=== PATIENT | female | born 1960 ===

== ENCOUNTER 2016-10-07 09:50 | Emergency (ER) | payer MEDICARE, MEDICAID ==
[2016-10-07 09:50] VITALS: BMI 31.4
[2016-10-07 10:19] VITALS: BP 128/74; PULSE 92; RESP 16; TEMP 98.3; O2SAT 97
--- NOTE | 2016-10-07 10:43 | C.PDOC ---
History Of Present Illness The patient, a 56 y/o female who is morbidly obese with PMHx of HTN, DM, and is s/p stroke with right-sided weakness, presents to the ED for evaluation of left buttock pain that radiates down her left lower extremity for 1 week. Patient describes a shooting pain that is 8/10 in severity and reports associated extremity numbness and paresthesia. Patient denies fever, chills, headache, nausea, vomiting. Time Seen by Provider: 10/07/16 10:37 Chief Complaint (Nursing): Back Pain History Per: Patient History/Exam Limitations: no limitations Onset/Duration Of Symptoms: Other (1 week ) Current Symptoms Are (Timing): Still Present Quality Of Discomfort: "Pain", Other (shooting ) Pain Scale Rating Of: 8 Associated Symptoms: New Numbness Additional History Per: Patient Past Medical History Reviewed: Historical Data, Nursing Documentation, Vital Signs Vital Signs: Last Vital Signs Temp 98.3 F 10/07/16 10:18 Pulse 92 H 10/07/16 10:18 Resp 16 10/07/16 10:18 BP 128/74 10/07/16 10:18 Pulse Ox 97 10/07/16 13:21 - Medical History PMH: Anemia, CVA, Diabetes, HTN, Hypercholesterolemia, Sleep Apnea (USES C PAP) Denies: Chronic Kidney Disease Surgical History: No Surg Hx Family History: States: Unknown Family Hx - Social History Hx Tobacco Use: No Hx Alcohol Use: No - Immunization History Hx Tetanus Toxoid Vaccination: Yes Hx Influenza Vaccination: Yes Hx Pneumococcal Vaccination: Yes Review Of Systems Except As Marked, All Systems Reviewed And Found Negative. Constitutional: Negative for: Fever, Chills Gastrointestinal: Negative for: Nausea, Vomiting Musculoskeletal: Positive for: Leg Pain (left ), Other (+left buttock pain ) Neurological: Positive for: Numbness (left lower extremity ), Other (+ paresthesia to left lower extremity ). Negative for: Headache Physical Exam - Physical Exam Appears: Non-toxic, No Acute Distress, Other (+morbidly obese ) Skin: Normal Color, Warm, Dry Head: Atraumatic, Normacephalic Eye(s): bilateral: Normal Inspection, PERRL, EOMI Oral Mucosa: Moist Neck: Normal ROM, Supple Chest: Symmetrical, No Deformity, No Tenderness Cardiovascular: Rhythm Regular, No Murmur Respiratory: Normal Breath Sounds, No Rales, No Rhonchi, No Wheezing Back: Normal Inspection, No Vertebral Tenderness, No Paraspinal Tenderness Extremity: Normal ROM, No Tenderness, No Calf Tenderness, Capillary Refill ( less than 2 seconds ), No Deformity, No Swelling, Other (+right upper extremity is contacted ) Pulses: Left Dorsalis Pedis: Normal, Right Dorsalis Pedis: Normal Neurological/Psych: Oriented x3, Normal Speech, Normal Cognition Gait: Steady ED Course And Treatment O2 Sat by Pulse Oximetry: 97 (on RA) Pulse Ox Interpretation: Normal Medical Decision Making Medical Decision Making: Impression: 56 y/o female with left buttock pain radiating down left lower extremity, slight numbness and paresthesia Progress Notes: On reassessment, patient is resting comfortably, showing no signs of distress, and is stable for discharge. Patient will be provided with Rx for Motrin PO and Tramadol PO and is advised to follow up with her PMD within 1-2 days for further evaluation. Disposition Counseled Patient/Family Regarding: Diagnosis, Need For Followup, Rx Given - Disposition Referrals: Malachi Burkett MD [Non-Staff] - Disposition: HOME/ ROUTINE Disposition Time: 10:44 Condition: STABLE Prescriptions: Ibuprofen [Motrin] 1 tab PO TID PRN #30 tab PRN Reason: Pain traMADol/Acetaminophen [Ultracet 37.5/325 mg] 1 tab PO TID PRN #20 tab PRN Reason: pain Instructions: Sciatica (ED), Back Exercises (ED) Forms: Gen Discharge Inst Brazilian - POA Present On Arrival: None - Clinical Impression Clinical Impression: Sciatica - Scribe Statement The provider has reviewed the documentation as recorded by the Scribe (Mariela García) Provider Attestation: All medical record entries made by the Scribe were at my direction and personally dictated by me. I have reviewed the chart and agree that the record accurately reflects my personal performance of the history, physical exam, medical decision making, and the department course for this patient. I have also personally directed, reviewed, and agree with the discharge instructions and disposition.
== END 2016-10-07 11:09 | disposition home or self-care (01) ==
LOC: C.ER 09:50
DX: M54.32 Sciatica, left side (principal)

== ENCOUNTER 2016-11-28 23:57 | Inpatient (IN) | payer MEDICARE, MEDICAID ==
[2016-11-28 23:58] VITALS: BMI 31.4
[2016-11-29 01:31] LABS: BASO # 0.1 K/uL (0.0-0.2); EOS # 0.1 K/uL (0.0-0.7); HEMATOCRIT 37.7 % (34.0-47.0); LYMPH # 2.8 K/uL (1.0-4.3); LYMPH % 27.8 % (20.0-40.0); MEAN CELL VOLUME 85.5 fL (81.0-99.0); MEAN CORPUSCULAR HEMOGLOBIN 28.1 pg (27.0-31.0); MEAN CORPUSCULAR HGB CONC 32.9 g/dL (33.0-37.0); MEAN PLATELET VOLUME 10.1 fL (7.2-11.7); MONO # 0.9 K/uL (0.0-0.8); MONO % 8.8 % (0.0-10.0); RED CELL DISTRIBUTION WIDTH 15.2 % (11.5-14.5)
[2016-11-29 01:42] LABS: POTASSIUM 4.1 mmol/L (3.6-5.2)
[2016-11-29 01:44] LABS: ALB/GLOB RATIO 1.1 (1.0-2.1); BILIRUBIN,TOTAL 0.4 mg/dL (0.2-1.3); CALCIUM 9.1 mg/dl (8.6-10.4); TOTAL PROTEIN 7.9 g/dL (6.3-8.3)
[2016-11-29 01:45] LABS: INR 0.8
[2016-11-29 01:56] LABS: TROPONIN I 0.114 ng/mL (0.00-0.120)
[2016-11-29] MEDS ORDERED: Sodium Chloride 0.9% 500 ML IV ONE (02:11)
[2016-11-29 02:24] LABS: RBC URINE 1 /hpf (0-3); URINE BILIRUBIN NEGATIVE (NEGATIVE); URINE BLOOD NEGATIVE (NEGATIVE); URINE COLOR Yellow (YELLOW); URINE GLUCOSE (UA) 3+ mg/dL (Normal); URINE KETONE TRACE mg/dL (NEGATIVE); URINE LEUKOCYTE ESTERASE 1+ Leu/uL (Negative); URINE PROTEIN NEGATIVE (NEGATIVE); URINE UROBILINOGEN NORMAL mg/dL (0.2-1.0); WBC URINE 22 /hpf (0-5)
[2016-11-29 02:34] LABS: ABG ALLEN TEST POS; DRAW SITE LR
[2016-11-29] MEDS ORDERED: Sodium Chloride 0.9% 1,000 ML IV ONE (02:38)
[2016-11-29] MEDS ORDERED: Sodium Chloride 0.9% 1,000 ML ONE (03:07)
--- NOTE | 2016-11-29 06:30 | C.PDOC ---
Time Seen by Provider: 11/29/16 01:07 Chief Complaint (Nursing): Chest Pain History Per: Patient Onset/Duration Of Symptoms: Hrs (Just [employer]IST) Current Symptoms Are (Timing): Still Present Severity: Moderate Quality: "Pain" Modifying Factors: Other Indicated Below Alleviating Factors: None Additional History Per: Prior Records Past Medical History Reviewed: Historical Data, Nursing Documentation, Vital Signs Vital Signs: Last Vital Signs Temp 97.8 F 11/29/16 06:26 Pulse 96 H 11/29/16 06:26 Resp 24 11/29/16 06:26 BP 123/50 L 11/29/16 06:26 Pulse Ox 97 11/29/16 06:30 - Medical History PMH: Anemia, CVA (affecting right side), Diabetes, HTN, Hypercholesterolemia, Sleep Apnea (USES C PAP) Family History: States: Unknown Family Hx - Social History Hx Tobacco Use: No Hx Alcohol Use: No Hx Substance Use: No - Immunization History Hx Tetanus Toxoid Vaccination: Yes Hx Influenza Vaccination: Yes Hx Pneumococcal Vaccination: Yes Review Of Systems Except As Marked, All Systems Reviewed And Found Negative. Constitutional: Negative for: Fever Cardiovascular: Positive for: Chest Pain Respiratory: Positive for: Shortness of Breath. Negative for: Hemoptysis Gastrointestinal: Negative for: Vomiting, Abdominal Pain, Diarrhea Musculoskeletal: Positive for: Back Pain Skin: Negative for: Rash Neurological: Negative for: Weakness, Numbness, Seizures, Altered Mental Status Physical Exam - Physical Exam Appears: Chronically Ill Skin: Normal Color, Warm, Dry Head: Atraumatic, Normacephalic Eye(s): bilateral: PERRL, EOMI Neck: Normal ROM, Supple Cardiovascular: Rhythm Regular Respiratory: Normal Breath Sounds, No Accessory Muscle Use Gastrointestinal/Abdominal: Soft, No Tenderness Back: No CVA Tenderness Extremity: No Calf Tenderness Neurological/Psych: Oriented x3, No Normal Motor (right sided weakness due to old CVA) ED Course And Treatment - Laboratory Results Result Diagrams: 11/29/16 01:28 11/29/16 01:28 Interpretation Of Abnormal: Hyperglycemia. Elevated lactate. Normal CBC. ECG: Interpreted By Me, Viewed By Me ECG Rhythm: Sinus Tachycardia, Nonspecific Changes ECG Interpretation: Abnormal Rate From EC O2 Sat by Pulse Oximetry: 97 Pulse Ox Interpretation: Normal - Radiology CXR: Interpreted by Me, Viewed By Me CXR Interpretation: Yes: No Acute Disease Disposition Counseled Patient/Family Regarding: Studies Performed, Diagnosis - Disposition Disposition Time: 07:00 Condition: FAIR - Clinical Impression Clinical Impression: Chest pain Physician Patient Turnover Patient Signed Over To: Ade Barron Handoff Comments: to f/up CTA of chest and dispo
[2016-11-29] MEDS ORDERED: cefTRIAXone IV 1 gm in Dextros 50 ML IV STA (07:59)
[2016-11-29] MEDS ORDERED: Azithromycin 500 MG in Sodium Chloride 0.9% 250 ML IVPB STA (08:00)
[2016-11-29] MEDS ORDERED: Azithromycin 500mg/250ML NS 500 MG/250 ML BAG IVPB ONE (08:08)
[2016-11-29] MEDS ORDERED: cefTRIAXone IV 1 gm in Dextros 50 ML IVPB ONE (08:08)
--- NOTE | 2016-11-29 10:22 | CP.PCM.HP ---
<Reshma Carrasco Maryana - Last Filed: 11/29/16 14:49> Meds Allergies/Adverse Reactions: Allergies Allergy/AdvReac Type Severity Reaction Status Date / Time ciprofloxacin [From Cipro] Allergy ITCHING Verified 11/29/16 00:14 ciprofloxacin HCl Allergy ITCHING Verified 11/29/16 00:14 [From Cipro] Results - Vital Signs Recent Vital Signs: Last Vital Signs Temp 98.6 F 11/29/16 13:15 Pulse 91 H 11/29/16 14:00 Resp 16 11/29/16 14:00 BP 141/69 11/29/16 13:21 Pulse Ox 95 11/29/16 14:00 - Labs Result Diagrams: 11/29/16 01:28 11/29/16 13:09 Labs: Laboratory Results - last 24 hr 11/29/16 11/29/16 11/29/16 09:49 10:29 10:45 Sodium Potassium Chloride Carbon Dioxide Anion Gap BUN Creatinine Est GFR ( Amer) Est GFR (Non-Af Amer) POC Glucose (mg/dL) 343 H Random Glucose Lactic Acid 4.1 H* Calcium Total Bilirubin AST ALT Alkaline Phosphatase Total Creatine Kinase 553 H CK-MB (Mass) 41.3 H Troponin I, Quant 13.5000 H* Total Protein Albumin Globulin Albumin/Globulin Ratio 11/29/16 13:09 Sodium 136 Potassium 4.4 Chloride 100 Carbon Dioxide 21 L Anion Gap 19 BUN 11 Creatinine 0.9 Est GFR ( Amer) > 60 Est GFR (Non-Af Amer) > 60 POC Glucose (mg/dL) Random Glucose 259 H Lactic Acid Calcium 8.5 L Total Bilirubin 0.3 AST 76 H D ALT 32 Alkaline Phosphatase 67 Total Creatine Kinase 561 H CK-MB (Mass) 37.8 H Troponin I, Quant 11.3000 H* Total Protein 6.6 Albumin 3.5 Globulin 3.1 Albumin/Globulin Ratio 1.1 Assessment & Plan (1) Acute coronary syndrome Status: Acute Comment: Patient seen, examined in the emergency room this morning. Patient's first troponin negative. Patient had take 4 baby Aspirin the night before. Today 's 2nd troponin was increased to 13. Associated EKG does not show ST elevation; was reviewed with actuarial science professor electronic tech (Dr. Ahn). Cardiology ( Dr. Ahn) on consult-->recommended for ICU monitoring, start heparin drip, load Plavix, full dose Aspirin, NS 75cc/hr, NPO after midnight, and cardiac catherization in the morning. Critical care (Dr. Cristina) seen and accepted the patient to ICU. Patient started on aspirin, beta-dean, leonid-inhibitor, statin, and nitro sublingual PRN chest pain. Heparin drip ordered per cardiology. Risk factor: Diabetes, Hypertension, Hyperlipidemia, Grandfather ( father) side has had heart problems. Echocardiogram ordered (2) Non-STEMI (non-ST elevated myocardial infarction) Status: Acute Comment: Patient seen, examined in the emergency room this morning. Patient's first troponin negative. Patient had take 4 baby Aspirin the night before. Today 's 2nd troponin was increased to 13. Associated EKG does not show ST elevation; was reviewed with actuarial science professor electronic tech (Dr. Ahn). Cardiology ( Dr. Ahn) on consult-->recommended for ICU monitoring, start heparin drip, load Plavix, full dose Aspirin, NS 75cc/hr, NPO after midnight, and cardiac catherization in the morning. Critical care (Dr. Cristina) seen and accepted the patient to ICU. Patient started on aspirin, beta-dean, leonid-inhibitor, statin, and nitro sublingual PRN chest pain. (3) D-dimer, elevated Status: Acute Comment: Elevated D-dimer. CT Chest (11/29/16): no evidence of pulmonary embolism. Bilateral lower lobe linear scar/atelectasis. Incidental 4mm upper lobe nodule. Otherwise unremarkable examination. Patient has mild trace edema-- >order venous doppler r/o DVT (4) Diabetes Status: Chronic Comment: Lantus 40 units subq HS. Patient does take Metfomin at home, which was held on admission. Hgba1c, lipid panel ordered. Leonid-inhibitor and statin (5) Hypertension Status: Chronic Comment: Patient reports she takes Clonidine 0.3mg POqHS, Lopressor, and Lisinopril. Held Clonidine on admission. Lopressor and Lisinopril dose adjusted. Monitor vital signs and adjust if necessary (6) Hyperlipidemia Status: Chronic Comment: Fasting lipid panel in AM. Crestor 40mg PqHS (7) History of CVA (cerebrovascular accident) Status: Chronic Comment: History of CVA in 2000 with right sided residual weakness. Used to need cane but is ambulatory on her own. Aspirin 81mg PO daily. Crestor 40mg POqHS. Blood pressure control. Neurology (Dr. Munguia) on consult-->will see patient this afternoon. CT Head (11/29/16): no evidence of acute infarct. No intracranial hemorrhage. Old left basal ganglia/coronal radiate infarct. Small old right frontoparietal infarct (8) Elevated lactic acid level Status: Acute Comment: Monitor lactic acid. Order for procalcitonin, blood and urine cultures. CT Chest is negative for pneumonia. Patient received dose of Rocephin and Azithromycin in the ED (9) Prophylactic measure Status: Chronic Comment: Heparin drip. Pepcid 20mg PO bid. PT/OT eval. Patient is full code-- >verified on admission. She does not have living family. - Assessment and Plan (Free Text) Assessment: Further addendums per my note. Attending/Attestation - Attestation I have personally seen and examined this patient.: Yes I have fully participated in the care of the patient.: Yes I have reviewed all pertinent clinical information: Yes Notes (Text): Patient reports last night around 10pm had chest pain, heaviness which spread across her chest and back associated nausea. Patient took Lantus 40 units thinking it was her diabetes acting up but chest pain did not resolve. Patient called paramedics who advised her to take Aspirin 81mg X 4 tabs and picked her up to take to hospital. Patient reports she had some chest pain it resolved. Patient routinely takes Aspirin, blood pressure, and insulin. Patient reports pleuritic chest pain, dry cough, denies headache, denies fever, denies chills, denies vomitting, denies constipation, denies dysuria, denies numbness or tingling, reports right sided weakness since her stroke in 2000. Patient is ambulatory. Patient's second troponin became 13 with no EKG supporting ST elevation. Discussed with cardiology (actuarial science professor electronic tech--> recommend heparin drip, loading dose of Plavix and Aspirin, and further monitoring in the ICU, and neurology consult given patient history of stroke in 2000. Neurology recommended head ct which is negative for acute bleed, but will come see the patient this afternnon. Critical care (Dr. Cristina) came and accepted the patient. Further monitoring in the ICU. Discussed admitting orders with day-time resident. 1) Acute Coronary Syndrome Non STEMI Admit to ICU SKIP: 4 (20% risk at 14 days of all-cause mortalisty, new or recurrent [place], or severe recurrent ischemia requiring urgenct revascularization) Cardiology (Dr. ahn) on board Aspirin, Plavix, Heparin drip, Beta-dean, Leonid-inhibitor, Statin Troponin: 13 (2nd), f/u ELIZ and EKG EKG does not show ST elevation reviewed with code heart Risk factor: DM, HTN, hypercholestrol, family hx of cardiac NS 75 cc/hr Held meformin on admission; patient had a CT angio r/o PE; iv fluids to prevent contrast induced nephropathy NPO after midnight Cardiac cath in the AM <Duran To - Last Filed: 11/29/16 17:25> History of Present Illness - History of Present Illness History of Present Illness: CC: chest pain HPI: 56F PMHx insulin dependent DM, diverticulosis, HTN, CVA 2000 with right sided weakness and HLD presented with chest pain. Pt said she was watching TV last night when the severe pressure pain started lower sternum radiating to her left arm, jaws and back for an hour. Pt thought it was her DM acting up so she took her Lantus without relief. Pt then called ambulance and was given additional ASA. Pt has associated SOB. Pt had similar but milder pain on lasting only 10 minutes. Pt has associated SOB but denied other symptoms. Pt sleeps with one pillow and takes hour long walks regularly without cane. Pt compliant with her medications. PMHx: see above. PSHx: fibroid removal 20 years ago, rotator cuff repair 2003 and 2014, cataract surgery 2011 FMHx: maternal grandfather had DM and [place] at 85 years old, paternal grandmother has DM Social: last tobacco and ETOH 1981 Allergies: Cipro (vomiting and facial flushing) PMD: Khris Present on Admission - Present on Admission Any Indicators Present on Admission: No Review of Systems - Constitutional Constitutional: absent: Anorexia, Chills, Fever, Weakness - Cardiovascular Cardiovascular: Chest Pain, Chest Pain at Rest, Dyspnea. absent: Leg Edema, Orthopnea - Respiratory Respiratory: absent: Cough, Dyspnea - Gastrointestinal Gastrointestinal: absent: Constipation, Diarrhea, Nausea, Vomiting - Genitourinary Genitourinary: absent: Dysuria - Neurological Neurological: absent: Dizziness, Numbness, Paresthesias Past Patient History - Infectious Disease Hx of Infectious Diseases: None - Past Medical History & Family History Past Medical History?: Yes - Past Social History Smoking Status: Never Smoked - CARDIAC Hx Hypercholesterolemia: Yes Hx Hypertension: Yes - PULMONARY Hx Sleep Apnea: Yes (USES C PAP) - NEUROLOGICAL Hx Neurological Disorder: Yes HX Cerebrovascular Accident: Yes (2000 RIGHT SIDED WEAKNESS) - HEENT Hx HEENT Problems: Yes Hx Cataracts: Yes (RIGHT IOL) - RENAL Hx Chronic Kidney Disease: No - ENDOCRINE/METABOLIC Hx Endocrine Disorders: Yes Hx Diabetes Mellitus Type 2: Yes - HEMATOLOGICAL/ONCOLOGICAL Hx Anemia: Yes - INTEGUMENTARY Hx Dermatological Problems: No - MUSCULOSKELETAL/RHEUMATOLOGICAL Hx Musculoskeletal Disorders: Yes Hx Osteoarthritis: Yes (LEFT ARM AND LEG) - GASTROINTESTINAL Hx Gastrointestinal Disorders: Yes Hx Colitis: Yes - GENITOURINARY/GYNECOLOGICAL Hx Genitourinary Disorders: Yes (H/O FIBROID UTERUS, LEFT OOPHERECTOMY) - PSYCHIATRIC Hx Substance Use: No - SURGICAL HISTORY Hx Surgeries: Yes (LEFT OOPHERECTOMY) Hx Cataract Extraction: Yes (RIGHT IOL) Hx Orthopedic Surgery: Yes (BILATERAL ROTATOR CUFF REPAIR) Other/Comment: RIGHT FOOT SURGERY - ANESTHESIA Hx Anesthesia: Yes Hx Anesthesia Reactions: No Hx Malignant Hyperthermia: No Physical Exam - Constitutional Appears: Non-toxic, No Acute Distress - Head Exam Head Exam: NORMOCEPHALIC - Eye Exam Eye Exam: Normal appearance Pupil Exam: NORMAL ACCOMODATION - ENT Exam ENT Exam: Mucous Membranes Moist - Respiratory Exam Respiratory Exam: Chest Wall Tenderness, Clear to Auscultation Bilateral, NORMAL BREATHING PATTERN. absent: Wheezes - Cardiovascular Exam Cardiovascular Exam: REGULAR RHYTHM, +S1, +S2. absent: Tachycardia, Gallop, Irregular Rhythm, Rubs, +S4, Systolic Murmur - GI/Abdominal Exam GI & Abdominal Exam: Normal Bowel Sounds, Soft. absent: Tenderness - Extremities Exam Extremities exam: Negative for: pedal edema, tenderness Additional comments: Right arm weakness and contracted - Neurological Exam Neurological exam: Alert, Oriented x3 - Psychiatric Exam Psychiatric exam: Normal Mood - Skin Skin Exam: Dry, Intact Results - Vital Signs Recent Vital Signs: Last Vital Signs Temp 97.8 F 11/29/16 06:26 Pulse 92 H 11/29/16 08:58 Resp 18 11/29/16 08:58 BP 132/82 11/29/16 08:58 Pulse Ox 98 11/29/16 08:58 - Labs Result Diagrams: 11/29/16 15:05 11/29/16 13:09 Assessment & Plan - Assessment and Plan (Free Text) Assessment: NSTEMI Admit to ICU. Cardio Dr. Ahn consulted, help appreciated. D dimer elevated 381, CT chest negative for PE but showed RLL pneumonitis. Troponin 0.114, 13.5, 11.3, EKG showed new Q wave on lead III compared to EKG in 2016. No ST elevation seen. Heparin drip started. Plavix 300mg PO, ASA 325mg PO, Crestor 40mg PO and Lopressor 12.5mg PO given. Nitroglycerin PRN. NC 2L. Repeat EKG and ELIZ ordered. NPO for Cath on Wednesday afternoon. Pt can have light breakfast. Will stop Heparin 8am. Further management as per ICU. Hx of CVA in [address] done and showed old left basal ganglia and old right frontoparietal infarct, no acute etiologies per report. Continue home med ASA and Crestor. Neuro Dr. Munguia consulted, help appreciated. Pneumonitis CT chest showed RLL pneumonitis. Zithromax and Rocephin. F/U cultures. F/U procalcitonin. HTN Continue Norvasc 10mg PO daily. Lisinopril decreased to 20mg PO daily. Lopressor 12.5mg PO q12H. F/U ECHO. DM RISS, accucheck. Lantus 40U SC HS. Novolog 20U SC TID. Metformin on hold. F/U A1c. HLD Crestor 40mg PO HS. F/U lipid panel. Prophylactic measure Hep drip, Pepcid. F/U venous doppler.
--- NOTE | 2016-11-29 10:51 | CT ---
PROCEDURE: CT Chest with contrast (Pulmonary Angiogram) HISTORY: Chest pain, r/o PE COMPARISON: None available. TECHNIQUE: Axial computed tomography images were obtained of the chest in the pulmonary arterial phase of enhancement. Coronal and sagittal reformatted images were created and reviewed. Intravenous contrast dose: 100 mL Visipaque 320 Radiation dose: Total exam DLP = 462.24 mGy-cm. This CT exam was performed using one or more of the following dose reduction techniques: Automated exposure control, adjustment of the mA and/or kV according to patient size, and/or use of iterative reconstruction technique. FINDINGS: PULMONARY ARTERIES: Unremarkable. No pulmonary embolism. AORTA: No acute findings. No thoracic aortic aneurysm. LUNGS: Bilateral lower lobe linear scar/ atelectasis. No pulmonary infiltrate. Incidental 4 mm nodule right upper lobe. No followup is advised as per Fleischner society criteria. No other pulmonary mass. . PLEURAL SPACES: Unremarkable. No effusion or pneuomothorax. HEART: Unremarkable. No cardiomegaly. No significant pericardial effusion. LYMPH NODES: No lymphadenopathy. BONES, CHEST WALL: Unremarkable. No fracture or destructive lesion OTHER FINDINGS: Unremarkable. IMPRESSION: No evidence of pulmonary embolism. Bilateral lower lobe linear scar/ atelectasis. Incidental 4 mm right upper lobe nodule. Otherwise unremarkable examination. Preliminary interpretation of this examination was reported by [facility] at 7:56 a.m. on 11/29/2016. There is concurrence of this report with the preliminary interpretation.
[2016-11-29] MEDS ORDERED: Heparin25000 units/250ml 1/2NS 25,000 UNITS/250 ML BAG IV PRN ×2 (11:51→12:30)
[2016-11-29] MEDS ORDERED: Heparin 5,000 UNITS in Sodium Chloride 0.9% 500 ML IV ONE (12:02)
[2016-11-29] MEDS: Sodium Chloride 0.9% 1,000 ML IV SCH (13:19)
[2016-11-29 13:24] LABS: CHLORIDE 100 mmol/L (98-107); POTASSIUM 4.4 mmol/L (3.6-5.2); SODIUM 136 mmol/L (132-148)
[2016-11-29 13:26] LABS: ALB/GLOB RATIO 1.1 (1.0-2.1); AST/SGOT 76 U/L (14-36); BILIRUBIN,TOTAL 0.3 mg/dL (0.2-1.3); CARBON DIOXIDE 21 mmol/L (22-30); GFR AFRICAN-AMERICAN > 60; TOTAL PROTEIN 6.6 g/dL (6.3-8.3)
[2016-11-29 13:27] LABS: ALKALINE PHOSPHATASE 67 U/L (38-126); ALT/SGPT 32 U/L (9-52); BLOOD UREA NITROGEN 11 mg/dL (7-17); CALCIUM 8.5 mg/dl (8.6-10.4); GLUCOSE,RANDOM 259 mg/dL (65-105)
--- NOTE | 2016-11-29 13:42 | CT ---
PROCEDURE: CT HEAD WITHOUT CONTRAST. HISTORY: hx of stroke, on hep drip COMPARISON: None available. TECHNIQUE: Axial computed tomography images were obtained through the head/brain without intravenous contrast. Radiation dose: Total exam DLP = 863.00 mGy-cm. This CT exam was performed using one or more of the following dose reduction techniques: Automated exposure control, adjustment of the mA and/or kV according to patient size, and/or use of iterative reconstruction technique. FINDINGS: HEMORRHAGE: No intracranial hemorrhage. BRAIN: No intracranial mass. There is a remote infarct in the left basal ganglia involving both lentiform nucleus and caudate head as well as external capsule, extending into the virk radiata and deep frontal white matter. There is very small area of focal encephalomalacia in the right high frontoparietal region. This likely reflects old infarct. There is no evidence of acute infarct. Mild periventricular white matter lucency is noted consistent with age-related microvascular ischemic change. VENTRICLES: There is ex vacuo dilatation of frontal horn of the left lateral ventricle as a result of adjacent encephalomalacia. There is no evidence of hydrocephalus. There is no midline shift. CALVARIUM: Unremarkable. PARANASAL SINUSES: Unremarkable as visualized. No significant inflammatory changes. MASTOID AIR CELLS: Unremarkable as visualized. No inflammatory changes. OTHER FINDINGS: None. IMPRESSION: No evidence of acute infarct. No intracranial hemorrhage. Old left basal ganglia/ coronal radiata infarct. Small old right frontoparietal infarct.
--- NOTE | 2016-11-29 14:57 | RAD ---
PROCEDURE: CHEST RADIOGRAPH, 1 VIEW HISTORY: chest pain COMPARISON: None available. FINDINGS: LUNGS: Clear. PLEURA: No pneumothorax or pleural fluid seen. CARDIOVASCULAR: Normal. OSSEOUS STRUCTURES: No significant abnormalities. VISUALIZED UPPER ABDOMEN: Normal. OTHER FINDINGS: None. IMPRESSION: No active disease.
[2016-11-29 15:14] LABS: BASO # 0.1 K/uL (0.0-0.2); BASO % 1.3 % (0.0-2.0); EOS # 0.1 K/uL (0.0-0.7); EOS % 1.3 % (0.0-4.0); HEMATOCRIT 34.8 % (34.0-47.0); LYMPH # 4.7 K/uL (1.0-4.3); LYMPH % 42.8 % (20.0-40.0); MEAN CELL VOLUME 85.7 fL (81.0-99.0); MEAN CORPUSCULAR HEMOGLOBIN 27.4 pg (27.0-31.0); MEAN PLATELET VOLUME 9.8 fL (7.2-11.7); MONO % 8.8 % (0.0-10.0); NRBC % 0.1 % (0.0-2.0); RED CELL DISTRIBUTION WIDTH 15.1 % (11.5-14.5); WHITE BLOOD COUNT 11.1 K/uL (4.8-10.8)
--- NOTE | 2016-11-29 15:30 | CON ---
DATE: 11/29/2016 REASON FOR CONSULTATION: Neurological clearance for cardiac catheterization because of previous stroke. CHIEF COMPLAINT: The patient came to [facility] last night with a history of chest pain and pressure in the chest. The patient was found to have increased troponin level and patient is scheduled to have cardiac catheterization tomorrow. Prior to that, they need neurological clearance because of the previous stroke. HISTORY OF PRESENTING ILLNESS: The patient is a 56-year-old, right-handed, female, usual state of health and while she was watching TV around 10: 00, she had a chest pain at the midsternal region. The pain is pressure in nature and she feels like somebody was sitting on her chest. There is some shortness of breath. Because of the persistent pain, she decided to call 911. Following Emergency Room admission, patient slowly started to feel better. In the Emergency Room, patient did have CT angiogram, which ruled out dissection, pulmonary embolism, shows some mild right lower lobe pneumonitis. PAST MEDICAL HISTORY: Hypertension, coronary artery disease, non-insulin dependent diabetes mellitus. PERSONAL HISTORY: No history of smoking or alcohol use. ALLERGIES: ALLERGIC TO CIPRO. REVIEW OF SYSTEMS: As per H and P. MEDICATIONS: Aspirin, azithromycin, rosuvastatin, insulin, metoprolol, nitroglycerin, amlodipine. PHYSICAL EXAMINATION: VITAL SIGNS: Blood pressure 131/69 with a mean arterial pressure of 93, respiratory rate 16, temperature afebrile. NECK: Supple. No carotid bruit. HEART SOUNDS: Regular. CHEST: Fair air entry. EXTREMITIES: No edema in legs. NEUROLOGIC EXAMINATION: MENTAL STATUS: She is awake, alert, oriented to person, place, and time. Speech is clear. Naming, repetition, fluency, comprehension intact. CRANIAL NERVES: Visual field intact. Pupils reactive to light. Extraocular movements normal. No nystagmus. Mild facial asymmetry manifesting as a flattening of the right nasolabial fold. Hearing is normal. Tongue is midline. Good gag. MOTOR: On outstretched hand with eyes closed, no drift noted on the left side. Right side increased tone with flexion deformity of wrist and fingers on the right side. Right leg is also somewhat increased tone to compare with the left side. DEEP TENDON REFLEXES: Biceps, brachioradialis, triceps 1+ on the left side, right side was 2+. Both knees are absent. Both ankles are absent. Plantars are upgoing on the right side, left side was downgoing. SENSORY: Grossly intact, mild sensorimotor neuropathy. GAIT: Deferred at this time. CONCLUSION: Upon reviewing her history and neurological examination, the patient has been presenting with right hemiparesis. The current examination consistent with left subcortical dysfunction. This is probably her old stroke from 2000. The patient also showed with mild distal sensorimotor neuropathy. CT of the head reviewed. No acute pathologies noted, old stroke over left caudate, virk radiata and external capsule showed significant ischemic changes consistent with old stroke. There is a mild hyperlucent area consistent with old stroke in right frontoparietal region as well. CT angiogram as stated above. EKG normal sinus rhythm. BLOOD WORKUP: WBC 10.0, hemoglobin 12.4, hematocrit 37.7. PT 9.5, INR 0.8, PTT 28. D-dimer High. Blood gas, pH 7.33, pCO2 38, pO2 73, bicarbonate 21.2, saturation of 97%. Blood glucose 337. Sodium 137, potassium 4.1, chloride 98, bicarbonate 19, BUN 18, creatinine 1.2, calcium 9.1, bilirubin 0.4. BNP 144. Troponin initial 13.5 down to 7.3. Urine showed some leukocytes. RECOMMENDATIONS: Continue antiplatelets with pressure control as she has been getting medication. From neurological point of view, she is cleared for tomorrow's cardiac catheterization to rule out coronary artery disease. Regarding previous old stroke, patient has spastic hemiparesis. She could be benefitted with botulinum toxin over the right forearm and hand to break her spasticity. The patient's condition has been well discussed with her. The patient will be followed closely while she is in the hospital. Ruddy Munguia MD cc: [id number] TT: 11/29/2016 15:29:57 Confirmation # [id number] Dictation # [id number] en MTDD
[2016-11-29 15:57] LABS: THYROID STIMULATING HORMONE 2.55 mIU/L (0.46-4.68)
[2016-11-29] MEDS: (Novolog) Insulin Aspart, Recombinant 100 u/ml 10 ml vial SC SCH ×2 (17:10→17:30)
[2016-11-29] MEDS: (Novolin R) Insulin Human Regular 100 units/ml vial SC SCH ×2 (17:30→22:15)
[2016-11-29] MEDS: Saccharomyces Boulardi 250 mg Cap PO SCH (17:30)
--- NOTE | 2016-11-29 17:45 | CP.PCM.PN ---
Subjective - Date & Time of Evaluation Date of Evaluation: 11/29/16 Time of Evaluation: 13:00 - Subjective Subjective: CC: chest pain HPI: 56F PMHx insulin dependent DM, diverticulosis, HTN, CVA 2000 with right sided weakness and HLD presented with chest pain. Pt said she was watching TV last night when the severe pressure pain started lower sternum radiating to her left arm, jaws and back for an hour. Pt thought it was her DM acting up so she took her Lantus without relief. Pt then called ambulance and was given additional ASA. Pt has associated SOB. Pt had similar but milder pain on lasting only 10 minutes. Pt has associated SOB but denied other symptoms. Pt sleeps with one pillow and takes hour long walks regularly without cane. Pt compliant with her medications. PMHx: see above. PSHx: fibroid removal 20 years ago, rotator cuff repair 2003 and 2014, cataract surgery 2011 FMHx: maternal grandfather had DM and NV at 85 years old, paternal grandmother has DM Social: last tobacco and ETOH 1981 Allergies: Cipro (vomiting and facial flushing) PMD: Khris Present on Admission - Present on Admission Any Indicators Present on Admission: No Review of Systems - Constitutional Constitutional: absent: Anorexia, Chills, Fever, Weakness - Cardiovascular Cardiovascular: Chest Pain, Chest Pain at Rest, Dyspnea. absent: Leg Edema, Orthopnea - Respiratory Respiratory: absent: Cough, Dyspnea - Gastrointestinal Gastrointestinal: absent: Constipation, Diarrhea, Nausea, Vomiting - Genitourinary Genitourinary: absent: Dysuria - Neurological Neurological: absent: Dizziness, Numbness, Paresthesias Physical Exam - Constitutional Appears: Non-toxic, No Acute Distress - Head Exam Head Exam: NORMOCEPHALIC - Eye Exam Eye Exam: Normal appearance Pupil Exam: NORMAL ACCOMODATION - ENT Exam ENT Exam: Mucous Membranes Moist - Respiratory Exam Respiratory Exam: Chest Wall Tenderness, Clear to Auscultation Bilateral, NORMAL BREATHING PATTERN. absent: Wheezes - Cardiovascular Exam Cardiovascular Exam: REGULAR RHYTHM, +S1, +S2. absent: Tachycardia, Gallop, Irregular Rhythm, Rubs, +S4, Systolic Murmur - GI/Abdominal Exam GI & Abdominal Exam: Normal Bowel Sounds, Soft. absent: Tenderness - Extremities Exam Extremities exam: Negative for: pedal edema, tenderness Additional comments: Right arm weakness and contracted - Neurological Exam Neurological exam: Alert, Oriented x3 - Psychiatric Exam Psychiatric exam: Normal Mood - Skin Skin Exam: Dry, Intact Objective - Vital Signs/Intake and Output Vital Signs (last 24 hours): Temp Pulse Resp BP Pulse Ox 99.8 F H 87 21 136/70 94 L 11/29/16 16:00 11/29/16 17:10 11/29/16 17:10 11/29/16 16:21 11/29/16 17:10 Intake and Output: 11/29/16 11/29/16 06:59 18:59 Intake Total 252 Output Total 450 Balance -198 - Medications Medications: Current Medications Amlodipine Besylate (Norvasc) 10 mg PO DAILY [facility] Last Admin: 11/29/16 11:30 Dose: 10 mg Aspirin (Aspirin Chewable) 81 mg PO DAILY [facility] Last Admin: 11/29/16 10:14 Dose: 81 mg Famotidine (Pepcid) 20 mg IVP DAILY [facility] Sodium Chloride (Sodium Chloride 0.9%) 1,000 mls @ 75 mls/hr IV .[id number] [facility] Last Admin: 11/29/16 13:19 Dose: 75 mls/hr Heparin Sodium/Sodium Chloride (Heparin 15730 Units/250ml 1/2 Normal Saline) 25 ,000 units in 250 mls @ 9 mls/hr IV .Q24H PRN; Protocol; Per Protocol PRN Reason: PROTOCOL Stop: 11/30/16 08:00 Last Admin: 11/29/16 12:20 Dose: 9 mls/hr Insulin Aspart (Novolog) 20 unit SC TID [facility] Last Admin: 11/29/16 17:30 Dose: 20 unit Insulin Glargine (Lantus) 20 unit SC HS [facility] Insulin Human Regular (Novolin R) 0 unit SC ACHS [facility] PRN Reason: Protocol Last Admin: 11/29/16 17:30 Dose: 4 unit Lisinopril (Zestril) 20 mg PO DAILY [facility] Metoprolol Tartrate (Lopressor) 12.5 mg PO Q12H [facility] Last Admin: 11/29/16 12:39 Dose: 12.5 mg Nitroglycerin (Nitrostat Sl Tab) 0.4 mg SL Q5M PRN PRN Reason: chest pain Rosuvastatin Calcium (Crestor) 40 mg PO HS [facility] Last Admin: 11/29/16 12:39 Dose: 40 mg Saccharomyces Cherrydii (Florastor) 250 mg PO BID [facility] Last Admin: 11/29/16 17:30 Dose: 250 mg - Labs Labs: 11/29/16 15:05 PT 9.5 SECONDS (9.7-12.2) L 11/29/16 01:28 INR 0.8 11/29/16 01:28 APTT 28 SECONDS (21-34) 11/29/16 01:28 Assessment and Plan - Assessment and Plan (Free Text) Assessment: Assessment & Plan (1) Acute coronary syndrome/Non-ST elevation NV Status: Acute Peak troponin 13.5 Currently chest pain free For cath at 2pm NPO after breakfast (2) D-dimer, elevated Status: Acute Comment: Elevated D-dimer. CT Chest (11/29/16): no evidence of pulmonary embolism. Bilateral lower lobe linear scar/atelectasis. Incidental 4mm upper lobe nodule. Otherwise unremarkable examination. Patient has mild trace edema-- >order venous doppler r/o DVT (4) Diabetes Status: Chronic Comment: Lantus 40 units subq HS. Patient does take Metfomin at home, which was held on admission. Hgba1c, lipid panel ordered. Leonid-inhibitor and statin (5) Hypertension Status: Chronic Comment: Patient reports she takes Clonidine 0.3mg POqHS, Lopressor, and Lisinopril. Held Clonidine on admission. Lopressor and Lisinopril dose adjusted. Monitor vital signs and adjust if necessary (6) Hyperlipidemia Status: Chronic Comment: Fasting lipid panel in AM. Crestor 40mg PqHS (7) History of CVA (cerebrovascular accident) Status: Chronic Comment: History of CVA in 2000 with right sided residual weakness. Used to need cane but is ambulatory on her own. Aspirin 81mg PO daily. Crestor 40mg POqHS. Blood pressure control. Neurology (Dr. Munguia) on consult-->will see patient this afternoon. CT Head (11/29/16): no evidence of acute infarct. No intracranial hemorrhage. Old left basal ganglia/coronal radiate infarct. Small old right frontoparietal infarct (8) Elevated lactic acid level Status: Acute Comment: Monitor lactic acid. Order for procalcitonin, blood and urine cultures. CT Chest is negative for pneumonia. Patient received dose of Rocephin and Azithromycin in the ED (9) Prophylactic measure Status: Chronic Comment: Heparin drip. Pepcid 20mg PO bid. PT/OT eval. Patient is full code-- >verified on admission. She does not have living family.
--- NOTE | 2016-11-29 20:57 | CP.PCM.CON ---
History of Present Illness - History of Present Illness History of Present Illness: Chest pain. History present illness: 56-year-old female with history diabetes, diverticulosis, hypertension, CVA, admitted to the hospital with acute chest pain. In emergency room patient was evaluated. Noted to have elevated troponin level. Past medical history diverticulosis, hypertension, CVA. Surgical history fibroid surgery in the past. Family history diabetes, hypertension, MA Allergic to Cipro. Personal history ex-smoker, nonalcoholic no drugs. Review of systems: No headache, complaining of mild shortness of breath, palpitation and chest pain. On examination: HEENT PERRLA, neck supple No thyromegaly was noted and no cervical adenopathy noted Chest bilateral good air entry, no wheezing or rales noted CVS regular heart sound, no murmur Abdomen soft and no organomegaly Extremities no pedal edema, no leg swelling, pedal pulses are good. OCCUPATIONAL HEALTH TECHNICIAN alert awake oriented x3 no functional neurological deficit. EKG reviewed. Patient is at high risk for heart disease and cardiac post MA complication. Given the elevated troponin patient will need ICU monitoring. Assessment and recommendation: 56-year-old female with history of hypertension, diabetes, hypercholesteremia, CVA artery with acute non-ST elevation MA. Cardiology evaluation. Beta dean antiplatelets. Watch for CHF. Will follow the patient Past Patient History - Infectious Disease Hx of Infectious Diseases: None - Past Medical History & Family History Past Medical History?: Yes - Past Social History Smoking Status: Never Smoked - CARDIAC Hx Hypercholesterolemia: Yes Hx Hypertension: Yes - PULMONARY Hx Sleep Apnea: Yes (USES C PAP) - NEUROLOGICAL Hx Neurological Disorder: Yes HX Cerebrovascular Accident: Yes (2000 RIGHT SIDED WEAKNESS) - HEENT Hx HEENT Problems: Yes Hx Cataracts: Yes (RIGHT IOL) - RENAL Hx Chronic Kidney Disease: No - ENDOCRINE/METABOLIC Hx Endocrine Disorders: Yes Hx Diabetes Mellitus Type 2: Yes - HEMATOLOGICAL/ONCOLOGICAL Hx Anemia: Yes - INTEGUMENTARY Hx Dermatological Problems: No - MUSCULOSKELETAL/RHEUMATOLOGICAL Hx Musculoskeletal Disorders: Yes Hx Osteoarthritis: Yes (LEFT ARM AND LEG) - GASTROINTESTINAL Hx Gastrointestinal Disorders: Yes Hx Colitis: Yes - GENITOURINARY/GYNECOLOGICAL Hx Genitourinary Disorders: Yes (H/O FIBROID UTERUS, LEFT OOPHERECTOMY) - PSYCHIATRIC Hx Substance Use: No - SURGICAL HISTORY Hx Surgeries: Yes (LEFT OOPHERECTOMY) Hx Cataract Extraction: Yes (RIGHT IOL) Hx Orthopedic Surgery: Yes (BILATERAL ROTATOR CUFF REPAIR) Other/Comment: RIGHT FOOT SURGERY - ANESTHESIA Hx Anesthesia: Yes Hx Anesthesia Reactions: No Hx Malignant Hyperthermia: No Meds Home Medications: Home Medication List Medication Instructions Recorded Confirmed Type Acetaminophen [Tylenol 325mg tab] 650 mg PO Q6 PRN tab 12/03/16 Rx Aspirin [Aspirin Chewable] 81 mg PO DAILY 30 Days 12/03/16 Rx Clopidogrel [Plavix] 75 mg PO DAILY 30 Days 12/03/16 Rx Insulin Glargine, Recombina 40 unit SC HS #1 vial 12/03/16 Rx [Lantus] Lisinopril [Zestril] 20 mg PO DAILY 30 Days 12/03/16 Rx MetFORMIN [glucoPHAGE] 1,000 mg PO BID #60 12/03/16 11/29/16 Rx Metoprolol Tartrate [Lopressor] 50 mg PO Q12 60 Days 12/03/16 Rx Rosuvastatin Calcium [Crestor] 40 mg PO HS 30 Days 12/03/16 Rx amLODIPine [Norvasc] 10 mg PO DAILY #30 12/03/16 Rx Allergies/Adverse Reactions: Allergies Allergy/AdvReac Type Severity Reaction Status Date / Time ciprofloxacin [From Cipro] Allergy ITCHING Verified 11/29/16 00:14 ciprofloxacin HCl Allergy ITCHING Verified 11/29/16 00:14 [From Cipro] - Medications Medications: Current Medications Amlodipine Besylate (Norvasc) 10 mg PO DAILY [facility] Last Admin: 11/29/16 11:30 Dose: 10 mg Aspirin (Aspirin Chewable) 81 mg PO DAILY [facility] Last Admin: 11/29/16 10:14 Dose: 81 mg Famotidine (Pepcid) 20 mg IVP DAILY [facility] Sodium Chloride (Sodium Chloride 0.9%) 1,000 mls @ 75 mls/hr IV .[id number] [facility] Last Admin: 11/29/16 13:19 Dose: 75 mls/hr Heparin Sodium/Sodium Chloride (Heparin 33166 Units/250ml 1/2 Normal Saline) 25 ,000 units in 250 mls @ 9 mls/hr IV .Q24H PRN; Protocol; Per Protocol PRN Reason: PROTOCOL Stop: 11/30/16 08:00 Last Admin: 11/29/16 12:20 Dose: 9 mls/hr Insulin Aspart (Novolog) 20 unit SC TID [facility] Last Admin: 11/29/16 17:30 Dose: 20 unit Insulin Glargine (Lantus) 20 unit SC HS [facility] Insulin Human Regular (Novolin R) 0 unit SC ACHS [facility] PRN Reason: Protocol Last Admin: 11/29/16 17:30 Dose: 4 unit Lisinopril (Zestril) 20 mg PO DAILY [facility] Metoprolol Tartrate (Lopressor) 12.5 mg PO Q12H [facility] Last Admin: 11/29/16 12:39 Dose: 12.5 mg Nitroglycerin (Nitrostat Sl Tab) 0.4 mg SL Q5M PRN PRN Reason: chest pain Rosuvastatin Calcium (Crestor) 40 mg PO HS [facility] Last Admin: 11/29/16 12:39 Dose: 40 mg Saccharomyces Boulardii (Florastor) 250 mg PO BID [facility] Last Admin: 11/29/16 17:30 Dose: 250 mg Results - Vital Signs Recent Vital Signs: Last Vital Signs Temp 99.8 F H 11/29/16 16:00 Pulse 94 H 11/29/16 19:00 Resp 24 11/29/16 19:00 BP 150/120 H 11/29/16 18:22 Pulse Ox 94 L 11/29/16 19:00 - Labs Result Diagrams: 12/03/16 06:31 12/03/16 06:31 Labs: Laboratory Results - last 24 hr 11/29/16 11/29/16 11/29/16 15:03 15:05 15:05 WBC 11.1 H RBC 4.06 Hgb 11.1 Hct 34.8 MCV 85.7 MCH 27.4 MCHC 32.0 L RDW 15.1 H Plt Count 228 MPV 9.8 Neut % (Auto) 45.8 L Lymph % (Auto) 42.8 H [place] % (Auto) 8.8 Eos % (Auto) 1.3 Baso % (Auto) 1.3 Neut # 5.1 Lymph # 4.7 H [place] # 1.0 H Eos # 0.1 Baso # 0.1 APTT POC Glucose (mg/dL) Total Creatine Kinase 503 H CK-MB (Mass) 31.7 H Troponin I, Quant 10.2000 H* Triglycerides 312 H Cholesterol 125 LDL Cholesterol Direct 60 HDL Cholesterol 37 Procalcitonin 0.05 L TSH 3rd Generation 2.55 11/29/16 11/29/16 17:18 19:26 WBC RBC Hgb Hct MCV MCH MCHC RDW Plt Count MPV Neut % (Auto) Lymph % (Auto) [place] % (Auto) Eos % (Auto) Baso % (Auto) Neut # Lymph # [place] # Eos # Baso # APTT 49 H D POC Glucose (mg/dL) 273 H Total Creatine Kinase CK-MB (Mass) Troponin I, Quant Triglycerides Cholesterol LDL Cholesterol Direct HDL Cholesterol Procalcitonin TSH 3rd Generation
[2016-11-29] MEDS ORDERED: (Lantus) Insulin Glargine, Recombinant SC SCH (22:00)
[2016-11-29] MEDS: (Lantus) Insulin Glargine, Recombinant SC SCH (22:14)
[2016-11-30] MEDS: Sodium Chloride 0.9% 1,000 ML IV SCH (02:32)
[2016-11-30 02:44] LABS: BASO # 0.1 K/uL (0.0-0.2); BASO % 0.9 % (0.0-2.0); EOS # 0.2 K/uL (0.0-0.7); HEMATOCRIT 35.5 % (34.0-47.0); LYMPH # 4.9 K/uL (1.0-4.3); LYMPH % 47.4 % (20.0-40.0); MEAN CELL VOLUME 84.5 fL (81.0-99.0); MEAN CORPUSCULAR HEMOGLOBIN 27.3 pg (27.0-31.0); MEAN CORPUSCULAR HGB CONC 32.3 g/dL (33.0-37.0); MEAN PLATELET VOLUME 9.7 fL (7.2-11.7); MONO # 0.8 K/uL (0.0-0.8); MONO % 8.3 % (0.0-10.0); NRBC % 0.1 % (0.0-2.0); RED CELL DISTRIBUTION WIDTH 14.9 % (11.5-14.5); WHITE BLOOD COUNT 10.3 K/uL (4.8-10.8)
[2016-11-30 02:45] LABS: CHLORIDE 99 mmol/L (98-107); POTASSIUM 4.2 mmol/L (3.6-5.2); SODIUM 134 mmol/L (132-148)
[2016-11-30 02:47] LABS: BILIRUBIN,TOTAL 0.3 mg/dL (0.2-1.3); GFR AFRICAN-AMERICAN > 60
[2016-11-30 02:48] LABS: INR 0.9
[2016-11-30 02:48] LABS: ALB/GLOB RATIO 1.1 (1.0-2.1); ALKALINE PHOSPHATASE 64 U/L (38-126); ALT/SGPT 30 U/L (9-52); AST/SGOT 47 U/L (14-36); BLOOD UREA NITROGEN 13 mg/dL (7-17); CALCIUM 8.3 mg/dl (8.6-10.4); CARBON DIOXIDE 22 mmol/L (22-30); GLUCOSE,RANDOM 199 mg/dL (65-105); PHOSPHOROUS 3.7 mg/dL (2.5-4.5); TOTAL PROTEIN 6.4 g/dL (6.3-8.3)
[2016-11-30 02:49] LABS: MAGNESIUM 1.4 mg/dL (1.6-2.3)
--- NOTE | 2016-11-30 07:26 | CP.CCUPN ---
CCU Subjective - Physician Review Subjective (Free Text): 11/30/16 11:54 Patient seen and examined at bedside. Reports she feels much better since admission and is no longer having any chest pain. Patient is aware she is due for cardiac cath later today and is NPO after breakfast except meds. Patient denied any headache, dizziness, chest pain, palpitations, SOB, cough, abd pain, nausea, vomiting, bowel/bladder complaints, pain in her legs b/l. She complained that she felt her LLE is slightly more swollen in comparison to the RLE. CCU Objective - Vital Signs / Intake & Output Vital Signs (Last 4 hours): Vital Signs Temp Pulse Resp BP Pulse Ox 11/30/16 06:00 86 19 94 L 11/30/16 05:21 78 18 150/78 94 L 11/30/16 05:00 81 17 94 L 11/30/16 04:21 81 21 138/80 93 L 11/30/16 04:00 98.5 F 76 17 94 L Intake and Output (Last 8hrs): Intake & Output 11/29/16 11/30/16 11/30/16 22:59 06:59 14:59 Intake Total 922 672 Output Total 1250 1200 Balance -328 -528 Weight 179 lb 178 lb 12.8 oz Intake: Intake, IV Amount 672 672 Left Antecubital 72 72 Left Forearm 600 600 Oral 250 Output: Urine 1250 1200 Urine, Voided 1250 1200 - Physical Exam Head: Positive for: Atraumatic, Normocephalic Pupils: Positive for: PERRL Extroacular Muscles: Positive for: EOMI Conjunctiva: Positive for: Normal. Negative for: Injected, Icteric Mouth: Positive for: Moist Mucous Membranes, Other (R droop noted) Neck: Positive for: Normal Range of Motion. Negative for: JVD, Lymphadenopathy Respiratory/Chest: Positive for: Clear to Auscultation. Negative for: Accessory Muscle Use, Wheezes, Rales, Rhonchi Cardiovascular: Positive for: Normal S1, S2, Tachycardic. Negative for: Murmurs , Irregular Rhythm Abdomen: Positive for: Normal Bowel Sounds, Other (b/l ecchymosis noted on abdomen- secondary to insulin injections as per patient). Negative for: Tenderness Upper Extremity: Positive for: Other (RUE weakness noted and right hand contraction). Negative for: Edema Lower Extremity: Positive for: Normal Inspection, NORMAL PULSES, Swelling ( slight LLE > RLE), Capillary Refill < 2 s. Negative for: Edema, CALF TENDERNESS , Erythema Neurological: Positive for: GCS=15, Speech Normal, Motor Func Grossly Intact Skin: Positive for: Warm, Dry, Normal Color Psychiatric: Positive for: Alert, Oriented x 3, Normal Insight, Normal Concentration - Medications Active Medications: Active Medications Generic Name Dose Route Start Last Admin Trade Name Freq PRN Reason Stop Dose Admin Acetaminophen 650 mg 11/29/16 21:24 11/30/16 06:53 Tylenol 325mg Tab PO 650 mg Q6 PRN Administration Pain, Mild (1-3) Amlodipine Besylate 10 mg 11/29/16 10:30 11/29/16 11:30 Norvasc PO 10 mg DAILY JIMMY Administration Aspirin 81 mg 11/29/16 10:00 11/29/16 10:14 Aspirin Chewable PO 81 mg DAILY JIMMY Administration Famotidine 20 mg 11/29/16 22:00 11/29/16 22:15 Pepcid IVP 20 mg DAILY JIMMY Administration Sodium Chloride 1,000 mls @ 75 mls/hr 11/29/16 12:15 11/30/16 02:32 Sodium Chloride 0.9% IV 75 mls/hr .[id number] JIMMY Administration Heparin Sodium/Sodium Chloride 25,000 units in 250 mls @ 9 mls/hr 11/29/16 12: 30 11/29/16 12:20 Heparin 89714 Units/250ml 1/2 Normal Saline IV 11/30/16 08:00 9 mls/hr .Q24H PRN Administration PROTOCOL Protocol Per Protocol Insulin Aspart 20 unit 11/29/16 14:00 11/29/16 17:30 Novolog SC 20 unit TID JIMMY Administration Insulin Glargine 20 unit 11/29/16 22:00 11/29/16 22:14 Lantus SC 20 units HS JIMMY Administration Insulin Human Regular 0 unit 11/29/16 16:30 11/29/16 22:15 Novolin R SC Not Given ACHS JIMMY Protocol Lisinopril 20 mg 11/29/16 12:19 Zestril PO DAILY JIMMY Metoprolol Tartrate 12.5 mg 11/29/16 12:19 06/25/17 23:29 Lopressor PO 12.5 mg Q12H JIMMY Administration Nitroglycerin 0.4 mg 11/29/16 10:33 Nitrostat Sl Tab SL Q5M PRN chest pain Rosuvastatin Calcium 40 mg 11/29/16 12:15 11/29/16 12:39 Crestor PO 40 mg HS JIMMY Administration Saccharomyces Boulardii 250 mg 11/29/16 18:00 11/29/16 17:30 Florastor PO 250 mg BID JIMMY Administration - Patient Studies Lab Studies: Lab Studies 11/30/16 11/30/16 11/30/16 Range/Units 02:34 02:29 02:29 WBC 10.3 (4.8-10.8) K/uL RBC 4.20 (3.80-5.20) Mil/uL Hgb 11.4 (11.0-16.0) g/dL Hct 35.5 (34.0-47.0) % MCV 84.5 (81.0-99.0) fL MCH 27.3 (27.0-31.0) pg MCHC 32.3 L (33.0-37.0) g/dL RDW 14.9 H (11.5-14.5) % Plt Count 229 (130-400) K/uL MPV 9.7 (7.2-11.7) fL Neut % (Auto) 41.4 L (50.0-75.0) % Lymph % (Auto) 47.4 H (20.0-40.0) % Teller % (Auto) 8.3 (0.0-10.0) % Eos % (Auto) 2.0 (0.0-4.0) % Baso % (Auto) 0.9 (0.0-2.0) % Neut # 4.2 (1.8-7.0) K/uL Lymph # 4.9 H (1.0-4.3) K/uL Teller # 0.8 (0.0-0.8) K/uL Eos # 0.2 (0.0-0.7) K/uL Baso # 0.1 (0.0-0.2) K/uL PT 10.3 (9.7-12.2) SECONDS INR 0.9 APTT 49 H (21-34) SECONDS Sodium 134 (132-148) mmol/L Potassium 4.2 (3.6-5.2) mmol/L Chloride 99 (98-107) mmol/L Carbon Dioxide 22 (22-30) mmol/L Anion Gap 17 (10-20) BUN 13 (7-17) mg/dL Creatinine 1.0 (0.7-1.2) MG/DL Est GFR ( Amer) > 60 Est GFR (Non-Af Amer) 57 POC Glucose (mg/dL) (65-110) mg/dL Random Glucose 199 H (65-105) mg/dL Calcium 8.3 L (8.6-10.4) mg/dl Phosphorus 3.7 (2.5-4.5) mg/dL Magnesium 1.4 L (1.6-2.3) mg/dL Total Bilirubin 0.3 (0.2-1.3) mg/dL AST 47 H D (14-36) U/L ALT 30 (9-52) U/L Alkaline Phosphatase 64 (38-126) U/L Total Creatine Kinase (30-135) U/L CK-MB (Mass) (0.0-3.38) ng/mL Troponin I 5.6800 H* (0.00-0.120) ng/mL Troponin I, Quant (0.00-0.120) ng/mL Total Protein 6.4 (6.3-8.3) g/dL Albumin 3.4 L (3.5-5.0) g/dL Globulin 3.0 (2.2-3.9) gm/dL Albumin/Globulin Ratio 1.1 (1.0-2.1) Triglycerides (0-149) mg/dL Cholesterol (0-199) mg/dL LDL Cholesterol Direct (0-129) mg/dL HDL Cholesterol (30-70) mg/dL Procalcitonin (0.19-0.49) NG/ML TSH 3rd Generation (0.46-4.68) mIU/L 11/29/16 11/29/16 11/29/16 Range/Units 21:49 19:26 17:18 WBC (4.8-10.8) K/uL RBC (3.80-5.20) Mil/uL Hgb (11.0-16.0) g/dL Hct (34.0-47.0) % MCV (81.0-99.0) fL MCH (27.0-31.0) pg MCHC (33.0-37.0) g/dL RDW (11.5-14.5) % Plt Count (130-400) K/uL MPV (7.2-11.7) fL Neut % (Auto) (50.0-75.0) % Lymph % (Auto) (20.0-40.0) % Teller % (Auto) (0.0-10.0) % Eos % (Auto) (0.0-4.0) % Baso % (Auto) (0.0-2.0) % Neut # (1.8-7.0) K/uL Lymph # (1.0-4.3) K/uL Teller # (0.0-0.8) K/uL Eos # (0.0-0.7) K/uL Baso # (0.0-0.2) K/uL PT (9.7-12.2) SECONDS INR APTT 49 H D (21-34) SECONDS Sodium (132-148) mmol/L Potassium (3.6-5.2) mmol/L Chloride (98-107) mmol/L Carbon Dioxide (22-30) mmol/L Anion Gap (10-20) BUN (7-17) mg/dL Creatinine (0.7-1.2) MG/DL Est GFR ( Amer) Est GFR (Non-Af Amer) POC Glucose (mg/dL) 230 H 273 H (65-110) mg/dL Random Glucose (65-105) mg/dL Calcium (8.6-10.4) mg/dl Phosphorus (2.5-4.5) mg/dL Magnesium (1.6-2.3) mg/dL Total Bilirubin (0.2-1.3) mg/dL AST (14-36) U/L ALT (9-52) U/L Alkaline Phosphatase (38-126) U/L Total Creatine Kinase (30-135) U/L CK-MB (Mass) (0.0-3.38) ng/mL Troponin I (0.00-0.120) ng/mL Troponin I, Quant (0.00-0.120) ng/mL Total Protein (6.3-8.3) g/dL Albumin (3.5-5.0) g/dL Globulin (2.2-3.9) gm/dL Albumin/Globulin Ratio (1.0-2.1) Triglycerides (0-149) mg/dL Cholesterol (0-199) mg/dL LDL Cholesterol Direct (0-129) mg/dL HDL Cholesterol (30-70) mg/dL Procalcitonin (0.19-0.49) NG/ML TSH 3rd Generation (0.46-4.68) mIU/L 11/29/16 11/29/16 11/29/16 Range/Units 15:05 15:05 15:03 WBC 11.1 H (4.8-10.8) K/uL RBC 4.06 (3.80-5.20) Mil/uL Hgb 11.1 (11.0-16.0) g/dL Hct 34.8 (34.0-47.0) % MCV 85.7 (81.0-99.0) fL MCH 27.4 (27.0-31.0) pg MCHC 32.0 L (33.0-37.0) g/dL RDW 15.1 H (11.5-14.5) % Plt Count 228 (130-400) K/uL MPV 9.8 (7.2-11.7) fL Neut % (Auto) 45.8 L (50.0-75.0) % Lymph % (Auto) 42.8 H (20.0-40.0) % Teller % (Auto) 8.8 (0.0-10.0) % Eos % (Auto) 1.3 (0.0-4.0) % Baso % (Auto) 1.3 (0.0-2.0) % Neut # 5.1 (1.8-7.0) K/uL Lymph # 4.7 H (1.0-4.3) K/uL Teller # 1.0 H (0.0-0.8) K/uL Eos # 0.1 (0.0-0.7) K/uL Baso # 0.1 (0.0-0.2) K/uL PT (9.7-12.2) SECONDS INR APTT (21-34) SECONDS Sodium (132-148) mmol/L Potassium (3.6-5.2) mmol/L Chloride (98-107) mmol/L Carbon Dioxide (22-30) mmol/L Anion Gap (10-20) BUN (7-17) mg/dL Creatinine (0.7-1.2) MG/DL Est GFR ( Amer) Est GFR (Non-Af Amer) POC Glucose (mg/dL) (65-110) mg/dL Random Glucose (65-105) mg/dL Calcium (8.6-10.4) mg/dl Phosphorus (2.5-4.5) mg/dL Magnesium (1.6-2.3) mg/dL Total Bilirubin (0.2-1.3) mg/dL AST (14-36) U/L ALT (9-52) U/L Alkaline Phosphatase (38-126) U/L Total Creatine Kinase 503 H (30-135) U/L CK-MB (Mass) 31.7 H (0.0-3.38) ng/mL Troponin I (0.00-0.120) ng/mL Troponin I, Quant 10.2000 H* (0.00-0.120) ng/mL Total Protein (6.3-8.3) g/dL Albumin (3.5-5.0) g/dL Globulin (2.2-3.9) gm/dL Albumin/Globulin Ratio (1.0-2.1) Triglycerides 312 H (0-149) mg/dL Cholesterol 125 (0-199) mg/dL LDL Cholesterol Direct 60 (0-129) mg/dL HDL Cholesterol 37 (30-70) mg/dL Procalcitonin 0.05 L (0.19-0.49) NG/ML TSH 3rd Generation 2.55 (0.46-4.68) mIU/L Laboratory Results - last 24 hr 11/29/16 11/29/16 11/29/16 15:03 15:05 15:05 WBC 11.1 H RBC 4.06 Hgb 11.1 Hct 34.8 MCV 85.7 MCH 27.4 MCHC 32.0 L RDW 15.1 H Plt Count 228 MPV 9.8 Neut % (Auto) 45.8 L Lymph % (Auto) 42.8 H Teller % (Auto) 8.8 Eos % (Auto) 1.3 Baso % (Auto) 1.3 Neut # 5.1 Lymph # 4.7 H Teller # 1.0 H Eos # 0.1 Baso # 0.1 PT INR APTT Sodium Potassium Chloride Carbon Dioxide Anion Gap BUN Creatinine Est GFR ( Amer) Est GFR (Non-Af Amer) POC Glucose (mg/dL) Random Glucose Calcium Phosphorus Magnesium Total Bilirubin AST ALT Alkaline Phosphatase Total Creatine Kinase 503 H CK-MB (Mass) 31.7 H Troponin I Troponin I, Quant 10.2000 H* Total Protein Albumin Globulin Albumin/Globulin Ratio Triglycerides 312 H Cholesterol 125 LDL Cholesterol Direct 60 HDL Cholesterol 37 Procalcitonin 0.05 L TSH 3rd Generation 2.55 11/29/16 11/29/16 11/29/16 17:18 19:26 21:49 WBC RBC Hgb Hct MCV MCH MCHC RDW Plt Count MPV Neut % (Auto) Lymph % (Auto) Teller % (Auto) Eos % (Auto) Baso % (Auto) Neut # Lymph # Teller # Eos # Baso # PT INR APTT 49 H D Sodium Potassium Chloride Carbon Dioxide Anion Gap BUN Creatinine Est GFR ( Amer) Est GFR (Non-Af Amer) POC Glucose (mg/dL) 273 H 230 H Random Glucose Calcium Phosphorus Magnesium Total Bilirubin AST ALT Alkaline Phosphatase Total Creatine Kinase CK-MB (Mass) Troponin I Troponin I, Quant Total Protein Albumin Globulin Albumin/Globulin Ratio Triglycerides Cholesterol LDL Cholesterol Direct HDL Cholesterol Procalcitonin TSH 3rd Generation 11/30/16 11/30/16 11/30/16 02:29 02:29 02:34 WBC 10.3 RBC 4.20 Hgb 11.4 Hct 35.5 MCV 84.5 MCH 27.3 MCHC 32.3 L RDW 14.9 H Plt Count 229 MPV 9.7 Neut % (Auto) 41.4 L Lymph % (Auto) 47.4 H Teller % (Auto) 8.3 Eos % (Auto) 2.0 Baso % (Auto) 0.9 Neut # 4.2 Lymph # 4.9 H Teller # 0.8 Eos # 0.2 Baso # 0.1 PT 10.3 INR 0.9 APTT 49 H Sodium 134 Potassium 4.2 Chloride 99 Carbon Dioxide 22 Anion Gap 17 BUN 13 Creatinine 1.0 Est GFR ( Amer) > 60 Est GFR (Non-Af Amer) 57 POC Glucose (mg/dL) Random Glucose 199 H Calcium 8.3 L Phosphorus 3.7 Magnesium 1.4 L Total Bilirubin 0.3 AST 47 H D ALT 30 Alkaline Phosphatase 64 Total Creatine Kinase CK-MB (Mass) Troponin I 5.6800 H* Troponin I, Quant Total Protein 6.4 Albumin 3.4 L Globulin 3.0 Albumin/Globulin Ratio 1.1 Triglycerides Cholesterol LDL Cholesterol Direct HDL Cholesterol Procalcitonin TSH 3rd Generation Fingerstick Blood Sugar Results: 273 Review of Systems - Constitutional Constitutional: absent: Fever, Chills - EENT Eyes: As Per HPI. absent: Blurred Vision Ears: As Per HPI. absent: Dizziness Nose/Mouth/Throat: As Per HPI. absent: Dysphagia, Sore Throat - Cardiovascular Cardiovascular: As Per HPI. absent: Chest Pain, Dyspnea, Edema, Palpitations - Respiratory Respiratory: As Per HPI. absent: Cough, Dyspnea on Exertion, Chest Congestion - Gastrointestinal Gastrointestinal: As Per HPI. absent: Abdominal Pain, Constipation, Diarrhea, Nausea, Vomiting - Genitourinary Genitourinary: As Per HPI. absent: Dysuria, Hematuria, Pyuria - Musculoskeletal Musculoskeletal: As Par HPI. absent: Back Pain, Numbness, Stiffness, Tingling Additional comments: R hand contraction and decreased strength - Integumentary Integumentary: As Per HPI. absent: Dry Skin Additional comments: bruising b/l on abdomen - Neurological Neurological: As Per HPI. absent: Dizziness, Headaches - Psychiatric Psychiatric: As Per HPI. absent: Anxiety, Depression - Endocrine Endocrine: As Per HPI, Polyuria. absent: Palpitations, Polydipsia, Polyphagia - Hematologic/Lymphatic Hematologic: As Per HPI. 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 Munguia following Cardiovascular -acute NSTEMI -troponin: 0.114 on admission--> 13.5--> 11.3--> 10.2--> 5.68 -patient was on heparin gtt which was discontinued today 11/30 -Associated EKGs show no acute changes -f/u echo -Lipid panel WNL -patient for cardiac cath today 11/30 -Tylenol 650mg po q6 prn mild pain -Norvasc 10mg po daily -Lisinopril 20mg po daily -Lopressor 50mg po q12 -Nitrostat sl 0.4mg prn -Crestor 40mg po hs -ASA 81mg po daily -1/2NS @ 50cc/hr -Cardiology Dr. Ahn following Respiratory -no acute issues -SOB resolved -Patient breathing spontaneously on room air -CXR 11/29 no active disease -CT chest 11/29 negative for pneumonia -ABG 11/29 pO2 73 Bicarb 20.6 pH 7.33 total CO2 21.2 Glucose 337 Lactate 4.4 GI -no acute issues -NPO after breakfast for cardiac cath Endo -HgbA1c 11.2 -Hx of DM2 -RISS Novolin -Novolog 20U sc TID -Lantus 20U sc hs Renal -no acute issues -1/2NS @ 50cc/hr Heme -elevated D dimer 381 -H&H stable -Patient was on heparin gtt for elevated troponin- d/c this AM -f/u venous dopplers -CTA: negative for PE; b/l lower lobe linear scar/atelectasis. Incidental 4mm R upper lobe nodule. ID -no acute issues -WBC 11.1 on 11/29 - likely reactionary afebrile since admission -Florastor 250mg po bid -Chest CT negative for pneumonia -blood culture negative -procalcitonin 0.05 -f/u urine culture MSK -RUE strength decreased compared to LUE- residual from past CVA -no acute issues DVT ppx: SCD c/i until venous dopplers r/o DVT; VTE ppx on hold for cardiac cath GI ppx: Protonix 40mg po daily Code Status: full code Case discussed with Dr Ibeth Lockhart PGY2
[2016-11-30] MEDS: (Novolin R) Insulin Human Regular 100 units/ml vial SC SCH ×4 (08:06→22:51)
[2016-11-30] MEDS: Saccharomyces Boulardi 250 mg Cap PO SCH ×2 (09:44→18:07)
[2016-11-30] MEDS: (Novolog) Insulin Aspart, Recombinant 100 u/ml 10 ml vial SC SCH ×3 (09:47→18:00)
[2016-11-30] MEDS ORDERED: Azithromycin 500 MG in Sodium Chloride 0.9% 250 ML IVPB SCH (10:00)
[2016-11-30] MEDS ORDERED: Pantoprazole 40 mg EC Tab PO SCH (10:00)
[2016-11-30] MEDS ORDERED: Sodium Chloride 0.45% 1,000 ML IV ONE (10:05)
--- NOTE | 2016-11-30 10:05 | CARD ---
APPROVED REPORT EKG Measurement Heart [id number] <Conclusion> Normal sinus rhythm Cannot rule out Anterior infarct, age undetermined Abnormal ECG
--- NOTE | 2016-11-30 10:11 | CARD ---
APPROVED REPORT EKG Measurement Heart [id number] <Conclusion> Poor data quality, interpretation may be adversely affected Sinus tachycardia Cannot rule out Inferior infarct, age undetermined Cannot rule out Anterior infarct, age undetermined Abnormal ECG
[2016-11-30] MEDS: Magnesium Sulfate 1 gm in D5W 1 GM/100 ML BAG IVPB SCH ×2 (10:29→11:35)
[2016-11-30] MEDS: Pantoprazole 40 mg EC Tab PO SCH (10:30)
[2016-11-30] MEDS ORDERED: Midazolam 2 MG/2 ML VIAL ONE (16:23)
[2016-11-30] MEDS ORDERED: Lidocaine 2% Inj (20ml) ONE (16:32)
[2016-11-30] MEDS ORDERED: Iohexol 350mg/ml 100 ML ONE (16:34)
--- NOTE | 2016-11-30 17:12 | CP.PCM.PN ---
Subjective - Date & Time of Evaluation Date of Evaluation: 11/30/16 Time of Evaluation: 17:09 - Subjective Subjective: Patient s/p Cath L Cx 99% stenosis For PCI at [place] tomorrow Start Plavix 75mg po from today Start Metoprolol 12.5 po bid if no contraindications Change Heparin to 5000units SC bid NPO after breakfast tomorrow IV hydration NS 70ml/hr for 36 hours Resume diet for today Bedrest till 7pm tonight Continue ICU monitoring Objective - Vital Signs/Intake and Output Vital Signs (last 24 hours): Temp Pulse Resp BP Pulse Ox 98.5 F 78 14 131/66 100 11/30/16 12:00 11/30/16 15:22 11/30/16 15:22 11/30/16 15:22 11/30/16 15:22 Intake and Output: 11/30/16 11/30/16 06:59 18:59 Intake Total 1258 1163.5 Output Total 2000 850 Balance -742 313.5 - Medications Medications: Current Medications Acetaminophen (Tylenol 325mg Tab) 650 mg PO Q6 PRN PRN Reason: Pain, Mild (1-3) Last Admin: 11/30/16 06:53 Dose: 650 mg Amlodipine Besylate (Norvasc) 10 mg PO DAILY [facility] Last Admin: 11/30/16 09:45 Dose: 10 mg Aspirin (Aspirin Chewable) 81 mg PO DAILY [facility] Last Admin: 11/30/16 09:47 Dose: 81 mg Sodium Chloride (Sodium Chloride 0.45%) 1,000 mls @ 50 mls/hr IV .Q20H ONE Stop: 12/01/16 06:04 Last Admin: 11/30/16 10:31 Dose: 50 mls/hr Insulin Aspart (Novolog) 20 unit SC TID [facility] Last Admin: 11/30/16 14:00 Dose: Not Given Insulin Glargine (Lantus) 20 unit SC HS [facility] Last Admin: 11/29/16 22:14 Dose: 20 units Insulin Human Regular (Novolin R) 0 unit SC ACHS [facility] PRN Reason: Protocol Last Admin: 11/30/16 12:56 Dose: 3 unit Lisinopril (Zestril) 20 mg PO DAILY [facility] Last Admin: 11/30/16 09:45 Dose: 20 mg Metoprolol Tartrate (Lopressor) 50 mg PO Q12 [facility] Last Admin: 11/30/16 10:29 Dose: 50 mg Nitroglycerin (Nitrostat Sl Tab) 0.4 mg SL Q5M PRN PRN Reason: chest pain Pantoprazole Sodium (Protonix Ec Tab) 40 mg PO DAILY [facility] Last Admin: 11/30/16 10:30 Dose: Not Given Rosuvastatin Calcium (Crestor) 40 mg PO HS [facility] Last Admin: 11/29/16 12:39 Dose: 40 mg Saccharomyces Boulardii (Florastor) 250 mg PO BID [facility] Last Admin: 11/30/16 09:44 Dose: 250 mg - Labs Labs: 11/30/16 02:29 11/30/16 02:29 PT 10.3 SECONDS (9.7-12.2) 11/30/16 02:34 INR 0.9 11/30/16 02:34 APTT 49 SECONDS (21-34) H 11/30/16 02:34
--- NOTE | 2016-11-30 17:54 | CARDCATH ---
PROCEDURE DATE: 11/30/2016 PROCEDURES: 1. Left heart catheterization and coronary angiogram. 2. Aortogram. CLINICAL INDICATIONS: 1. Chest pain. 2. Non-ST elevation myocardial infarction. 3. Coronary artery disease. 4. Hypertension. 5. Hyperlipidemia. 6. Diabetes type 2. 7. Obesity. REFERRING PHYSICIAN: Dr. Reshma Carrasco. PERFORMING PHYSICIAN: Dr. Shoaib Ahn. BRIEF CLINICAL HISTORY: The patient is a 56-year-old female with history of diabetes, hypertension a nd hyperlipidemia, admitted to [facility] intensive care unit for acute coronary syndrome. Her peak troponin was 13.5. The patient was treated with appropriate medications including anticoagulati on. Today, patient is brought to cardiac clinical laboratory scientist for coronary angiogram and LV gram. PROCEDURE: After informed consent, patient was prepped and draped in the usual sterile fashion and 2 % lidocaine was given in the right groin for local anesthesia. Using micropuncture technique, 6-Fren ch sheath was introduced into right common femoral artery. FINDINGS: The patient has single coronary artery disease. Right coronary artery, left circumflex and left anterior descending coronary arteries arise from the single left main from the left coronary cu sp. Left main coronary artery is patent. LAD and diagonal branches are patent. Left circumflex has a 90% proximal stenosis, 99% distal stenosis. Right coronary artery is patent. LV angiogram has demonstrated normal LV function with ejection fraction of 65%. No wall motion abnor mality is detected. EDP is 17. No gradient across the aortic valve. Aortogram has confirmed single coronary artery. CONCLUSION: The patient presented with acute coronary syndrome. Cardiac cath has revealed critical left circumflex coronary artery disease. The patient will be transferred to [facility] for cor onary intervention. Shoaib Ahn MD cc: [id number] TT: 11/30/2016 17:54:01 ln
[2016-11-30] MEDS: (Lantus) Insulin Glargine, Recombinant SC SCH (22:48)
[2016-12-01 06:28] LABS: BASO # 0.2 K/uL (0.0-0.2); BASO % 1.5 % (0.0-2.0); EOS # 0.2 K/uL (0.0-0.7); EOS % 1.3 % (0.0-4.0); HEMATOCRIT 39.8 % (34.0-47.0); LYMPH # 4.6 K/uL (1.0-4.3); LYMPH % 37.1 % (20.0-40.0); MEAN CELL VOLUME 85.1 fL (81.0-99.0); MEAN CORPUSCULAR HEMOGLOBIN 27.7 pg (27.0-31.0); MEAN CORPUSCULAR HGB CONC 32.6 g/dL (33.0-37.0); MEAN PLATELET VOLUME 9.3 fL (7.2-11.7); MONO # 0.9 K/uL (0.0-0.8); MONO % 7.1 % (0.0-10.0); NRBC % 0.1 % (0.0-2.0); RED CELL DISTRIBUTION WIDTH 14.9 % (11.5-14.5); WHITE BLOOD COUNT 12.4 K/uL (4.8-10.8)
[2016-12-01 06:33] LABS: CHLORIDE 97 mmol/L (98-107); POTASSIUM 4.5 mmol/L (3.6-5.2); SODIUM 131 mmol/L (132-148)
[2016-12-01 06:35] LABS: AST/SGOT 45 U/L (14-36); BILIRUBIN,TOTAL 0.5 mg/dL (0.2-1.3); CARBON DIOXIDE 22 mmol/L (22-30); GFR AFRICAN-AMERICAN > 60
[2016-12-01 06:36] LABS: ALB/GLOB RATIO 1.1 (1.0-2.1); ALKALINE PHOSPHATASE 74 U/L (38-126); ALT/SGPT 21 U/L (9-52); BLOOD UREA NITROGEN 16 mg/dL (7-17); CALCIUM 9.1 mg/dl (8.6-10.4); GLUCOSE,RANDOM 258 mg/dL (65-105); MAGNESIUM 2.1 mg/dL (1.6-2.3); PHOSPHOROUS 3.9 mg/dL (2.5-4.5); TOTAL PROTEIN 7.5 g/dL (6.3-8.3)
--- NOTE | 2016-12-01 07:19 | CP.CCUPN ---
<Conchita Lockhart - Last Filed: 12/01/16 10:25> CCU Subjective - Physician Review Subjective (Free Text): 12/01/16 10:25 Patient seen and examined at bedside. No acute events overnight as per nursing. Patient s/p cardiac cath yesterday 11/30 that showed L Circumflex 99% stenosis. Patient for PCI at [facility] this afternoon and will be NPO after breakfast. Patient was having some pain at cardiac cath site by right groin yesterday which resolved with tylenol. Patient denied headache, dizziness, chest pain, palpitations, SOB, cough, abd pain, nausea, vomiting, bowel/bladder complaints, pain in her legs b/l. She is eager to go home. CCU Objective - Vital Signs / Intake & Output Vital Signs (Last 4 hours): Vital Signs Temp Pulse Resp BP Pulse Ox 12/01/16 06:46 98 H 14 168/87 H 96 12/01/16 05:58 153/85 H 12/01/16 05:57 94 H 18 96 12/01/16 05:46 96 H 18 12/01/16 05:00 98.2 F 12/01/16 04:46 86 18 160/79 H 94 L Intake and Output (Last 8hrs): Intake & Output 11/30/16 12/01/16 12/01/16 22:59 06:59 14:59 Intake Total 640 400 Output Total 850 900 Balance -210 -500 Weight 178 lb 3 oz Intake: Intake, IV Amount 400 400 Left Forearm 400 400 Oral 240 Output: Urine 850 900 Urine, Voided 850 900 - Physical Exam Head: Positive for: Atraumatic, Normocephalic Pupils: Positive for: PERRL Extroacular Muscles: Positive for: EOMI Conjunctiva: Positive for: Normal. Negative for: Injected, Icteric Mouth: Positive for: Moist Mucous Membranes, Other (R droop noted) Neck: Positive for: Normal Range of Motion. Negative for: JVD, Lymphadenopathy Respiratory/Chest: Positive for: Clear to Auscultation. Negative for: Accessory Muscle Use, Wheezes, Rales, Rhonchi Cardiovascular: Positive for: Regular Rate and Rhythm, Normal S1, S2. Negative for: Murmurs, Irregular Rhythm Abdomen: Positive for: Normal Bowel Sounds, Other (b/l ecchymosis noted on abdomen- secondary to insulin injections as per patient). Negative for: Tenderness Upper Extremity: Positive for: Other (RUE weakness noted and right hand contraction). Negative for: Edema Lower Extremity: Positive for: Normal Inspection, NORMAL PULSES, Swelling ( slight LLE > RLE), Capillary Refill < 2 s, Other (cardiac cath site at top of RLE is c/d/i; no bruit auscultated). Negative for: Edema, CALF TENDERNESS, Erythema Neurological: Positive for: GCS=15, CN II-XII Intact, Speech Normal, Motor Func Grossly Intact Skin: Positive for: Warm, Dry, Normal Color Psychiatric: Positive for: Alert, Oriented x 3, Normal Insight, Normal Concentration - Medications Active Medications: Active Medications Generic Name Dose Route Start Last Admin Trade Name Freq PRN Reason Stop Dose Admin Acetaminophen 650 mg 11/29/16 21:24 11/30/16 22:49 Tylenol 325mg Tab PO 650 mg Q6 PRN Administration Pain, Mild (1-3) Amlodipine Besylate 10 mg 11/29/16 10:30 11/30/16 09:45 Norvasc PO 10 mg DAILY JIMMY Administration Aspirin 81 mg 11/29/16 10:00 11/30/16 09:47 Aspirin Chewable PO 81 mg DAILY JIMMY Administration Insulin Aspart 20 unit 11/29/16 14:00 11/30/16 18:00 Novolog SC Not Given TID JIMMY Insulin Glargine 20 unit 11/29/16 22:00 11/30/16 22:48 Lantus SC 20 units HS JIMMY Administration Insulin Human Regular 0 unit 11/29/16 16:30 11/30/16 22:51 Novolin R SC 2 unit ACHS JIMMY Administration Protocol Lisinopril 20 mg 11/29/16 12:19 11/30/16 09:45 Zestril PO 20 mg DAILY JIMMY Administration Metoprolol Tartrate 50 mg 11/30/16 10:05 11/30/16 22:48 Lopressor PO 50 mg Q12 JIMMY Administration Nitroglycerin 0.4 mg 11/29/16 10:33 Nitrostat Sl Tab SL Q5M PRN chest pain Pantoprazole Sodium 40 mg 11/30/16 10:15 11/30/16 10:30 Protonix Ec Tab PO Not Given DAILY JIMMY Rosuvastatin Calcium 40 mg 11/29/16 12:15 11/30/16 22:48 Crestor PO 40 mg HS JIMMY Administration Saccharomyces Boulardii 250 mg 11/29/16 18:00 11/30/16 18:07 Florastor PO 250 mg BID JIMMY Administration - Patient Studies Lab Studies: Microbiology Studies 11/29/16 Unknown MRSA Culture (Admit) - Final Naris MRSA NOT DETECTED Lab Studies 12/01/16 12/01/16 11/30/16 Range/Units 06:16 06:16 21:06 WBC 12.4 H (4.8-10.8) K/uL RBC 4.67 (3.80-5.20) Mil/uL Hgb 12.9 (11.0-16.0) g/dL Hct 39.8 (34.0-47.0) % MCV 85.1 (81.0-99.0) fL MCH 27.7 (27.0-31.0) pg MCHC 32.6 L (33.0-37.0) g/dL RDW 14.9 H (11.5-14.5) % Plt Count 282 (130-400) K/uL MPV 9.3 (7.2-11.7) fL Neut % (Auto) 53.0 (50.0-75.0) % Lymph % (Auto) 37.1 (20.0-40.0) % Heard % (Auto) 7.1 (0.0-10.0) % Eos % (Auto) 1.3 (0.0-4.0) % Baso % (Auto) 1.5 (0.0-2.0) % Neut # 6.6 (1.8-7.0) K/uL Lymph # 4.6 H (1.0-4.3) K/uL Heard # 0.9 H (0.0-0.8) K/uL Eos # 0.2 (0.0-0.7) K/uL Baso # 0.2 (0.0-0.2) K/uL Sodium 131 L (132-148) mmol/L Potassium 4.5 (3.6-5.2) mmol/L Chloride 97 L (98-107) mmol/L Carbon Dioxide 22 (22-30) mmol/L Anion Gap 18 (10-20) BUN 16 (7-17) mg/dL Creatinine 1.1 (0.7-1.2) MG/DL Est GFR ( Amer) > 60 Est GFR (Non-Af Amer) 51 POC Glucose (mg/dL) 316 H (65-110) mg/dL Random Glucose 258 H (65-105) mg/dL Hemoglobin A1c (4.2-6.5) % Calcium 9.1 (8.6-10.4) mg/dl Phosphorus 3.9 (2.5-4.5) mg/dL Magnesium 2.1 (1.6-2.3) mg/dL Total Bilirubin 0.5 (0.2-1.3) mg/dL AST 45 H (14-36) U/L ALT 21 (9-52) U/L Alkaline Phosphatase 74 (38-126) U/L Total Creatine Kinase 197 H (30-135) U/L CK-MB (Mass) 5.67 H (0.0-3.38) ng/mL Troponin I, Quant 3.2200 H* (0.00-0.120) ng/mL Total Protein 7.5 (6.3-8.3) g/dL Albumin 3.9 (3.5-5.0) g/dL Globulin 3.6 (2.2-3.9) gm/dL Albumin/Globulin Ratio 1.1 (1.0-2.1) 11/30/16 11/30/16 11/30/16 Range/Units 17:38 12:14 07:15 WBC (4.8-10.8) K/uL RBC (3.80-5.20) Mil/uL Hgb (11.0-16.0) g/dL Hct (34.0-47.0) % MCV (81.0-99.0) fL MCH (27.0-31.0) pg MCHC (33.0-37.0) g/dL RDW (11.5-14.5) % Plt Count (130-400) K/uL MPV (7.2-11.7) fL Neut % (Auto) (50.0-75.0) % Lymph % (Auto) (20.0-40.0) % Heard % (Auto) (0.0-10.0) % Eos % (Auto) (0.0-4.0) % Baso % (Auto) (0.0-2.0) % Neut # (1.8-7.0) K/uL Lymph # (1.0-4.3) K/uL Heard # (0.0-0.8) K/uL Eos # (0.0-0.7) K/uL Baso # (0.0-0.2) K/uL Sodium (132-148) mmol/L Potassium (3.6-5.2) mmol/L Chloride (98-107) mmol/L Carbon Dioxide (22-30) mmol/L Anion Gap (10-20) BUN (7-17) mg/dL Creatinine (0.7-1.2) MG/DL Est GFR ( Amer) Est GFR (Non-Af Amer) POC Glucose (mg/dL) 202 H 240 H 174 H (65-110) mg/dL Random Glucose (65-105) mg/dL Hemoglobin A1c (4.2-6.5) % Calcium (8.6-10.4) mg/dl Phosphorus (2.5-4.5) mg/dL Magnesium (1.6-2.3) mg/dL Total Bilirubin (0.2-1.3) mg/dL AST (14-36) U/L ALT (9-52) U/L Alkaline Phosphatase (38-126) U/L Total Creatine Kinase (30-135) U/L CK-MB (Mass) (0.0-3.38) ng/mL Troponin I, Quant (0.00-0.120) ng/mL Total Protein (6.3-8.3) g/dL Albumin (3.5-5.0) g/dL Globulin (2.2-3.9) gm/dL Albumin/Globulin Ratio (1.0-2.1) 11/29/16 Range/Units 15:05 WBC (4.8-10.8) K/uL RBC (3.80-5.20) Mil/uL Hgb (11.0-16.0) g/dL Hct (34.0-47.0) % MCV (81.0-99.0) fL MCH (27.0-31.0) pg MCHC (33.0-37.0) g/dL RDW (11.5-14.5) % Plt Count (130-400) K/uL MPV (7.2-11.7) fL Neut % (Auto) (50.0-75.0) % Lymph % (Auto) (20.0-40.0) % Heard % (Auto) (0.0-10.0) % Eos % (Auto) (0.0-4.0) % Baso % (Auto) (0.0-2.0) % Neut # (1.8-7.0) K/uL Lymph # (1.0-4.3) K/uL Heard # (0.0-0.8) K/uL Eos # (0.0-0.7) K/uL Baso # (0.0-0.2) K/uL Sodium (132-148) mmol/L Potassium (3.6-5.2) mmol/L Chloride (98-107) mmol/L Carbon Dioxide (22-30) mmol/L Anion Gap (10-20) BUN (7-17) mg/dL Creatinine (0.7-1.2) MG/DL Est GFR ( Amer) Est GFR (Non-Af Amer) POC Glucose (mg/dL) (65-110) mg/dL Random Glucose (65-105) mg/dL Hemoglobin A1c 11.2 H (4.2-6.5) % Calcium (8.6-10.4) mg/dl Phosphorus (2.5-4.5) mg/dL Magnesium (1.6-2.3) mg/dL Total Bilirubin (0.2-1.3) mg/dL AST (14-36) U/L ALT (9-52) U/L Alkaline Phosphatase (38-126) U/L Total Creatine Kinase (30-135) U/L CK-MB (Mass) (0.0-3.38) ng/mL Troponin I, Quant (0.00-0.120) ng/mL Total Protein (6.3-8.3) g/dL Albumin (3.5-5.0) g/dL Globulin (2.2-3.9) gm/dL Albumin/Globulin Ratio (1.0-2.1) Laboratory Results - last 24 hr 11/29/16 11/30/1617 15:05 07:15 12:14 WBC RBC Hgb Hct MCV MCH MCHC RDW Plt Count MPV Neut % (Auto) Lymph % (Auto) Heard % (Auto) Eos % (Auto) Baso % (Auto) Neut # Lymph # Heard # Eos # Baso # Sodium Potassium Chloride Carbon Dioxide Anion Gap BUN Creatinine Est GFR ( Amer) Est GFR (Non-Af Amer) POC Glucose (mg/dL) 174 H 240 H Random Glucose Hemoglobin A1c 11.2 H Calcium Phosphorus Magnesium Total Bilirubin AST ALT Alkaline Phosphatase Total Creatine Kinase CK-MB (Mass) Troponin I, Quant Total Protein Albumin Globulin Albumin/Globulin Ratio 11/30/16 11/30/16 12/01/16 17:38 21:06 06:16 WBC 12.4 H RBC 4.67 Hgb 12.9 Hct 39.8 MCV 85.1 MCH 27.7 MCHC 32.6 L RDW 14.9 H Plt Count 282 MPV 9.3 Neut % (Auto) 53.0 Lymph % (Auto) 37.1 Heard % (Auto) 7.1 Eos % (Auto) 1.3 Baso % (Auto) 1.5 Neut # 6.6 Lymph # 4.6 H Heard # 0.9 H Eos # 0.2 Baso # 0.2 Sodium Potassium Chloride Carbon Dioxide Anion Gap BUN Creatinine Est GFR ( Amer) Est GFR (Non-Af Amer) POC Glucose (mg/dL) 202 H 316 H Random Glucose Hemoglobin A1c Calcium Phosphorus Magnesium Total Bilirubin AST ALT Alkaline Phosphatase Total Creatine Kinase CK-MB (Mass) Troponin I, Quant Total Protein Albumin Globulin Albumin/Globulin Ratio 12/01/16 06:16 WBC RBC Hgb Hct MCV MCH MCHC RDW Plt Count MPV Neut % (Auto) Lymph % (Auto) Heard % (Auto) Eos % (Auto) Baso % (Auto) Neut # Lymph # Heard # Eos # Baso # Sodium 131 L Potassium 4.5 Chloride 97 L Carbon Dioxide 22 Anion Gap 18 BUN 16 Creatinine 1.1 Est GFR ( Amer) > 60 Est GFR (Non-Af Amer) 51 POC Glucose (mg/dL) Random Glucose 258 H Hemoglobin A1c Calcium 9.1 Phosphorus 3.9 Magnesium 2.1 Total Bilirubin 0.5 AST 45 H ALT 21 Alkaline Phosphatase 74 Total Creatine Kinase 197 H CK-MB (Mass) 5.67 H Troponin I, Quant 3.2200 H* Total Protein 7.5 Albumin 3.9 Globulin 3.6 Albumin/Globulin Ratio 1.1 Fingerstick Blood Sugar Results: 316 Review of Systems - Constitutional Constitutional: absent: Fever, Chills - EENT Eyes: As Per HPI. absent: Blurred Vision Ears: As Per HPI. absent: Tinnitus, Dizziness Nose/Mouth/Throat: As Per HPI. absent: Dysphagia, Sore Throat - Cardiovascular Cardiovascular: As Per HPI, Edema, Leg Edema. absent: Chest Pain, Chest Pain with Activity, Dyspnea, Dyspnea on Exertion, Palpitations - Respiratory Respiratory: As Per HPI. absent: Cough, Dyspnea, Dyspnea on Exertion, Wheezing - Gastrointestinal Gastrointestinal: As Per HPI. absent: Abdominal Pain, Constipation, Diarrhea, Nausea, Vomiting - Musculoskeletal Musculoskeletal: As Par HPI. absent: Numbness, Tingling - Integumentary Integumentary: As Per HPI. absent: Rash - Neurological Neurological: As Per HPI. absent: Dizziness, Numbness, Tingling, Weakness - Psychiatric Psychiatric: As Per HPI. absent: Anxiety, Depression - Endocrine Endocrine: As Per HPI. absent: Polydipsia, Polyphagia, Polyuria - Hematologic/Lymphatic Hematologic: As Per HPI. 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 Munguia following Cardiovascular -acute NSTEMI -Cardiac cath: L circumflex 99 stenosis -Patient for PCI at [facility] today 12/01 -troponin: 0.114 on admission--> 13.5--> 11.3--> 10.2--> 5.68--> 3.220 -Associated EKGs show no acute changes -f/u echo -Lipid panel WNL -patient for cardiac cath today 11/30 -Tylenol 650mg po q6 prn mild pain -Norvasc 10mg po daily -Lisinopril 20mg po daily -Lopressor 50mg po q12 -Nitrostat sl 0.4mg prn -Crestor 40mg po hs -ASA 81mg po daily -Cardiology Dr. Ahn following Respiratory -no acute issues -SOB resolved -Patient breathing spontaneously on room air -CXR 11/29 no active disease -CT chest 11/29 negative for pneumonia -ABG 11/29 pO2 73 Bicarb 20.6 pH 7.33 total CO2 21.2 Glucose 337 Lactate 4.4 GI -no acute issues -NPO after breakfast for cardiac cath Endo -HgbA1c 11.2 -Hx of DM2 -RISS Novolin -Novolog 20U sc TID -Lantus 20U sc hs Renal -no acute issues -1/2NS @ 50cc/hr Heme -elevated D dimer 381 -H&H stable -Patient was on heparin gtt for elevated troponin- d/c this AM -f/u venous dopplers -CTA: negative for PE; b/l lower lobe linear scar/atelectasis. Incidental 4mm R upper lobe nodule. ID -no acute issues -WBC 12.4 on 11/29 - likely reactionary afebrile since admission -Florastor 250mg po bid -Chest CT negative for pneumonia -blood culture negative -procalcitonin 0.05 -f/u urine culture MSK -RUE strength decreased compared to LUE- residual from past CVA -no acute issues DVT ppx: SCD c/i until venous dopplers r/o DVT; VTE ppx on hold for cardiac cath GI ppx: Protonix 40mg po daily Code Status: full code Case discussed with Dr Woody Lockhart PGY2 <John Mckay - Last Filed: 12/01/16 16:44> CCU Objective - Vital Signs / Intake & Output Vital Signs (Last 4 hours): Vital Signs Pulse Resp BP Pulse Ox 12/01/16 14:00 94 H 22 152/78 H 96 12/01/16 13:00 81 15 156/84 H 95 Intake and Output (Last 8hrs): Intake & Output 12/01/16 12/01/16 12/01/16 06:59 14:59 22:59 Intake Total 400 200 Output Total 900 650 Balance -500 -450 Weight 178 lb 3 oz 180 lb 2 oz Intake: Intake, IV Amount 400 200 Left Forearm 400 200 Output: Urine 900 650 Urine, Voided 900 650 Other: # Voids Urine, Voided 1 - Medications Active Medications: Active Medications Generic Name Dose Route Start Last Admin Trade Name Freq PRN Reason Stop Dose Admin Acetaminophen 650 mg 11/29/16 21:24 11/30/16 22:49 Tylenol 325mg Tab PO 650 mg Q6 PRN Administration Pain, Mild (1-3) Amlodipine Besylate 10 mg 11/29/16 10:30 12/01/16 09:21 Norvasc PO 10 mg DAILY JIMMY Administration Aspirin 81 mg 11/29/16 10:00 12/01/16 09:21 Aspirin Chewable PO 81 mg DAILY JIMMY Administration Insulin Aspart 20 unit 11/29/16 14:00 12/01/16 13:57 Novolog SC Not Given TID JIMMY Insulin Glargine 20 unit 11/29/16 22:00 11/30/16 22:48 Lantus SC 20 units HS JIMMY Administration Insulin Human Regular 0 unit 11/29/16 16:30 12/01/16 11:49 Novolin R SC 6 unit ACHS JIMMY Administration Protocol Lisinopril 20 mg 11/29/16 12:19 12/01/16 09:21 Zestril PO 20 mg DAILY JIMMY Administration Metoprolol Tartrate 50 mg 11/30/16 10:05 12/01/16 09:21 Lopressor PO 50 mg Q12 JIMMY Administration Nitroglycerin 0.4 mg 11/29/16 10:33 Nitrostat Sl Tab SL Q5M PRN chest pain Pantoprazole Sodium 40 mg 11/30/16 10:15 12/01/16 09:21 Protonix Ec Tab PO 40 mg DAILY JIMMY Administration Rosuvastatin Calcium 40 mg 11/29/16 12:15 11/30/16 22:48 Crestor PO 40 mg HS JIMMY Administration Saccharomyces Boulardii 250 mg 11/29/16 18:00 12/01/16 09:21 Florastor PO 250 mg BID JIMMY Administration - Patient Studies Lab Studies: Microbiology Studies 11/29/16 Unknown MRSA Culture (Admit) - Final Naris MRSA NOT DETECTED Lab Studies 12/01/16 12/01/16 12/01/16 Range/Units 13:55 11:15 07:18 WBC (4.8-10.8) K/uL RBC (3.80-5.20) Mil/uL Hgb (11.0-16.0) g/dL Hct (34.0-47.0) % MCV (81.0-99.0) fL MCH (27.0-31.0) pg MCHC (33.0-37.0) g/dL RDW (11.5-14.5) % Plt Count (130-400) K/uL MPV (7.2-11.7) fL Neut % (Auto) (50.0-75.0) % Lymph % (Auto) (20.0-40.0) % Heard % (Auto) (0.0-10.0) % Eos % (Auto) (0.0-4.0) % Baso % (Auto) (0.0-2.0) % Neut # (1.8-7.0) K/uL Lymph # (1.0-4.3) K/uL Heard # (0.0-0.8) K/uL Eos # (0.0-0.7) K/uL Baso # (0.0-0.2) K/uL Sodium (132-148) mmol/L Potassium (3.6-5.2) mmol/L Chloride (98-107) mmol/L Carbon Dioxide (22-30) mmol/L Anion Gap (10-20) BUN (7-17) mg/dL Creatinine (0.7-1.2) MG/DL Est GFR ( Amer) Est GFR (Non-Af Amer) POC Glucose (mg/dL) 158 H 340 H 250 H (65-110) mg/dL Random Glucose (65-105) mg/dL Calcium (8.6-10.4) mg/dl Phosphorus (2.5-4.5) mg/dL Magnesium (1.6-2.3) mg/dL Total Bilirubin (0.2-1.3) mg/dL AST (14-36) U/L ALT (9-52) U/L Alkaline Phosphatase (38-126) U/L Total Creatine Kinase (30-135) U/L CK-MB (Mass) (0.0-3.38) ng/mL Troponin I, Quant (0.00-0.120) ng/mL Total Protein (6.3-8.3) g/dL Albumin (3.5-5.0) g/dL Globulin (2.2-3.9) gm/dL Albumin/Globulin Ratio (1.0-2.1) 12/01/16 12/01/16 11/30/16 Range/Units 06:16 06:16 21:06 WBC 12.4 H (4.8-10.8) K/uL RBC 4.67 (3.80-5.20) Mil/uL Hgb 12.9 (11.0-16.0) g/dL Hct 39.8 (34.0-47.0) % MCV 85.1 (81.0-99.0) fL MCH 27.7 (27.0-31.0) pg MCHC 32.6 L (33.0-37.0) g/dL RDW 14.9 H (11.5-14.5) % Plt Count 282 (130-400) K/uL MPV 9.3 (7.2-11.7) fL Neut % (Auto) 53.0 (50.0-75.0) % Lymph % (Auto) 37.1 (20.0-40.0) % Heard % (Auto) 7.1 (0.0-10.0) % Eos % (Auto) 1.3 (0.0-4.0) % Baso % (Auto) 1.5 (0.0-2.0) % Neut # 6.6 (1.8-7.0) K/uL Lymph # 4.6 H (1.0-4.3) K/uL Heard # 0.9 H (0.0-0.8) K/uL Eos # 0.2 (0.0-0.7) K/uL Baso # 0.2 (0.0-0.2) K/uL Sodium 131 L (132-148) mmol/L Potassium 4.5 (3.6-5.2) mmol/L Chloride 97 L (98-107) mmol/L Carbon Dioxide 22 (22-30) mmol/L Anion Gap 18 (10-20) BUN 16 (7-17) mg/dL Creatinine 1.1 (0.7-1.2) MG/DL Est GFR ( Amer) > 60 Est GFR (Non-Af Amer) 51 POC Glucose (mg/dL) 316 H (65-110) mg/dL Random Glucose 258 H (65-105) mg/dL Calcium 9.1 (8.6-10.4) mg/dl Phosphorus 3.9 (2.5-4.5) mg/dL Magnesium 2.1 (1.6-2.3) mg/dL Total Bilirubin 0.5 (0.2-1.3) mg/dL AST 45 H (14-36) U/L ALT 21 (9-52) U/L Alkaline Phosphatase 74 (38-126) U/L Total Creatine Kinase 197 H (30-135) U/L CK-MB (Mass) 5.67 H (0.0-3.38) ng/mL Troponin I, Quant 3.2200 H* (0.00-0.120) ng/mL Total Protein 7.5 (6.3-8.3) g/dL Albumin 3.9 (3.5-5.0) g/dL Globulin 3.6 (2.2-3.9) gm/dL Albumin/Globulin Ratio 1.1 (1.0-2.1) 11/30/16 Range/Units 17:38 WBC (4.8-10.8) K/uL RBC (3.80-5.20) Mil/uL Hgb (11.0-16.0) g/dL Hct (34.0-47.0) % MCV (81.0-99.0) fL MCH (27.0-31.0) pg MCHC (33.0-37.0) g/dL RDW (11.5-14.5) % Plt Count (130-400) K/uL MPV (7.2-11.7) fL Neut % (Auto) (50.0-75.0) % Lymph % (Auto) (20.0-40.0) % Heard % (Auto) (0.0-10.0) % Eos % (Auto) (0.0-4.0) % Baso % (Auto) (0.0-2.0) % Neut # (1.8-7.0) K/uL Lymph # (1.0-4.3) K/uL Heard # (0.0-0.8) K/uL Eos # (0.0-0.7) K/uL Baso # (0.0-0.2) K/uL Sodium (132-148) mmol/L Potassium (3.6-5.2) mmol/L Chloride (98-107) mmol/L Carbon Dioxide (22-30) mmol/L Anion Gap (10-20) BUN (7-17) mg/dL Creatinine (0.7-1.2) MG/DL Est GFR ( Amer) Est GFR (Non-Af Amer) POC Glucose (mg/dL) 202 H (65-110) mg/dL Random Glucose (65-105) mg/dL Calcium (8.6-10.4) mg/dl Phosphorus (2.5-4.5) mg/dL Magnesium (1.6-2.3) mg/dL Total Bilirubin (0.2-1.3) mg/dL AST (14-36) U/L ALT (9-52) U/L Alkaline Phosphatase (38-126) U/L Total Creatine Kinase (30-135) U/L CK-MB (Mass) (0.0-3.38) ng/mL Troponin I, Quant (0.00-0.120) ng/mL Total Protein (6.3-8.3) g/dL Albumin (3.5-5.0) g/dL Globulin (2.2-3.9) gm/dL Albumin/Globulin Ratio (1.0-2.1) Laboratory Results - last 24 hr 11/30/16 11/30/16 12/01/16 17:38 21:06 06:16 WBC 12.4 H RBC 4.67 Hgb 12.9 Hct 39.8 MCV 85.1 MCH 27.7 MCHC 32.6 L RDW 14.9 H Plt Count 282 MPV 9.3 Neut % (Auto) 53.0 Lymph % (Auto) 37.1 Heard % (Auto) 7.1 Eos % (Auto) 1.3 Baso % (Auto) 1.5 Neut # 6.6 Lymph # 4.6 H Heard # 0.9 H Eos # 0.2 Baso # 0.2 Sodium Potassium Chloride Carbon Dioxide Anion Gap BUN Creatinine Est GFR ( Amer) Est GFR (Non-Af Amer) POC Glucose (mg/dL) 202 H 316 H Random Glucose Calcium Phosphorus Magnesium Total Bilirubin AST ALT Alkaline Phosphatase Total Creatine Kinase CK-MB (Mass) Troponin I, Quant Total Protein Albumin Globulin Albumin/Globulin Ratio 12/01/16 12/01/16 12/01/16 06:16 07:18 11:15 WBC RBC Hgb Hct MCV MCH MCHC RDW Plt Count MPV Neut % (Auto) Lymph % (Auto) Heard % (Auto) Eos % (Auto) Baso % (Auto) Neut # Lymph # Heard # Eos # Baso # Sodium 131 L Potassium 4.5 Chloride 97 L Carbon Dioxide 22 Anion Gap 18 BUN 16 Creatinine 1.1 Est GFR ( Amer) > 60 Est GFR (Non-Af Amer) 51 POC Glucose (mg/dL) 250 H 340 H Random Glucose 258 H Calcium 9.1 Phosphorus 3.9 Magnesium 2.1 Total Bilirubin 0.5 AST 45 H ALT 21 Alkaline Phosphatase 74 Total Creatine Kinase 197 H CK-MB (Mass) 5.67 H Troponin I, Quant 3.2200 H* Total Protein 7.5 Albumin 3.9 Globulin 3.6 Albumin/Globulin Ratio 1.1 12/01/16 13:55 WBC RBC Hgb Hct MCV MCH MCHC RDW Plt Count MPV Neut % (Auto) Lymph % (Auto) Heard % (Auto) Eos % (Auto) Baso % (Auto) Neut # Lymph # Heard # Eos # Baso # Sodium Potassium Chloride Carbon Dioxide Anion Gap BUN Creatinine Est GFR ( Amer) Est GFR (Non-Af Amer) POC Glucose (mg/dL) 158 H Random Glucose Calcium Phosphorus Magnesium Total Bilirubin AST ALT Alkaline Phosphatase Total Creatine Kinase CK-MB (Mass) Troponin I, Quant Total Protein Albumin Globulin Albumin/Globulin Ratio Critical Care Progress Note - Nutrition Nutrition: Nutrition Category Date Time Status NPO Diet [DIET] Diets 12/01/16 Lunch Active Attending/Attestation - Attestation I have personally seen and examined this patient.: Yes I have fully participated in the care of the patient.: Yes I have reviewed all pertinent clinical information: Yes Notes (Text): 12/01/16 16:44 [facility]30 that showed L Circumflex 99% stenosis. Patient for PCI at [place]
[2016-12-01] MEDS: (Novolin R) Insulin Human Regular 100 units/ml vial SC SCH ×4 (07:28→21:10)
[2016-12-01] MEDS: (Novolog) Insulin Aspart, Recombinant 100 u/ml 10 ml vial SC SCH ×3 (09:21→19:19)
[2016-12-01] MEDS: Saccharomyces Boulardi 250 mg Cap PO SCH ×2 (09:21→21:10)
[2016-12-01] MEDS: Pantoprazole 40 mg EC Tab PO SCH (09:21)
--- NOTE | 2016-12-01 11:20 | CARD ---
APPROVED REPORT EXAM: Two-dimensional and M-mode echocardiogram with Doppler and color Doppler. Other Information Quality : GoodRhythm : NSR INDICATION CVA/TIA Chest Pain Non STEMI RISK FACTORS Hypertension Hyperlipidemia Diabetes M-Mode DIMENSIONS RVDd2.40 (2.1-3.2cm)Left Atrium (MM)3.72 (2.5-4.0cm) IVSd0.77 (0.7-1.1cm)Aortic Root2.62 (2.2-3.7cm) LVDd5.05 (4.0-5.6cm)Aortic Cusp Exc.1.44 (1.5-2.0cm) PWd0.92 (0.7-1.1cm)FS (%) 41 % LVDs2.99 (2.0-3.8cm)LVEF (%)71 (>50%) Mitral Valve MV E Hbsqjrke16.2cm/sMV A Aokszfwl58.0cm/sE/A ratio1.1 TDI E/Lateral E'0.0E/Medial E'0.0 Tricuspid Valve TR Peak [id number]/sTR Peak Gr.[id number] LEFT VENTRICLE The left ventricle is normal size. There is normal left ventricular wall thickness. The left ventricular function is normal. The left ventricular ejection fraction is within the normal range. No regional wall motion abnormalities noted. The left ventricular diastolic function is normal. No left ventricle thrombus noted on this study. There is no ventricular septal defect visualized. There is no left ventricular aneurysm. There is no mass noted in the left ventricle. RIGHT VENTRICLE The right ventricle is normal size. There is normal right ventricular wall thickness. The right ventricular systolic function is normal. ATRIA The left atrium size is normal. The right atrium size is normal. The interatrial septum is intact with no evidence for an atrial septal defect. AORTIC VALVE The aortic valve is moderately sclerotic. No aortic regurgitation is present. There is no aortic valvular stenosis. There is no aortic valvular vegetation. MITRAL VALVE The mitral valve is normal in structure and function. There is no evidence of mitral valve prolapse. There is no mitral valve stenosis. Mitral regurgitation is mild. TRICUSPID VALVE The tricuspid valve is normal in structure and function. There is mild tricuspid regurgitation. Right ventricular systolic pressure is estimated at less than 30 mmHg. There is no tricuspid valve prolapse or vegetation. There is no tricuspid valve stenosis. PULMONIC VALVE The pulmonary valve is normal in structure and function. There is no pulmonic valvular regurgitation. There is no pulmonic valvular stenosis. GREAT VESSELS The aortic root is normal in size. The ascending aorta is normal in size. The pulmonary artery is normal. The IVC is normal in size and collapses >50% with inspiration. PERICARDIAL EFFUSION The pericardium appears normal. There is no pleural effusion. <Conclusion> The left ventricular function is normal. The left ventricular ejection fraction is within the normal range. No regional wall motion abnormalities noted. Mitral regurgitation is mild.
--- NOTE | 2016-12-01 12:51 | CARD ---
APPROVED REPORT EKG Measurement Heart [id number] <Conclusion> Normal sinus rhythm Low voltage QRS Borderline ECG
--- NOTE | 2016-12-01 13:19 | VASCLAB ---
PROCEDURE: Lower Extremity Venous Duplex Exam. HISTORY: Edema PRIORS: None. TECHNIQUE: Bilateral common femoral, femoral, popliteal and posterior tibial, peroneal and great saphenous veins were evaluated. Flow was assessed with color Doppler, compressibility, assessment of phasic flow and augmentation response. Report prepared by CRISTIANE Wallace FINDINGS: RIGHT: 1. Common Femoral Vein: 1.1. Compressibility - Fully compressible: Thrombus - None : Flow - Phasic: Augmentation -Normal: Reflux - None. 2. Femoral Vein: 2.1. Compressibility - Fully compressible: Thrombus - None : Flow - Phasic: Augmentation -Normal: Reflux - None. 3. Popliteal Vein: 3.1. Compressibility - Fully compressible: Thrombus - None : Flow - Phasic: Augmentation -Normal: Reflux - None. 4. Posterior Tibial Vein: 4.1. Compressibility - Fully compressible: Thrombus - None: Flow - Phasic: Augmentation -Normal: Reflux - None. 5. Peroneal Vein: 5.1. Compressibility - Fully compressible: Thrombus - None: Flow - Phasic: Augmentation -Normal: Reflux - None. 6. Great Saphenous Vein: 6.1. Compressibility - Fully compressible: Thrombus - None: Flow - Phasic: Augmentation - Normal: Reflux - None. LEFT: 1. Common Femoral Vein: 1.1. Compressibility - Fully compressible: Thrombus - None: Flow - Phasic: Augmentation -Normal: Reflux - None. 2. Femoral Vein: 2.1. Compressibility - Fully compressible: Thrombus - None: Flow - Phasic: Augmentation -Normal: Reflux - None. 3. Popliteal Vein: 3.1. Compressibility - Fully compressible: Thrombus - None : Flow - Phasic: Augmentation -Normal: Reflux - None. 4. Posterior Tibial Vein: 4.1. Compressibility - Fully compressible: Thrombus - None: Flow - Phasic: Augmentation -Normal: Reflux - None. 5. Peroneal Vein: 5.1. Compressibility - Fully compressible: Thrombus - None: Flow - Phasic: Augmentation -Normal: Reflux - None. 6. Great Saphenous Vein: 6.1. Compressibility - Fully compressible: Thrombus - None: Flow - Phasic: Augmentation - Normal: Reflux - None. OTHER FINDINGS: Right: None significant. Left: None significant. IMPRESSION: Right: No evidence of deep or superficial vein thrombosis of the right lower extremity. Normal valve function noted of the right side. Left: No evidence of deep or superficial vein thrombosis of the left lower extremity. Normal valve function noted of the left side.
--- NOTE | 2016-12-01 17:24 | CP.PCM.PN ---
Subjective - Date & Time of Evaluation Date of Evaluation: 12/01/16 Time of Evaluation: 17:24 - Subjective Subjective: patient not seen at [facility] for Cath Objective - Vital Signs/Intake and Output Vital Signs (last 24 hours): Temp Pulse Resp BP Pulse Ox 98.8 F 94 H 22 152/78 H 96 12/01/16 12:00 12/01/16 14:00 12/01/16 14:00 12/01/16 14:00 12/01/16 14:00 Intake and Output: 12/01/16 12/01/16 06:59 18:59 Intake Total 600 200 Output Total 1350 650 Balance -750 -450 - Medications Medications: Current Medications Acetaminophen (Tylenol 325mg Tab) 650 mg PO Q6 PRN PRN Reason: Pain, Mild (1-3) Last Admin: 11/30/16 22:49 Dose: 650 mg Amlodipine Besylate (Norvasc) 10 mg PO DAILY [facility] Last Admin: 12/01/16 09:21 Dose: 10 mg Aspirin (Aspirin Chewable) 81 mg PO DAILY [facility] Last Admin: 12/01/16 09:21 Dose: 81 mg Insulin Aspart (Novolog) 20 unit SC TID [facility] Last Admin: 12/01/16 13:57 Dose: Not Given Insulin Glargine (Lantus) 20 unit SC [facility] Last Admin: 11/30/16 22:48 Dose: 20 units Insulin Human Regular (Novolin R) 0 unit SC ACHS [facility] PRN Reason: Protocol Last Admin: 12/01/16 11:49 Dose: 6 unit Lisinopril (Zestril) 20 mg PO DAILY [facility] Last Admin: 12/01/16 09:21 Dose: 20 mg Metoprolol Tartrate (Lopressor) 50 mg PO Q12 [facility] Last Admin: 12/01/16 09:21 Dose: 50 mg Nitroglycerin (Nitrostat Sl Tab) 0.4 mg SL Q5M PRN PRN Reason: chest pain Pantoprazole Sodium (Protonix Ec Tab) 40 mg PO DAILY [facility] Last Admin: 12/01/16 09:21 Dose: 40 mg Rosuvastatin Calcium (Crestor) 40 mg PO HS [facility] Last Admin: 11/30/16 22:48 Dose: 40 mg Saccharomyces Boulardii (Florastor) 250 mg PO BID [facility] Last Admin: 12/01/16 09:21 Dose: 250 mg - Labs Labs: 12/01/16 06:16 12/01/16 06:16 PT 10.3 SECONDS (9.7-12.2) 11/30/16 02:34 INR 0.9 11/30/16 02:34 APTT 49 SECONDS (21-34) H 11/30/16 02:34 Assessment and Plan - Assessment and Plan (Free Text) Assessment: 56F PMHx insulin dependent DM, diverticulosis, HTN, CVA 2000 with right sided weakness and HLD presented with chest pain Plan: Neuro -Hx of CVA 2000 -CT head: no acute infarct or intracranila hemmorhage; old L basal ganglia/ coronal radiata infarct; small old R frontoparietal infarct -AO x 3 -residual R sided weakness and facial droop from old CVA- no acute issues -Lipid panel WNL -spastic hemiparesis as per neuro which could benefit from botulinum toxin over right arm- cleared for cardiac cath -Neurology Dr. Munguia following Cardiovascular -acute NSTEMI -Cardiac cath: L circumflex 99 stenosis -Patient for PCI at [facility] today 12/01 -troponin: 0.114 on admission--> 13.5--> 11.3--> 10.2--> 5.68--> 3.220 -Associated EKGs show no acute changes -f/u echo -Lipid panel WNL -patient for cardiac cath today 11/30 -Tylenol 650mg po q6 prn mild pain -Norvasc 10mg po daily -Lisinopril 20mg po daily -Lopressor 50mg po q12 -Nitrostat sl 0.4mg prn -Crestor 40mg po hs -ASA 81mg po daily -Cardiology Dr. Ahn following Respiratory -no acute issues -SOB resolved -Patient breathing spontaneously on room air -CXR 11/29 no active disease -CT chest 11/29 negative for pneumonia -ABG 11/29 pO2 73 Bicarb 20.6 pH 7.33 total CO2 21.2 Glucose 337 Lactate 4.4 GI -no acute issues -NPO after breakfast for cardiac cath Endo -HgbA1c 11.2 -Hx of DM2 -RISS Novolin -Novolog 20U sc TID -Lantus 20U sc hs Renal -no acute issues -1/2NS @ 50cc/hr Heme -elevated D dimer 381 -H&H stable -Patient was on heparin gtt for elevated troponin- d/c this AM -f/u venous dopplers -CTA: negative for PE; b/l lower lobe linear scar/atelectasis. Incidental 4mm R upper lobe nodule. ID -no acute issues -WBC 12.4 on 11/29 - likely reactionary afebrile since admission -Florastor 250mg po bid -Chest CT negative for pneumonia -blood culture negative -procalcitonin 0.05 -f/u urine culture MSK -RUE strength decreased compared to LUE- residual from past CVA -no acute issues DVT ppx: SCD c/i until venous dopplers r/o DVT; VTE ppx on hold for cardiac cath GI ppx: Protonix 40mg po daily Code Status: full code
--- NOTE | 2016-12-01 17:26 | CP.PCM.PN ---
Subjective - Date & Time of Evaluation Date of Evaluation: 12/01/16 Time of Evaluation: 17:24 - Subjective Subjective: Patient s/p successful intervention of L Cx with two drug eluting stents Plavix 75 daily for 1 year ASA 81, Statins and B blockers for life Ambulate after 9pm tonight NS 70cc/Hr for 24 hours Check labs in am Objective - Vital Signs/Intake and Output Vital Signs (last 24 hours): Temp Pulse Resp BP Pulse Ox 98.8 F 94 H 22 152/78 H 96 12/01/16 12:00 12/01/16 14:00 12/01/16 14:00 12/01/16 14:00 12/01/16 14:00 Intake and Output: 12/01/16 12/01/16 06:59 18:59 Intake Total 600 200 Output Total 1350 650 Balance -750 -450 - Medications Medications: Current Medications Acetaminophen (Tylenol 325mg Tab) 650 mg PO Q6 PRN PRN Reason: Pain, Mild (1-3) Last Admin: 11/30/16 22:49 Dose: 650 mg Amlodipine Besylate (Norvasc) 10 mg PO DAILY [facility] Last Admin: 12/01/16 09:21 Dose: 10 mg Aspirin (Aspirin Chewable) 81 mg PO DAILY [facility] Last Admin: 12/01/16 09:21 Dose: 81 mg Insulin Aspart (Novolog) 20 unit SC TID [facility] Last Admin: 12/01/16 13:57 Dose: Not Given Insulin Glargine (Lantus) 20 unit SC HS [facility] Last Admin: 11/30/16 22:48 Dose: 20 units Insulin Human Regular (Novolin R) 0 unit SC ACHS [facility] PRN Reason: Protocol Last Admin: 12/01/16 11:49 Dose: 6 unit Lisinopril (Zestril) 20 mg PO DAILY [facility] Last Admin: 12/01/16 09:21 Dose: 20 mg Metoprolol Tartrate (Lopressor) 50 mg PO Q12 [facility] Last Admin: 12/01/16 09:21 Dose: 50 mg Nitroglycerin (Nitrostat Sl Tab) 0.4 mg SL Q5M PRN PRN Reason: chest pain Pantoprazole Sodium (Protonix Ec Tab) 40 mg PO DAILY [facility] Last Admin: 12/01/16 09:21 Dose: 40 mg Rosuvastatin Calcium (Crestor) 40 mg PO HS [facility] Last Admin: 11/30/16 22:48 Dose: 40 mg Saccharomyces Boulardii (Florastor) 250 mg PO BID [facility] Last Admin: 12/01/16 09:21 Dose: 250 mg - Labs Labs: 12/01/16 06:16 12/01/16 06:16 PT 10.3 SECONDS (9.7-12.2) 11/30/16 02:34 INR 0.9 11/30/16 02:34 APTT 49 SECONDS (21-34) H 11/30/16 02:34
[2016-12-01] MEDS: Sodium Chloride 0.9% 1,000 ML IV SCH (21:00)
[2016-12-01] MEDS: (Lantus) Insulin Glargine, Recombinant SC SCH (21:10)
[2016-12-02 06:21] LABS: CHLORIDE 99 mmol/L (98-107); POTASSIUM 4.7 mmol/L (3.6-5.2); SODIUM 130 mmol/L (132-148)
[2016-12-02 06:23] LABS: ALKALINE PHOSPHATASE 63 U/L (38-126); ALT/SGPT 19 U/L (9-52); AST/SGOT 39 U/L (14-36); BILIRUBIN,TOTAL 0.5 mg/dL (0.2-1.3); BLOOD UREA NITROGEN 17 mg/dL (7-17); CARBON DIOXIDE 23 mmol/L (22-30); GFR AFRICAN-AMERICAN > 60; GLUCOSE,RANDOM 287 mg/dL (65-105); TOTAL PROTEIN 6.8 g/dL (6.3-8.3)
[2016-12-02 06:24] LABS: CALCIUM 8.7 mg/dl (8.6-10.4); HEMATOCRIT 37.8 % (34.0-47.0); MAGNESIUM 1.9 mg/dL (1.6-2.3); MEAN CELL VOLUME 84.4 fL (81.0-99.0); MEAN CORPUSCULAR HEMOGLOBIN 27.8 pg (27.0-31.0); MEAN PLATELET VOLUME 9.4 fL (7.2-11.7); RED CELL DISTRIBUTION WIDTH 14.8 % (11.5-14.5); WHITE BLOOD COUNT 10.7 K/uL (4.8-10.8)
--- NOTE | 2016-12-02 07:36 | CP.CCUPN ---
<Conchita Lockhart - Last Filed: 12/02/16 11:24> CCU Subjective - Physician Review Subjective (Free Text): 12/02/16 11:24 Patient seen and examined at bedside. No acute events overnight as per nursing. Patient s/p intervention of L Cx with 2 drug eluting stents yesterday 12/01 and cardiac cath 11/30 showed L Circumflex 99% stenosis. Patient had no acute complaints and has been encouraged to ambulate. Stable for transfer to [facility]. CCU Objective - Vital Signs / Intake & Output Vital Signs (Last 4 hours): Vital Signs Temp Pulse Resp BP Pulse Ox 12/02/16 07:00 92 H 20 150/82 93 L 12/02/16 06:00 91 H 17 142/73 97 12/02/16 05:01 148/73 12/02/16 05:00 99 H 18 96 12/02/16 04:00 98.3 F 88 19 141/76 95 Intake and Output (Last 8hrs): Intake & Output 12/01/16 12/02/16 12/02/16 22:59 06:59 14:59 Intake Total 500 680 70 Output Total 200 1200 Balance 300 -520 70 Intake: Intake, IV Amount 140 560 70 Left Forearm 140 560 70 Oral 360 120 Output: Urine 200 1200 Urine, Voided 200 1200 Other: # Voids Urine, Voided 1 1 - Physical Exam Head: Positive for: Atraumatic, Normocephalic Pupils: Positive for: PERRL Extroacular Muscles: Positive for: EOMI Conjunctiva: Positive for: Normal. Negative for: Injected, Icteric Mouth: Positive for: Moist Mucous Membranes, Other (R droop noted) Neck: Positive for: Normal Range of Motion. Negative for: JVD, Lymphadenopathy Respiratory/Chest: Positive for: Clear to Auscultation. Negative for: Accessory Muscle Use, Wheezes, Rales, Rhonchi Cardiovascular: Positive for: Regular Rate and Rhythm, Normal S1, S2. Negative for: Murmurs, Irregular Rhythm Abdomen: Positive for: Normal Bowel Sounds, Other (b/l ecchymosis noted on abdomen- secondary to insulin injections as per patient). Negative for: Tenderness Upper Extremity: Positive for: Other (RUE weakness noted and right hand contraction). Negative for: Edema Lower Extremity: Positive for: Normal Inspection, NORMAL PULSES, Swelling ( slight LLE > RLE), Capillary Refill < 2 s, Other (cardiac cath site at top of RLE is c/d/i; no bruit auscultated). Negative for: Edema, CALF TENDERNESS, Erythema Neurological: Positive for: GCS=15, CN II-XII Intact, Speech Normal, Motor Func Grossly Intact Skin: Positive for: Warm, Dry, Normal Color Psychiatric: Positive for: Alert, Oriented x 3, Normal Insight, Normal Concentration - Medications Active Medications: Active Medications Generic Name Dose Route Start Last Admin Trade Name Freq PRN Reason Stop Dose Admin Acetaminophen 650 mg 11/29/16 21:24 12/02/16 00:18 Tylenol 325mg Tab PO 650 mg Q6 PRN Administration Pain, Mild (1-3) Amlodipine Besylate 10 mg 11/29/16 10:30 12/01/16 09:21 Norvasc PO 10 mg DAILY JIMMY Administration Aspirin 81 mg 11/29/16 10:00 12/01/16 09:21 Aspirin Chewable PO 81 mg DAILY JIMMY Administration Clopidogrel Bisulfate 75 mg 12/02/16 10:00 Plavix PO DAILY JIMMY Famotidine 20 mg 12/02/16 10:00 Pepcid PO DAILY JIMMY Sodium Chloride 1,000 mls @ 70 mls/hr 12/01/16 17:30 12/01/16 21:00 Sodium Chloride 0.9% IV 12/02/16 23:59 70 mls/hr .[id number] JIMMY Administration Insulin Aspart 20 unit 11/29/16 14:00 12/01/16 19:19 Novolog SC Not Given TID JIMMY Insulin Glargine 20 unit 11/29/16 22:00 12/01/16 21:10 Lantus SC 20 units HS JIMMY Administration Insulin Human Regular 0 unit 11/29/16 16:30 12/01/16 21:10 Novolin R SC Not Given ACHS [facility] Protocol Lisinopril 20 mg 11/29/16 12:19 12/01/16 09:21 Zestril PO 20 mg DAILY JIMMY Administration Metoprolol Tartrate 50 mg 11/30/16 10:05 12/01/16 21:10 Lopressor PO 50 mg Q12 JIMMY Administration Rosuvastatin Calcium 40 mg 11/29/16 12:15 12/01/16 21:10 Crestor PO 40 mg HS JIMMY Administration Saccharomyces Boulardii 250 mg 11/29/16 18:00 12/01/16 21:10 Florastor PO 250 mg BID JIMMY Administration - Patient Studies Lab Studies: Lab Studies 12/02/16 12/02/16 12/02/16 Range/Units 07:16 06:03 06:03 WBC 10.7 (4.8-10.8) K/uL RBC 4.48 (3.80-5.20) Mil/uL Hgb 12.5 (11.0-16.0) g/dL Hct 37.8 (34.0-47.0) % MCV 84.4 (81.0-99.0) fL MCH 27.8 (27.0-31.0) pg MCHC 33.0 (33.0-37.0) g/dL RDW 14.8 H (11.5-14.5) % Plt Count 263 (130-400) K/uL MPV 9.4 (7.2-11.7) fL Sodium 130 L (132-148) mmol/L Potassium 4.7 (3.6-5.2) mmol/L Chloride 99 (98-107) mmol/L Carbon Dioxide 23 (22-30) mmol/L Anion Gap 13 (10-20) BUN 17 (7-17) mg/dL Creatinine 1.1 (0.7-1.2) MG/DL Est GFR ( Amer) > 60 Est GFR (Non-Af Amer) 51 POC Glucose (mg/dL) 233 H (65-110) mg/dL Random Glucose 287 H (65-105) mg/dL Calcium 8.7 (8.6-10.4) mg/dl Phosphorus 4.0 (2.5-4.5) mg/dL Magnesium 1.9 (1.6-2.3) mg/dL Total Bilirubin 0.5 (0.2-1.3) mg/dL AST 39 H (14-36) U/L ALT 19 (9-52) U/L Alkaline Phosphatase 63 (38-126) U/L Total Protein 6.8 (6.3-8.3) g/dL Albumin 3.5 (3.5-5.0) g/dL Globulin 3.3 (2.2-3.9) gm/dL Albumin/Globulin Ratio 1.0 (1.0-2.1) 12/01/16 12/01/16 12/01/16 Range/Units 21:09 13:55 11:15 WBC (4.8-10.8) K/uL RBC (3.80-5.20) Mil/uL Hgb (11.0-16.0) g/dL Hct (34.0-47.0) % MCV (81.0-99.0) fL MCH (27.0-31.0) pg MCHC (33.0-37.0) g/dL RDW (11.5-14.5) % Plt Count (130-400) K/uL MPV (7.2-11.7) fL Sodium (132-148) mmol/L Potassium (3.6-5.2) mmol/L Chloride (98-107) mmol/L Carbon Dioxide (22-30) mmol/L Anion Gap (10-20) BUN (7-17) mg/dL Creatinine (0.7-1.2) MG/DL Est GFR ( Amer) Est GFR (Non-Af Amer) POC Glucose (mg/dL) 275 H 158 H 340 H (65-110) mg/dL Random Glucose (65-105) mg/dL Calcium (8.6-10.4) mg/dl Phosphorus (2.5-4.5) mg/dL Magnesium (1.6-2.3) mg/dL Total Bilirubin (0.2-1.3) mg/dL AST (14-36) U/L ALT (9-52) U/L Alkaline Phosphatase (38-126) U/L Total Protein (6.3-8.3) g/dL Albumin (3.5-5.0) g/dL Globulin (2.2-3.9) gm/dL Albumin/Globulin Ratio (1.0-2.1) Laboratory Results - last 24 hr 12/01/16 12/01/16 12/01/16 11:15 13:55 21:09 WBC RBC Hgb Hct MCV MCH MCHC RDW Plt Count MPV Sodium Potassium Chloride Carbon Dioxide Anion Gap BUN Creatinine Est GFR ( Amer) Est GFR (Non-Af Amer) POC Glucose (mg/dL) 340 H 158 H 275 H Random Glucose Calcium Phosphorus Magnesium Total Bilirubin AST ALT Alkaline Phosphatase Total Protein Albumin Globulin Albumin/Globulin Ratio 12/02/16 12/02/16 12/02/16 06:03 06:03 07:16 WBC 10.7 RBC 4.48 Hgb 12.5 Hct 37.8 MCV 84.4 MCH 27.8 MCHC 33.0 RDW 14.8 H Plt Count 263 MPV 9.4 Sodium 130 L Potassium 4.7 Chloride 99 Carbon Dioxide 23 Anion Gap 13 BUN 17 Creatinine 1.1 Est GFR ( Amer) > 60 Est GFR (Non-Af Amer) 51 POC Glucose (mg/dL) 233 H Random Glucose 287 H Calcium 8.7 Phosphorus 4.0 Magnesium 1.9 Total Bilirubin 0.5 AST 39 H ALT 19 Alkaline Phosphatase 63 Total Protein 6.8 Albumin 3.5 Globulin 3.3 Albumin/Globulin Ratio 1.0 Fingerstick Blood Sugar Results: 275 Review of Systems - Review of Systems All systems: reviewed and no additional remarkable complaints except - Constitutional Constitutional: absent: Fever, Chills - EENT Eyes: As Per HPI. absent: Change in Vision Ears: As Per HPI. absent: Tinnitus, Dizziness Nose/Mouth/Throat: As Per HPI. absent: Sore Throat - Cardiovascular Cardiovascular: As Per HPI. absent: Chest Pain, Dyspnea - Respiratory Respiratory: As Per HPI. absent: Cough, Chest Congestion - Gastrointestinal Gastrointestinal: As Per HPI, Constipation. absent: Abdominal Pain, Diarrhea, Nausea, Vomiting - Genitourinary Genitourinary: As Per HPI. absent: Dysuria - Integumentary Integumentary: As Per HPI. absent: Rash - Neurological Neurological: As Per HPI. absent: Headaches Critical Care Progress Note - Nutrition Nutrition: Nutrition Category Date Time Status Heart Healthy Diet [DIET] Diets 12/01/16 Dinner Active Assessment/Plan - Assessment and Plan (Free Text) Assessment: 56F PMHx insulin dependent DM, diverticulosis, HTN, CVA 2000 with right sided weakness and HLD presented with chest pain Plan: Neuro -Hx of CVA 2000 -CT head: no acute infarct or intracranila hemmorhage; old L basal ganglia/ coronal radiata infarct; small old R frontoparietal infarct -AO x 3 -residual R sided weakness and facial droop from old CVA- no acute issues -Lipid panel WNL -spastic hemiparesis as per neuro which could benefit from botulinum toxin over right arm- cleared for cardiac cath -Neurology Dr. Munguia following Cardiovascular -acute NSTEMI -s/p intervention of L Cx with 2 drug eluting stents yesterday 12/[address] Ahn -Cardiac cath: L circumflex 99 stenosis -Patient for PCI at [facility] today 12/01 -troponin: 0.114 on admission--> 13.5--> 11.3--> 10.2--> 5.68--> 3.220 -Associated EKGs show no acute changes -f/u echo -Lipid panel WNL -patient for cardiac cath today 11/30 -Tylenol 650mg po q6 prn mild pain -Norvasc 10mg po daily -Lisinopril 20mg po daily -Lopressor 50mg po q12 -Nitrostat sl 0.4mg prn -Crestor 40mg po hs -ASA 81mg po daily -Plavix 75mg po daily -Cardiology Dr. Ahn following Respiratory -no acute issues -SOB resolved -Patient breathing spontaneously on room air -CXR 11/29 no active disease -CT chest 11/29 negative for pneumonia -ABG 11/29 pO2 73 Bicarb 20.6 pH 7.33 total CO2 21.2 Glucose 337 Lactate 4.4 GI -no acute issues -NPO after breakfast for cardiac cath Endo -HgbA1c 11.2 -Hx of DM2 -RISS Novolin -Novolog 20U sc TID -Lantus 20U sc hs Renal -no acute issues Heme -elevated D dimer 381 -H&H stable -Patient was on heparin gtt for elevated troponin- d/c this AM -f/u venous dopplers -CTA: negative for PE; b/l lower lobe linear scar/atelectasis. Incidental 4mm R upper lobe nodule. ID -no acute issues -WBC 12.4 on 11/29 - likely reactionary afebrile since admission -Florastor 250mg po bid -Chest CT negative for pneumonia -blood culture negative -procalcitonin 0.05 -f/u urine culture MSK -RUE strength decreased compared to LUE- residual from past CVA -no acute issues DVT ppx: SCD c/i until venous dopplers r/o DVT; VTE ppx GI ppx: Pepcid 20mg po daily Code Status: full code Dispo: patient stable for transfer to [facility] Case discussed with Dr Woody Lockhart PGY2 <John Mckay S - Last Filed: 12/02/16 16:33> CCU Objective - Vital Signs / Intake & Output Intake and Output (Last 8hrs): Intake & Output 12/02/16 12/02/16 12/02/16 06:59 14:59 22:59 Intake Total 680 790 Output Total 1200 200 Balance -520 590 Intake: Intake, IV Amount 560 210 Left Forearm 560 210 Oral 120 580 Output: Urine 1200 200 Urine, Voided 1200 200 Other: # Voids Urine, Voided 1 1 - Medications Active Medications: Active Medications Generic Name Dose Route Start Last Admin Trade Name Freq PRN Reason Stop Dose Admin Acetaminophen 650 mg 11/29/16 21:24 12/02/16 00:18 Tylenol 325mg Tab PO 650 mg Q6 PRN Administration Pain, Mild (1-3) Amlodipine Besylate 10 mg 11/29/16 10:30 12/02/16 09:56 Norvasc PO 10 mg DAILY JIMMY Administration Aspirin 81 mg 11/29/16 10:00 12/02/16 09:55 Aspirin Chewable PO 81 mg DAILY JIMMY Administration Clopidogrel Bisulfate 75 mg 12/02/16 10:00 12/02/16 09:57 Plavix PO 75 mg DAILY JIMMY Administration Famotidine 20 mg 12/02/16 10:00 12/02/16 09:57 Pepcid PO 20 mg DAILY JIMMY Administration Insulin Aspart 20 unit 11/29/16 14:00 12/02/16 14:16 Novolog SC 20 unit TID JIMMY Administration Insulin Glargine 20 unit 11/29/16 22:00 12/01/16 21:10 Lantus SC 20 units HS JIMMY Administration Insulin Human Regular 0 unit 11/29/16 16:30 12/02/16 12:43 Novolin R SC 6 unit ACHS JIMMY Administration Protocol Lisinopril 20 mg 11/29/16 12:19 12/02/16 09:57 Zestril PO 20 mg DAILY JIMMY Administration Metoprolol Tartrate 50 mg 11/30/16 10:05 12/02/16 09:56 Lopressor PO 50 mg Q12 JIMMY Administration Rosuvastatin Calcium 40 mg 11/29/16 12:15 12/01/16 21:10 Crestor PO 40 mg HS JIMMY Administration Saccharomyces Boulardii 250 mg 11/29/16 18:00 12/02/16 09:56 Florastor PO 250 mg BID JIMMY Administration - Patient Studies Lab Studies: Lab Studies 12/02/16 12/02/16 12/02/16 Range/Units 12:29 07:16 06:03 WBC (4.8-10.8) K/uL RBC (3.80-5.20) Mil/uL Hgb (11.0-16.0) g/dL Hct (34.0-47.0) % MCV (81.0-99.0) fL MCH (27.0-31.0) pg MCHC (33.0-37.0) g/dL RDW (11.5-14.5) % Plt Count (130-400) K/uL MPV (7.2-11.7) fL Sodium 130 L (132-148) mmol/L Potassium 4.7 (3.6-5.2) mmol/L Chloride 99 (98-107) mmol/L Carbon Dioxide 23 (22-30) mmol/L Anion Gap 13 (10-20) BUN 17 (7-17) mg/dL Creatinine 1.1 (0.7-1.2) MG/DL Est GFR ( Amer) > 60 Est GFR (Non-Af Amer) 51 POC Glucose (mg/dL) 312 H 233 H (65-110) mg/dL Random Glucose 287 H (65-105) mg/dL Calcium 8.7 (8.6-10.4) mg/dl Phosphorus 4.0 (2.5-4.5) mg/dL Magnesium 1.9 (1.6-2.3) mg/dL Total Bilirubin 0.5 (0.2-1.3) mg/dL AST 39 H (14-36) U/L ALT 19 (9-52) U/L Alkaline Phosphatase 63 (38-126) U/L Total Protein 6.8 (6.3-8.3) g/dL Albumin 3.5 (3.5-5.0) g/dL Globulin 3.3 (2.2-3.9) gm/dL Albumin/Globulin Ratio 1.0 (1.0-2.1) 12/02/16 12/01/16 Range/Units 06:03 21:09 WBC 10.7 (4.8-10.8) K/uL RBC 4.48 (3.80-5.20) Mil/uL Hgb 12.5 (11.0-16.0) g/dL Hct 37.8 (34.0-47.0) % MCV 84.4 (81.0-99.0) fL MCH 27.8 (27.0-31.0) pg MCHC 33.0 (33.0-37.0) g/dL RDW 14.8 H (11.5-14.5) % Plt Count 263 (130-400) K/uL MPV 9.4 (7.2-11.7) fL Sodium (132-148) mmol/L Potassium (3.6-5.2) mmol/L Chloride (98-107) mmol/L Carbon Dioxide (22-30) mmol/L Anion Gap (10-20) BUN (7-17) mg/dL Creatinine (0.7-1.2) MG/DL Est GFR ( Amer) Est GFR (Non-Af Amer) POC Glucose (mg/dL) 275 H (65-110) mg/dL Random Glucose (65-105) mg/dL Calcium (8.6-10.4) mg/dl Phosphorus (2.5-4.5) mg/dL Magnesium (1.6-2.3) mg/dL Total Bilirubin (0.2-1.3) mg/dL AST (14-36) U/L ALT (9-52) U/L Alkaline Phosphatase (38-126) U/L Total Protein (6.3-8.3) g/dL Albumin (3.5-5.0) g/dL Globulin (2.2-3.9) gm/dL Albumin/Globulin Ratio (1.0-2.1) Laboratory Results - last 24 hr 12/01/16 12/02/16 12/02/16 21:09 06:03 06:03 WBC 10.7 RBC 4.48 Hgb 12.5 Hct 37.8 MCV 84.4 MCH 27.8 MCHC 33.0 RDW 14.8 H Plt Count 263 MPV 9.4 Sodium 130 L Potassium 4.7 Chloride 99 Carbon Dioxide 23 Anion Gap 13 BUN 17 Creatinine 1.1 Est GFR ( Amer) > 60 Est GFR (Non-Af Amer) 51 POC Glucose (mg/dL) 275 H Random Glucose 287 H Calcium 8.7 Phosphorus 4.0 Magnesium 1.9 Total Bilirubin 0.5 AST 39 H ALT 19 Alkaline Phosphatase 63 Total Protein 6.8 Albumin 3.5 Globulin 3.3 Albumin/Globulin Ratio 1.0 12/02/16 12/02/16 07:16 12:29 WBC RBC Hgb Hct MCV MCH MCHC RDW Plt Count MPV Sodium Potassium Chloride Carbon Dioxide Anion Gap BUN Creatinine Est GFR ( Amer) Est GFR (Non-Af Amer) POC Glucose (mg/dL) 233 H 312 H Random Glucose Calcium Phosphorus Magnesium Total Bilirubin AST ALT Alkaline Phosphatase Total Protein Albumin Globulin Albumin/Globulin Ratio Critical Care Progress Note - Nutrition Nutrition: Nutrition Category Date Time Status Heart Healthy Diet [DIET] Diets 12/01/16 Dinner Active Attending/Attestation - Attestation I have personally seen and examined this patient.: Yes I have fully participated in the care of the patient.: Yes I have reviewed all pertinent clinical information: Yes Notes (Text): 12/02/16 16:32 patient seen and examined in the intensive care unit. Case discussed with house staff in the morning rounds. Patient s/p intervention of L Cx with 2 drug eluting stents yesterday 12/01 and cardiac cath 11/30 showed L Circumflex 99% stenosis. Patient had no acute complaints and has been encouraged to ambulate. Stable for transfer to [facility].
[2016-12-02] MEDS: (Novolin R) Insulin Human Regular 100 units/ml vial SC SCH ×4 (07:56→21:35)
--- NOTE | 2016-12-02 09:36 | CP.PCM.PN ---
Subjective - Date & Time of Evaluation Date of Evaluation: 12/02/16 Time of Evaluation: 09:20 - Subjective Subjective: Medical Attending Note: Follow-up: Acute Coronary Syndrome, Non-stemi, CAD Patient seen and examined. Patient denies acute complaints. Tolerating diet at bedside. patient reports last constipation two days ago. Objective - Vital Signs/Intake and Output Vital Signs (last 24 hours): Temp Pulse Resp BP Pulse Ox 98.2 F 92 H 20 150/82 93 L 12/02/16 08:00 12/02/16 07:00 12/02/16 07:00 12/02/16 07:00 12/02/16 07:00 Intake and Output: 12/02/16 12/02/16 06:59 18:59 Intake Total 1180 140 Output Total 1400 200 Balance -220 -60 - Medications Medications: Current Medications Acetaminophen (Tylenol 325mg Tab) 650 mg PO Q6 PRN PRN Reason: Pain, Mild (1-3) Last Admin: 12/02/16 00:18 Dose: 650 mg Amlodipine Besylate (Norvasc) 10 mg PO DAILY [facility] Last Admin: 12/01/16 09:21 Dose: 10 mg Aspirin (Aspirin Chewable) 81 mg PO DAILY [facility] Last Admin: 12/01/16 09:21 Dose: 81 mg Clopidogrel Bisulfate (Plavix) 75 mg PO DAILY [facility] Famotidine (Pepcid) 20 mg PO DAILY [facility] Sodium Chloride (Sodium Chloride 0.9%) 1,000 mls @ 70 mls/hr IV .[id number] [facility] Stop: 12/02/16 23:59 Last Admin: 12/01/16 21:00 Dose: 70 mls/hr Insulin Aspart (Novolog) 20 unit SC TID [facility] Last Admin: 12/01/16 19:19 Dose: Not Given Insulin Glargine (Lantus) 20 unit SC HS [facility] Last Admin: 12/01/16 21:10 Dose: 20 units Insulin Human Regular (Novolin R) 0 unit SC ACHS [facility] PRN Reason: Protocol Last Admin: 12/02/16 07:56 Dose: 3 unit Lisinopril (Zestril) 20 mg PO DAILY [facility] Last Admin: 12/01/16 09:21 Dose: 20 mg Metoprolol Tartrate (Lopressor) 50 mg PO Q12 [facility] Last Admin: 12/01/16 21:10 Dose: 50 mg Rosuvastatin Calcium (Crestor) 40 mg PO HS [facility] Last Admin: 12/01/16 21:10 Dose: 40 mg Saccharomyces Boulardii (Florastor) 250 mg PO BID [facility] Last Admin: 12/01/16 21:10 Dose: 250 mg - Labs Labs: 12/02/16 06:03 12/02/16 06:03 PT 10.3 SECONDS (9.7-12.2) 11/30/16 02:34 INR 0.9 11/30/16 02:34 APTT 49 SECONDS (21-34) H 11/30/16 02:34 - Constitutional Appears: Non-toxic, No Acute Distress - Head Exam Head Exam: NORMAL INSPECTION - Eye Exam Eye Exam: EOMI - ENT Exam ENT Exam: Mucous Membranes Moist - Respiratory Exam Respiratory Exam: Clear to Ausculation Bilateral, NORMAL BREATHING PATTERN. absent: Rales, Rhonchi, Wheezes - Cardiovascular Exam Cardiovascular Exam: REGULAR RHYTHM, +S1, +S2 - GI/Abdominal Exam GI & Abdominal Exam: Soft, Normal Bowel Sounds. absent: Distended, Firm, Guarding, Rigid, Tenderness, Rebound Additional comments: Right groin: cath site: dry/intact, no pain palpation - Extremities Exam Extremities Exam: Normal Capillary Refill. absent: Pedal Edema - Back Exam Back Exam: absent: CVA tenderness (L), CVA tenderness (R) - Neurological Exam Neurological Exam: Alert, Awake, Oriented x3 - Psychiatric Exam Psychiatric exam: Normal Affect, Normal Mood - Skin Skin Exam: Dry, Normal Color, Warm Assessment and Plan (1) Acute coronary syndrome Status: Acute (2) Non-STEMI (non-ST elevated myocardial infarction) Status: Acute (3) D-dimer, elevated Status: Acute (4) Diabetes Status: Chronic (5) Hypertension Status: Chronic (6) Hyperlipidemia Status: Chronic (7) History of CVA (cerebrovascular accident) Status: Chronic (8) Elevated lactic acid level Status: Acute (9) Prophylactic measure Status: Chronic - Assessment and Plan (Free Text) Assessment: (1) Acute coronary syndrome Status: Acute Comment: Cardiology (Dr. Ahn) on consult-->help appreciated s.p intervention of Left circumflex with 2 drug eluting stents Plavix 75mg PO daily Aspirin 81mg PO daily Norvasc 10mg PO daily Lisinopril 20mg Po daily Lopressor 50mg PO Q 12hours Crestor 40mg POqHS NS 70cc/hr Risk factor: Diabetes, Hypertension, Hyperlipidemia, Grandfather (father) side has had heart problems T, Chol: 125, LDL: 60, HDl: 37 Hgba1c: 11.2 Echocardiogram (12/01/16): left ventricular function is normal, left ventricular ejection fraction is within normal range. No regional wall motion abnormalities noted. Mitral regurgitation is mild (2) Non-STEMI (non-ST elevated myocardial infarction) Status: Acute Comment: Cardiology (Dr. Ahn) on consult-->help appreciated s.p intervention of Left circumflex with 2 drug eluting stents Plavix 75mg PO daily Aspirin 81mg PO daily Norvasc 10mg PO daily Lisinopril 20mg Po daily Lopressor 50mg PO Q 12hours Crestor 40mg POqHS NS 70cc/hr Risk factor: Diabetes, Hypertension, Hyperlipidemia, Grandfather (father) side has had heart problems Echocardiogram (12/01/16): left ventricular function is normal, left ventricular ejection fraction is within normal range. No regional wall motion abnormalities noted. Mitral regurgitation is mild (3) D-dimer, elevated Status: Acute Comment: Elevated D-dimer. CT Chest (11/29/16): no evidence of pulmonary embolism. Bilateral lower lobe linear scar/atelectasis. Incidental 4mm upper lobe nodule. Otherwise unremarkable examination. Venous doppler: negative for DVT (4) Diabetes Status: Chronic Comment: Lantus 20 units subq HS. Novolog 20mg subq TID regular insulin sliding subq Patient does take Metfomin at home, which was held on admission. Will wait 48- 72 hours before starting metformin post cath. Hgba1c: 11.2 lipid panel: T, Chol: 125, LDL: 60, HDl: 37 Lisinopril 20mg Po daily Crestor 40mg POqHS (5) Hypertension Status: Chronic Comment: Norvasc 10mg Po daily Lisinopril 20mg Po daily Lopressor 50mg PO 12 (6) Hyperlipidemia Status: Chronic Comment: lipid panel: T, Chol: 125, LDL: 60, HDl: 37 Crestor 40mg PqHS (7) History of CVA (cerebrovascular accident) Status: Chronic Comment: History of CVA in 2000 with right sided residual weakness. Aspirin 81mg PO daily. Crestor 40mg POqHS. Blood pressure control. Neurology (Dr. Munguia) on consult CT Head (11/29/16): no evidence of acute infarct. No intracranial hemorrhage. Old left basal ganglia/coronal radiate infarct. Small old right frontoparietal infarct (8) Elevated lactic acid level Status: Acute Comment: Monitor lactic acid. Order for procalcitonin, blood and urine cultures. CT Chest is negative for pneumonia. Patient received dose of Rocephin and Azithromycin in the ED (9) Prophylactic measure Status: Chronic Comment: Pepcid 20mg PO bid. PT/OT eval. Patient is full code-->verified on admission. She does not have living family.
[2016-12-02] MEDS: (Novolog) Insulin Aspart, Recombinant 100 u/ml 10 ml vial SC SCH ×3 (09:56→17:04)
[2016-12-02] MEDS: Saccharomyces Boulardi 250 mg Cap PO SCH ×2 (09:56→17:05)
[2016-12-02] MEDS: Sodium Chloride 0.9% 1,000 ML IV SCH ×2 (11:20→17:24)
[2016-12-02] MEDS ORDERED: Bisacodyl 5mg EC Tab PO ONE (16:54)
[2016-12-02] MEDS: (Lantus) Insulin Glargine, Recombinant SC SCH (21:25)
--- NOTE | 2016-12-02 23:19 | CP.PCM.PN ---
Subjective - Date & Time of Evaluation Date of Evaluation: 12/02/16 Time of Evaluation: 15:00 - Subjective Subjective: Patient seen and evaluated Comfortable Denies chest pain and dyspnea Objective - Vital Signs/Intake and Output Vital Signs (last 24 hours): Temp Pulse Resp BP Pulse Ox 98.7 F 95 H 16 133/80 98 12/02/16 20:00 12/02/16 20:00 12/02/16 20:00 12/02/16 20:00 12/02/16 20:00 Intake and Output: 12/02/16 12/03/16 18:59 06:59 Intake Total 1825 390 Output Total 200 200 Balance 1625 190 - Medications Medications: Current Medications Acetaminophen (Tylenol 325mg Tab) 650 mg PO Q6 PRN PRN Reason: Pain, Mild (1-3) Last Admin: 12/02/16 17:08 Dose: 650 mg Amlodipine Besylate (Norvasc) 10 mg PO DAILY [facility] Last Admin: 12/02/16 09:56 Dose: 10 mg Aspirin (Aspirin Chewable) 81 mg PO DAILY [facility] Last Admin: 12/02/16 09:55 Dose: 81 mg Clopidogrel Bisulfate (Plavix) 75 mg PO DAILY [facility] Last Admin: 12/02/16 09:57 Dose: 75 mg Famotidine (Pepcid) 20 mg PO DAILY [facility] Last Admin: 12/02/16 09:57 Dose: 20 mg Sodium Chloride (Sodium Chloride 0.9%) 1,000 mls @ 75 mls/hr IV .[id number] [facility] Stop: 12/03/16 17:00 Last Admin: 12/02/16 17:24 Dose: 75 mls/hr Insulin Aspart (Novolog) 20 unit SC TID [facility] Last Admin: 12/02/16 17:04 Dose: 20 unit Insulin Glargine (Lantus) 20 unit SC HS [facility] Last Admin: 12/02/16 21:25 Dose: 20 units Insulin Human Regular (Novolin R) 0 unit SC ACHS [facility] PRN Reason: Protocol Last Admin: 12/02/16 21:35 Dose: Not Given Lisinopril (Zestril) 20 mg PO DAILY [facility] Last Admin: 12/02/16 09:57 Dose: 20 mg Metoprolol Tartrate (Lopressor) 50 mg PO Q12 [facility] Last Admin: 12/02/16 21:25 Dose: 50 mg Rosuvastatin Calcium (Crestor) 40 mg PO HS [facility] Last Admin: 12/02/16 21:25 Dose: 40 mg Saccharomyces Boulardii (Florastor) 250 mg PO BID [facility] Last Admin: 12/02/16 17:05 Dose: 250 mg - Labs Labs: 12/02/16 06:03 12/02/16 06:03 PT 10.3 SECONDS (9.7-12.2) 11/30/16 02:34 INR 0.9 11/30/16 02:34 APTT 49 SECONDS (21-34) H 11/30/16 02:34
[2016-12-03 04:34] VITALS: RESP 18
[2016-12-03] MEDS: Sodium Chloride 0.9% 1,000 ML IV SCH (06:20)
[2016-12-03 06:49] LABS: BASO # 0.1 K/uL (0.0-0.2); BASO % 0.7 % (0.0-2.0); EOS # 0.1 K/uL (0.0-0.7); EOS % 1.4 % (0.0-4.0); HEMATOCRIT 38.9 % (34.0-47.0); LYMPH % 29.2 % (20.0-40.0); MEAN CELL VOLUME 84.8 fL (81.0-99.0); MEAN CORPUSCULAR HEMOGLOBIN 27.8 pg (27.0-31.0); MEAN CORPUSCULAR HGB CONC 32.8 g/dL (33.0-37.0); MEAN PLATELET VOLUME 9.4 fL (7.2-11.7); MONO # 1.1 K/uL (0.0-0.8); MONO % 10.5 % (0.0-10.0); RED CELL DISTRIBUTION WIDTH 14.5 % (11.5-14.5); WHITE BLOOD COUNT 10.3 K/uL (4.8-10.8)
[2016-12-03 07:14] LABS: CHLORIDE 100 mmol/L (98-107); POTASSIUM 4.6 mmol/L (3.6-5.2); SODIUM 133 mmol/L (132-148)
[2016-12-03 07:16] LABS: BILIRUBIN,TOTAL 0.6 mg/dL (0.2-1.3); CARBON DIOXIDE 20 mmol/L (22-30); GFR AFRICAN-AMERICAN > 60
[2016-12-03 07:17] LABS: ALB/GLOB RATIO 1.1 (1.0-2.1); ALKALINE PHOSPHATASE 63 U/L (38-126); ALT/SGPT 15 U/L (9-52); AST/SGOT 43 U/L (14-36); BLOOD UREA NITROGEN 20 mg/dL (7-17); CALCIUM 8.7 mg/dl (8.6-10.4); GLUCOSE,RANDOM 182 mg/dL (65-105); PHOSPHOROUS 3.5 mg/dL (2.5-4.5); TOTAL PROTEIN 7.3 g/dL (6.3-8.3)
[2016-12-03] MEDS: (Novolin R) Insulin Human Regular 100 units/ml vial SC SCH ×2 (07:54→11:45)
--- NOTE | 2016-12-03 09:09 | CP.PCM.PN ---
Objective - Vital Signs/Intake and Output Vital Signs (last 24 hours): Temp Pulse Resp BP Pulse Ox 98.4 F 97 H 18 154/87 H 96 12/03/16 04:00 12/03/16 04:00 12/03/16 04:00 12/03/16 04:00 12/03/16 04:00 Intake and Output: 12/03/16 12/03/16 06:59 18:59 Intake Total 1500 Output Total 900 Balance 600 - Medications Medications: Current Medications Acetaminophen (Tylenol 325mg Tab) 650 mg PO Q6 PRN PRN Reason: Pain, Mild (1-3) Last Admin: 12/02/16 17:08 Dose: 650 mg Amlodipine Besylate (Norvasc) 10 mg PO DAILY [facility] Last Admin: 12/02/16 09:56 Dose: 10 mg Aspirin (Aspirin Chewable) 81 mg PO DAILY [facility] Last Admin: 12/02/16 09:55 Dose: 81 mg Clopidogrel Bisulfate (Plavix) 75 mg PO DAILY [facility] Last Admin: 12/02/16 09:57 Dose: 75 mg Famotidine (Pepcid) 20 mg PO DAILY [facility] Last Admin: 12/02/16 09:57 Dose: 20 mg Sodium Chloride (Sodium Chloride 0.9%) 1,000 mls @ 75 mls/hr IV .[id number] [facility] Stop: 12/03/16 17:00 Last Admin: 12/03/16 06:20 Dose: Not Given Insulin Aspart (Novolog) 20 unit SC TID [facility] Last Admin: 12/02/16 17:04 Dose: 20 unit Insulin Glargine (Lantus) 20 unit SC [facility] Last Admin: 12/02/16 21:25 Dose: 20 units Insulin Human Regular (Novolin R) 0 unit SC ACHS [facility] PRN Reason: Protocol Last Admin: 12/03/16 07:54 Dose: 2 unit Lisinopril (Zestril) 20 mg PO DAILY [facility] Last Admin: 12/02/16 09:57 Dose: 20 mg Metoprolol Tartrate (Lopressor) 50 mg PO Q12 [facility] Last Admin: 12/02/16 21:25 Dose: 50 mg Rosuvastatin Calcium (Crestor) 40 mg PO HS [facility] Last Admin: 12/02/16 21:25 Dose: 40 mg Saccharomyces Boulardii (Florastor) 250 mg PO BID [facility] Last Admin: 12/02/16 17:05 Dose: 250 mg - Labs Labs: 12/03/16 06:31 12/03/16 06:31 PT 10.3 SECONDS (9.7-12.2) 11/30/16 02:34 INR 0.9 11/30/16 02:34 APTT 49 SECONDS (21-34) H 11/30/16 02:34
[2016-12-03 09:30] VITALS: BP 158/89; PULSE 98; O2SAT 95
[2016-12-03] MEDS: Saccharomyces Boulardi 250 mg Cap PO SCH (09:46)
[2016-12-03] MEDS: (Novolog) Insulin Aspart, Recombinant 100 u/ml 10 ml vial SC SCH ×2 (09:47→14:58)
[2016-12-03] MEDS ORDERED: (Lantus) Insulin Glargine, Recombinant SC ONE (12:15)
[2016-12-03 12:32] VITALS: TEMP 98.3
--- NOTE | 2016-12-03 13:31 | CP.PCM.DIS ---
<Jonathan Vacasshalle Teixeira - Last Filed: 12/03/16 18:31> Provider - Provider Date of Admission: 11/29/16 14:48 Attending physician: Reshma Carrasco DO Time Spent in preparation of Discharge (in minutes): 40 Diagnosis - Discharge Diagnosis (1) Acute coronary syndrome Status: Chronic Comment: See hospital summary for further details. (2) D-dimer, elevated Status: Resolved Comment: See hospital summary for further details. (3) Elevated lactic acid level Status: Resolved Comment: See hospital summary for further details. (4) Non-STEMI (non-ST elevated myocardial infarction) Status: Resolved Comment: See hospital summary for further details. (5) History of CVA (cerebrovascular accident) Status: Chronic Comment: See hospital summary for further details. (6) Hyperlipidemia Status: Chronic Comment: See hospital summary for further details. (7) Hypertension Status: Chronic Comment: See hospital summary for further details. Hospital Course - Lab Results Lab Results: Micro Results 11/29/16 Unknown Naris MRSA Culture (Admit) - Final MRSA NOT DETECTED Most Recent Lab Values WBC 10.3 K/uL (4.8-10.8) 12/03/16 06:31 RBC 4.59 Mil/uL (3.80-5.20) 12/03/16 06:31 Hgb 12.7 g/dL (11.0-16.0) 12/03/16 06:31 Hct 38.9 % (34.0-47.0) 12/03/16 06:31 MCV 84.8 fL (81.0-99.0) 12/03/16 06:31 MCH 27.8 pg (27.0-31.0) 12/03/16 06:31 MCHC 32.8 g/dL (33.0-37.0) L 12/03/16 06:31 RDW 14.5 % (11.5-14.5) 12/03/16 06:31 Plt Count 247 K/uL (130-400) 12/03/16 06:31 MPV 9.4 fL (7.2-11.7) 12/03/16 06:31 Neut % (Auto) 58.2 % (50.0-75.0) 12/03/16 06:31 Lymph % (Auto) 29.2 % (20.0-40.0) 12/03/16 06:31 [place] % (Auto) 10.5 % (0.0-10.0) H 12/03/16 06:31 Eos % (Auto) 1.4 % (0.0-4.0) 12/03/16 06:31 Baso % (Auto) 0.7 % (0.0-2.0) 12/03/16 06:31 Neut # 6.0 K/uL (1.8-7.0) 12/03/16 06:31 Lymph # 3.0 K/uL (1.0-4.3) 12/03/16 06:31 [place] # 1.1 K/uL (0.0-0.8) H 12/03/16 06:31 Eos # 0.1 K/uL (0.0-0.7) 12/03/16 06:31 Baso # 0.1 K/uL (0.0-0.2) 12/03/16 06:31 PT 10.3 SECONDS (9.7-12.2) 11/30/16 02:34 INR 0.9 11/30/16 02:34 APTT 49 SECONDS (21-34) H 11/30/16 02:34 D-Dimer, Quantitative 381 ng/mlDDU (0-243) H 11/29/16 01:28 Puncture Site Lr 11/29/16 02:29 pCO2 38 mm/Hg (35-45) 11/29/16 02:29 pO2 73 mm/Hg (80-100) L 11/29/16 02:29 HCO3 20.6 mmol/L (21-28) L 11/29/16 02:29 ABG pH 7.33 (7.35-7.45) L 11/29/16 02:29 ABG Total CO2 21.2 mmol/L (22-28) L 11/29/16 02:29 ABG O2 Saturation 97.0 % (95-98) 11/29/16 02:29 ABG Base Excess -5.4 mmol/L (-2.0-3.0) L 11/29/16 02:29 Gibran Test Pos 11/29/16 02:29 ABG Potassium 4.6 mmol/L (3.6-5.2) 11/29/16 02:29 A-a O2 Difference 29.0 mm/Hg 11/29/16 02:29 Respiratory Index 0.4 11/29/16 02:29 Sodium 137.0 mmol/l (132-148) 11/29/16 02:29 Chloride 106.0 mmol/L (98-107) 11/29/16 02:29 Glucose 337 mg/dl (65-105) H 11/29/16 02:29 Lactate 4.4 mmol/L (0.7-2.1) H* 11/29/16 02:29 FiO2 21.0 % 11/29/16 02:29 Crit Value Called To 11/29/16 02:29 Crit Value Called By Lilibeth rent and housing investigator 11/29/16 02:29 Crit Value Read Back Y 11/29/16 02:29 Blood Gas Notified Time 233 11/29/16 02:29 Sodium 133 mmol/L (132-148) 12/03/16 06:31 Potassium 4.6 mmol/L (3.6-5.2) 12/03/16 06:31 Chloride 100 mmol/L (98-107) 12/03/16 06:31 Carbon Dioxide 20 mmol/L (22-30) L 12/03/16 06:31 Anion Gap 18 (10-20) 12/03/16 06:31 BUN 20 mg/dL (7-17) H 12/03/16 06:31 Creatinine 1.0 MG/DL (0.7-1.2) 12/03/16 06:31 Est GFR ( Amer) > 60 12/03/16 06:31 Est GFR (Non-Af Amer) 57 12/03/16 06:31 POC Glucose (mg/dL) 389 mg/dL (65-110) H 12/03/16 12:58 Random Glucose 182 mg/dL (65-105) H 12/03/16 06:31 Hemoglobin A1c 11.2 % (4.2-6.5) H 11/29/16 15:05 Lactic Acid 4.1 mmol/L (0.7-2.1) H* 11/29/16 10:45 Calcium 8.7 mg/dl (8.6-10.4) 12/03/16 06:31 Phosphorus 3.5 mg/dL (2.5-4.5) 12/03/16 06:31 Magnesium 2.0 mg/dL (1.6-2.3) 12/03/16 06:31 Total Bilirubin 0.6 mg/dL (0.2-1.3) 12/03/16 06:31 AST 43 U/L (14-36) H 12/03/16 06:31 ALT 15 U/L (9-52) 12/03/16 06:31 Alkaline Phosphatase 63 U/L (38-126) 12/03/16 06:31 Total Creatine Kinase 197 U/L (30-135) H 12/01/16 06:16 CK-MB (Mass) 5.67 ng/mL (0.0-3.38) H 12/01/16 06:16 Troponin I 5.6800 ng/mL (0.00-0.120) H* 11/30/16 02:29 Troponin I, Quant 3.2200 ng/mL (0.00-0.120) H* 12/01/16 06:16 NT-Pro-B Natriuret Pep 144 pg/mL (0-900) 11/29/16 01:28 Total Protein 7.3 g/dL (6.3-8.3) 12/03/16 06:31 Albumin 3.7 g/dL (3.5-5.0) 12/03/16 06:31 Globulin 3.5 gm/dL (2.2-3.9) 12/03/16 06:31 Albumin/Globulin Ratio 1.1 (1.0-2.1) 12/03/16 06:31 Triglycerides 312 mg/dL (0-149) H 11/29/16 15:03 Cholesterol 125 mg/dL (0-199) 11/29/16 15:03 LDL Cholesterol Direct 60 mg/dL (0-129) 11/29/16 15:03 HDL Cholesterol 37 mg/dL (30-70) 11/29/16 15:03 Lipase 277 U/L (23-300) 11/29/16 01:28 Procalcitonin 0.05 NG/ML (0.19-0.49) L 11/29/16 15:05 TSH 3rd Generation 2.55 mIU/L (0.46-4.68) 11/29/16 15:03 Arterial Blood Potassium 4.6 mmol/L (3.6-5.2) 11/29/16 02:29 Urine Color Yellow (YELLOW) 11/29/16 02:13 Urine Clarity Clear (Clear) 11/29/16 02:13 Urine pH 5.0 (5.0-8.0) 11/29/16 02:13 Ur Specific [place] 1.018 (1.003-1.030) 11/29/16 02:13 Urine Protein Negative mg/dL (NEGATIVE) 11/29/16 02:13 Urine Glucose (UA) 3+ mg/dL (Normal) H 11/29/16 02:13 Urine Ketones Trace mg/dL (NEGATIVE) 11/29/16 02:13 Urine Blood Negative (NEGATIVE) 11/29/16 02:13 Urine Nitrate Negative (NEGATIVE) 11/29/16 02:13 Urine Bilirubin Negative (NEGATIVE) 11/29/16 02:13 Urine Urobilinogen Normal mg/dL (0.2-1.0) 11/29/16 02:13 Ur Leukocyte Esterase 1+ Rima/uL (Negative) H 11/29/16 02:13 Urine WBC (Auto) 22 /hpf (0-5) H 11/29/16 02:13 Urine RBC (Auto) 1 /hpf (0-3) 11/29/16 02:13 Ur Squamous Epith Cells 1 /hpf (0-5) 11/29/16 02:13 - Hospital Course Hospital Course: 56F PMHx insulin dependent DM, diverticulosis, HTN, CVA 2000 with right sided weakness and HLD presented with chest pain. Pt said she was watching TV last night when the severe pressure pain started lower sternum radiating to her left arm, jaws and back for an hour. Pt thought it was her DM acting up so she took her Lantus without relief. Pt then called ambulance and was given additional ASA. Pt has associated SOB. Pt had similar but milder pain on lasting only 10 minutes. Pt has associated SOB but denied other symptoms. Pt sleeps with one pillow and takes hour long walks regularly without cane. Pt compliant with her medications. Patient was admitted to the ICU. Cardiology was consulted (Dr. Ahn). Per cardiology workup: - EKG x3: No acute changes - Troponin: 0.114 on admission--> 13.5--> 11.3--> 10.2--> 5.68--> 3.220 ECHO 11/29/16: The left ventricular function is normal. The left ventricular ejection fraction is within the normal range. No regional wall motion abnormalities noted. Mitral regurgitation is mild. - Cardiac catheterization 11/30/16: Intervention of left circumflex with 2 drug eluting stents. Neurology was consulted (Dr. Munguia). History of CVA in 2000 with right sided residual weakness. Per neurology workup: CT head 11/29/16: no acute infarct or intracranila hemmorhage; old Left basal ganglia/coronal radiata infarct; small old Right frontoparietal infarct Patient is medically stable for discharge. Per cardiology patient is stable for discharge. Patient recommended follow up appointment within one month with Dr. Ahn. Patient strongly recommended to continue baby aspirin, Plavix 75mg by mouth daily and will adjust blood pressure medications accordingly. New prescriptions: 1) Aspirin 81mg PO daily 2) Plavix 75mg PO daily (3 month suppley) 3) lopressor 50mg PO bid 4) Lisinopril 20mg PO daily 5) Crestor 40mg poqHS 6) Advised to start Metformin 1000mg PO bid tomorrow. Discontinue: Lantus 40units subqhs-->changed to 20 units subqHS Clonidine 0.3mg PO qHS Patient also advised to follow up with PMD within one week of hospital discharge. Discharge instructions explained to patient and patient had understanding. Patient should return to ED immediately if symptoms return or worsen. Instructions discussed with patient who understood and agreed. This is a summary of patient's hospitalization please refer to EMR for further details of the record. Discharge Exam - Head Exam Head Exam: NORMAL INSPECTION - Eye Exam Eye Exam: Normal appearance - ENT Exam ENT Exam: Mucous Membranes Moist - Respiratory Exam Respiratory Exam: Clear to PA & Lateral, NORMAL BREATHING PATTERN - Cardiovascular Exam Cardiovascular Exam: REGULAR RHYTHM, +S1, +S2 - GI/Abdominal Exam GI & Abdominal Exam: Normal Bowel Sounds, Soft. absent: Tenderness - Extremities Exam Additional comments: Right upper extremity weakness - Neurological Exam Neurological exam: Alert, Oriented x3 - Psychiatric Exam Psychiatric exam: Normal Mood - Skin Skin Exam: Normal Color, Warm Discharge Plan - Discharge Medications Prescriptions: amLODIPine [Norvasc] 10 mg PO DAILY #30 Aspirin [Aspirin Chewable] 81 mg PO DAILY 30 Days Clopidogrel [Plavix] 75 mg PO DAILY 30 Days Insulin Glargine, Recombina [Lantus] 40 unit SC HS #1 vial Lisinopril [Zestril] 20 mg PO DAILY 30 Days Metoprolol Tartrate [Lopressor] 50 mg PO Q12 60 Days Rosuvastatin Calcium [Crestor] 40 mg PO HS 30 Days - Follow Up Plan Condition: FAIR Disposition: HOME/ ROUTINE Instructions: Myocardial Infarction (DC), Coronary Intravascular Stent Placement (DC) <Reshma Carrasco V - Last Filed: 12/04/16 02:31> Provider - Provider Date of Admission: 11/29/16 14:48 Attending physician: Reshma Carrasco DO Diagnosis - Discharge Diagnosis (1) Acute coronary syndrome Status: Chronic (2) Diabetes Status: Chronic (3) Hypertension Status: Chronic (4) Hyperlipidemia Status: Chronic (5) History of CVA (cerebrovascular accident) Status: Chronic (6) Prophylactic measure Status: Chronic Hospital Course - Lab Results Lab Results: Micro Results 11/29/16 Unknown Naris MRSA Culture (Admit) - Final MRSA NOT DETECTED Most Recent Lab Values WBC 10.3 K/uL (4.8-10.8) 12/03/16 06:31 RBC 4.59 Mil/uL (3.80-5.20) 12/03/16 06:31 Hgb 12.7 g/dL (11.0-16.0) 12/03/16 06:31 Hct 38.9 % (34.0-47.0) 12/03/16 06:31 MCV 84.8 fL (81.0-99.0) 12/03/16 06:31 MCH 27.8 pg (27.0-31.0) 12/03/16 06:31 MCHC 32.8 g/dL (33.0-37.0) L 12/03/16 06:31 RDW 14.5 % (11.5-14.5) 12/03/16 06:31 Plt Count 247 K/uL (130-400) 12/03/16 06:31 MPV 9.4 fL (7.2-11.7) 12/03/16 06:31 Neut % (Auto) 58.2 % (50.0-75.0) 12/03/16 06:31 Lymph % (Auto) 29.2 % (20.0-40.0) 12/03/16 06:31 [place] % (Auto) 10.5 % (0.0-10.0) H 12/03/16 06:31 Eos % (Auto) 1.4 % (0.0-4.0) 12/03/16 06:31 Baso % (Auto) 0.7 % (0.0-2.0) 12/03/16 06:31 Neut # 6.0 K/uL (1.8-7.0) 12/03/16 06:31 Lymph # 3.0 K/uL (1.0-4.3) 12/03/16 06:31 [place] # 1.1 K/uL (0.0-0.8) H 12/03/16 06:31 Eos # 0.1 K/uL (0.0-0.7) 12/03/16 06:31 Baso # 0.1 K/uL (0.0-0.2) 12/03/16 06:31 PT 10.3 SECONDS (9.7-12.2) 11/30/16 02:34 INR 0.9 11/30/16 02:34 APTT 49 SECONDS (21-34) H 11/30/16 02:34 D-Dimer, Quantitative 381 ng/mlDDU (0-243) H 11/29/16 01:28 Puncture Site Lr 11/29/16 02:29 pCO2 38 mm/Hg (35-45) 11/29/16 02:29 pO2 73 mm/Hg (80-100) L 11/29/16 02:29 HCO3 20.6 mmol/L (21-28) L 11/29/16 02:29 ABG pH 7.33 (7.35-7.45) L 11/29/16 02:29 ABG Total CO2 21.2 mmol/L (22-28) L 11/29/16 02:29 ABG O2 Saturation 97.0 % (95-98) 11/29/16 02:29 ABG Base Excess -5.4 mmol/L (-2.0-3.0) L 11/29/16 02:29 Gibran Test Pos 11/29/16 02:29 ABG Potassium 4.6 mmol/L (3.6-5.2) 11/29/16 02:29 A-a O2 Difference 29.0 mm/Hg 11/29/16 02:29 Respiratory Index 0.4 11/29/16 02:29 Sodium 137.0 mmol/l (132-148) 11/29/16 02:29 Chloride 106.0 mmol/L (98-107) 11/29/16 02:29 Glucose 337 mg/dl (65-105) H 11/29/16 02:29 Lactate 4.4 mmol/L (0.7-2.1) H* 11/29/16 02:29 FiO2 21.0 % 11/29/16 02:29 Crit Value Called To 11/29/16 02:29 Crit Value Called By Lilibeth rent and housing investigator 11/29/16 02:29 Crit Value Read Back Y 11/29/16 02:29 Blood Gas Notified Time 233 11/29/16 02:29 Sodium 133 mmol/L (132-148) 12/03/16 06:31 Potassium 4.6 mmol/L (3.6-5.2) 12/03/16 06:31 Chloride 100 mmol/L (98-107) 12/03/16 06:31 Carbon Dioxide 20 mmol/L (22-30) L 12/03/16 06:31 Anion Gap 18 (10-20) 12/03/16 06:31 BUN 20 mg/dL (7-17) H 12/03/16 06:31 Creatinine 1.0 MG/DL (0.7-1.2) 12/03/16 06:31 Est GFR ( Amer) > 60 12/03/16 06:31 Est GFR (Non-Af Amer) 57 12/03/16 06:31 POC Glucose (mg/dL) 389 mg/dL (65-110) H 12/03/16 12:58 Random Glucose 182 mg/dL (65-105) H 12/03/16 06:31 Hemoglobin A1c 11.2 % (4.2-6.5) H 11/29/16 15:05 Lactic Acid 4.1 mmol/L (0.7-2.1) H* 11/29/16 10:45 Calcium 8.7 mg/dl (8.6-10.4) 12/03/16 06:31 Phosphorus 3.5 mg/dL (2.5-4.5) 12/03/16 06:31 Magnesium 2.0 mg/dL (1.6-2.3) 12/03/16 06:31 Total Bilirubin 0.6 mg/dL (0.2-1.3) 12/03/16 06:31 AST 43 U/L (14-36) H 12/03/16 06:31 ALT 15 U/L (9-52) 12/03/16 06:31 Alkaline Phosphatase 63 U/L (38-126) 12/03/16 06:31 Total Creatine Kinase 197 U/L (30-135) H 12/01/16 06:16 CK-MB (Mass) 5.67 ng/mL (0.0-3.38) H 12/01/16 06:16 Troponin I 5.6800 ng/mL (0.00-0.120) H* 11/30/16 02:29 Troponin I, Quant 3.2200 ng/mL (0.00-0.120) H* 12/01/16 06:16 NT-Pro-B Natriuret Pep 144 pg/mL (0-900) 11/29/16 01:28 Total Protein 7.3 g/dL (6.3-8.3) 12/03/16 06:31 Albumin 3.7 g/dL (3.5-5.0) 12/03/16 06:31 Globulin 3.5 gm/dL (2.2-3.9) 12/03/16 06:31 Albumin/Globulin Ratio 1.1 (1.0-2.1) 12/03/16 06:31 Triglycerides 312 mg/dL (0-149) H 11/29/16 15:03 Cholesterol 125 mg/dL (0-199) 11/29/16 15:03 LDL Cholesterol Direct 60 mg/dL (0-129) 11/29/16 15:03 HDL Cholesterol 37 mg/dL (30-70) 11/29/16 15:03 Lipase 277 U/L (23-300) 11/29/16 01:28 Procalcitonin 0.05 NG/ML (0.19-0.49) L 11/29/16 15:05 TSH 3rd Generation 2.55 mIU/L (0.46-4.68) 11/29/16 15:03 Arterial Blood Potassium 4.6 mmol/L (3.6-5.2) 11/29/16 02:29 Urine Color Yellow (YELLOW) 11/29/16 02:13 Urine Clarity Clear (Clear) 11/29/16 02:13 Urine pH 5.0 (5.0-8.0) 11/29/16 02:13 Ur Specific [place] 1.018 (1.003-1.030) 11/29/16 02:13 Urine Protein Negative mg/dL (NEGATIVE) 11/29/16 02:13 Urine Glucose (UA) 3+ mg/dL (Normal) H 11/29/16 02:13 Urine Ketones Trace mg/dL (NEGATIVE) 11/29/16 02:13 Urine Blood Negative (NEGATIVE) 11/29/16 02:13 Urine Nitrate Negative (NEGATIVE) 11/29/16 02:13 Urine Bilirubin Negative (NEGATIVE) 11/29/16 02:13 Urine Urobilinogen Normal mg/dL (0.2-1.0) 11/29/16 02:13 Ur Leukocyte Esterase 1+ Rima/uL (Negative) H 11/29/16 02:13 Urine WBC (Auto) 22 /hpf (0-5) H 11/29/16 02:13 Urine RBC (Auto) 1 /hpf (0-3) 11/29/16 02:13 Ur Squamous Epith Cells 1 /hpf (0-5) 11/29/16 02:13 Attending/Attestation - Attestation I have personally seen and examined this patient.: Yes I have fully participated in the care of the patient.: Yes I have reviewed all pertinent clinical information, including history, physical exam and plan: Yes Notes (Text): This is late computer entry for 12/03/16. Patient seen, examined and case discussed with day-time collector of internal revenue. Patient denies acute complaints this morning Case discussed with cardiology, patient is stable for discharge. Recommended to follow-up with cardiology in 2-4 weeks. Upon discharge: New prescriptions: 1) Aspirin 81mg PO daily (life long) 2) Plavix 75mg PO daily (30 day supply with 3 fills) 3) lopressor 50mg PO bid 4) Lisinopril 20mg PO daily 5) Crestor 40mg poqHS 6) Advised to re-start Metformin 1000mg PO bid tomorrow. Post cath 24-48 hours. 7) resume Lantus 40 units subHS Discontinue: Clonidine 0.3mg PO qHS Sugar uncontrolled at discharge. Patient received half her normal evening dose ( 20 instead of 4) at night; give Lantus 20 units in the morning. Patient tolerating diet. patient to restart metformin tomorrow. Patient also advised to follow up with PMD: Dr. Pinedo within one week of hospital discharge. Discharge instructions explained to patient and patient had understanding. This is a summary of patient's hospitalization. Please refer to EMR for further details (1) Acute coronary syndrome Status: Acute Comment: Cardiology (Dr. Ahn) on consult-->help appreciated s.p intervention of Left circumflex with 2 drug eluting stents Plavix 75mg PO daily Aspirin 81mg PO daily Lisinopril 20mg Po daily Lopressor 50mg PO Q 12hours Crestor 40mg POqHS Risk factor: Diabetes, Hypertension, Hyperlipidemia, Grandfather (father) side has had heart problems T, Chol: 125, LDL: 60, HDl: 37 Hgba1c: 11.2 Echocardiogram (12/01/16): left ventricular function is normal, left ventricular ejection fraction is within normal range. No regional wall motion abnormalities noted. Mitral regurgitation is mild (2) Non-STEMI (non-ST elevated myocardial infarction) Status: Acute Comment: Cardiology (Dr. Ahn) on consult-->help appreciated s.p intervention of Left circumflex with 2 drug eluting stents Plavix 75mg PO daily Aspirin 81mg PO daily Lisinopril 20mg Po daily Lopressor 50mg PO Q 12hours Crestor 40mg POqHS NS 70cc/hr Risk factor: Diabetes, Hypertension, Hyperlipidemia, Grandfather (father) side has had heart problems Echocardiogram (12/01/16): left ventricular function is normal, left ventricular ejection fraction is within normal range. No regional wall motion abnormalities noted. Mitral regurgitation is mild (3) D-dimer, elevated Status: Acute Comment: Elevated D-dimer. CT Chest (11/29/16): no evidence of pulmonary embolism. Bilateral lower lobe linear scar/atelectasis. Incidental 4mm upper lobe nodule. Otherwise unremarkable examination. Venous doppler: negative for DVT (4) Diabetes Status: Chronic Comment: continue home dose: Lantus 40 units subq HS upon discharge Novolog 20mg subq TID regular insulin sliding subq Patient does take Metfomin at home, which was held on discharge. patient advised she can resume Metformin tomorrow. Hgba1c: 11.2 lipid panel: T, Chol: 125, LDL: 60, HDl: 37 Lisinopril 20mg Po daily Crestor 40mg POqHS (5) Hypertension Status: Chronic Comment: Lisinopril 20mg Po daily Lopressor 50mg PO 12 (6) Hyperlipidemia Status: Chronic Comment: lipid panel: T, Chol: 125, LDL: 60, HDl: 37 Crestor 40mg PqHS (7) History of CVA (cerebrovascular accident) Status: Chronic Comment: History of CVA in 2000 with right sided residual weakness. Aspirin 81mg PO daily. Crestor 40mg POqHS. Blood pressure control. Neurology (Dr. Munguia) on consult CT Head (11/29/16): no evidence of acute infarct. No intracranial hemorrhage. Old left basal ganglia/coronal radiate infarct. Small old right frontoparietal infarct (8) Elevated lactic acid level Status: Acute Comment: Monitor lactic acid (elevated in light of nonstemi) Blood cultures remained negative. urine culture contaminate sample procalcitonin low, CT Chest is negative for pneumonia. Patient received dose of Rocephin and Azithromycin in the ED upon admission (9) Prophylactic measure Status: Chronic Comment: Pepcid 20mg PO bid. PT/OT eval. Patient is full code-->verified on admission. She does not have living family
--- NOTE | 2016-12-03 21:46 | CP.PCM.PN ---
Subjective - Date & Time of Evaluation Date of Evaluation: 12/03/16 Time of Evaluation: 07:05 - Subjective Subjective: Patient seen and evaluated Denies chest pain and dyspnea For discharge today Patient advised to follow up with me in 2-4 weeks Objective - Vital Signs/Intake and Output Vital Signs (last 24 hours): Temp Pulse Resp BP Pulse Ox 98.3 F 98 H 18 158/89 H 95 12/03/16 12:00 12/03/16 08:00 12/03/16 08:00 12/03/16 08:00 12/03/16 08:00 Intake and Output: 12/03/16 12/04/16 18:59 06:59 Intake Total 435 Output Total 1 Balance 434 - Labs Labs: 12/03/16 06:31 12/03/16 06:31 PT 10.3 SECONDS (9.7-12.2) 11/30/16 02:34 INR 0.9 11/30/16 02:34 APTT 49 SECONDS (21-34) H 11/30/16 02:34
--- NOTE | 2016-12-04 06:39 | CARD ---
APPROVED REPORT EKG Measurement Heart [id number] [place] [id number] <Conclusion> Normal sinus rhythm Cannot rule out Inferior infarct, age undetermined T wave abnormality, consider lateral ischemia Abnormal ECG
== END 2016-12-03 15:35 | disposition home or self-care (01) | DRG 280 ==
LOC: C.ER 23:57 → C.9E 11-29 08:09 → INTOOBSV 11-29 08:09 → C.9I 11-29 12:31 → OBSVTOIN 11-29 14:48 → C.9I 12-01 17:35
PROVIDERS: ADMIT Hospitalist; ATTEND Hospitalist
PROC: 4A023N7 Measurement of Cardiac Sampling and Pressure, Left Heart, Percutaneous Approach (ICD-10-PCS; principal; 2016-11-30)
PROC: B2111ZZ Fluoroscopy of Multiple Coronary Arteries using Low Osmolar Contrast (ICD-10-PCS; 2016-11-30)
PROC: B310ZZZ Fluoroscopy of Thoracic Aorta (ICD-10-PCS; 2016-11-30)
DX: I21.4 Non-ST elevation (NSTEMI) myocardial infarction (principal); J18.9 Pneumonia, unspecified organism; E11.9 Type 2 diabetes mellitus without complications; I69.351 Hemiplegia and hemiparesis following cerebral infarction affecting right dominant side; I10 Essential (primary) hypertension; E78.5 Hyperlipidemia, unspecified; R74.0 Nonspecific elevation of levels of transaminase and lactic acid dehydrogenase [LDH]; I25.10 Atherosclerotic heart disease of native coronary artery without angina pectoris; E66.9 Obesity, unspecified

== ENCOUNTER 2017-05-08 01:46 | Emergency (ER) | payer MEDICARE, MEDICAID ==
[2017-05-08 01:46] VITALS: BMI 28.7
[2017-05-08 02:01] VITALS: O2SAT 98
--- NOTE | 2017-05-08 02:18 | C.PDOC ---
History Of Present Illness 56 year old female presents to the ER with a complaint of feeling SOB that began tonight. Patient states her blood pressure was mildly elevated at home, she took aspirin and a dose of amlodipine but it was still elevated which prompted visit. Patient had a stent placed last summer and at that time she states she felt like "an elephant was sitting on my chest". Patient reports her SOB has improved since then and denies chest pain, nausea, vomiting, or diaphoresis. Chief Complaint (Nursing): High Blood Pressure History Per: Patient History/Exam Limitations: no limitations Onset/Duration Of Symptoms: Hrs Associated Symptoms: denies: Chest Pain, Dyspnea, Dizziness, Blurred Vision, Focal Weakness, Headache Quality Of Symptoms: Asymptomatic Exacerbating Factor(s): Pos: None Recent travel outside of the [place]: No Past Medical History Reviewed: Historical Data, Nursing Documentation, Vital Signs Vital Signs: Last Vital Signs Temp 98.1 F 05/08/17 03:48 Pulse 96 H 05/08/17 03:48 Resp 18 05/08/17 03:48 BP 119/71 05/08/17 03:48 Pulse Ox 98 05/08/17 03:48 - Medical History PMH: Anemia, CVA (affecting right side), Diabetes, HTN, Hypercholesterolemia, Sleep Apnea (USES C PAP) - [facility] Procedures FLUOROSCOPY OF MULT COR ART USING L OSM CONTRAST (11/29/16) FLUOROSCOPY OF THORACIC AORTA (11/29/16) MEASURE OF CARDIAC SAMPL & PRESSURE, L HEART, PERC APPROACH (11/29/16) Family History: States: Unknown Family Hx - Social History Hx Tobacco Use: No Hx Alcohol Use: No Hx Substance Use: No - Immunization History Hx Tetanus Toxoid Vaccination: Yes Hx Influenza Vaccination: Yes Hx Pneumococcal Vaccination: Yes Review Of Systems Constitutional: Negative for: Sweats Cardiovascular: Negative for: Chest Pain Respiratory: Positive for: Shortness of Breath (Mild) Gastrointestinal: Negative for: Nausea, Vomiting Physical Exam - Physical Exam Appears: Non-toxic, No Acute Distress Skin: Normal Color, Warm, Dry Head: Atraumatic, Normacephalic Eye(s): bilateral: Normal Inspection Oral Mucosa: Moist Neck: Normal, Supple Chest: Symmetrical, No Tenderness Cardiovascular: Rhythm Regular (S1 and S2 within normal limits) Respiratory: Normal Breath Sounds, No Rales, No Rhonchi, No Wheezing Gastrointestinal/Abdominal: Soft, No Tenderness, Other (Obese) Extremity: No Pedal Edema Neurological/Psych: Oriented x3, Normal Speech, Other (No focal deficits) ED Course And Treatment - Laboratory Results Result Diagrams: 05/08/17 02:28 05/08/17 02:28 O2 Sat by Pulse Oximetry: 98 (Room air) Pulse Ox Interpretation: Normal Medical Decision Making Medical Decision Making: EKG, blood work, and CXR ordered. Disposition - Disposition Referrals: [facility] at [facility] [Outside] Disposition: HOME/ ROUTINE Disposition Time: 03:12 Condition: GOOD Forms: [employer] (Armenian) - Clinical Impression Clinical Impression: Hypertension - Scribe Statement The provider has reviewed the documentation as recorded by the Scribe Augustine Javier All medical record entries made by the Scribe were at my direction and personally dictated by me. I have reviewed the chart and agree that the record accurately reflects my personal performance of the history, physical exam, medical decision making, and the department course for this patient. I have also personally directed, reviewed, and agree with the discharge instructions and disposition.
[2017-05-08 02:33] LABS: BASO % 0.5 % (0.0-2.0); EOS # 0.1 K/uL (0.0-0.7); EOS % 1.1 % (0.0-4.0); HEMATOCRIT 35.6 % (34.0-47.0); LYMPH # 2.1 K/uL (1.0-4.3); LYMPH % 27.6 % (20.0-40.0); MEAN CELL VOLUME 82.5 fL (81.0-99.0); MEAN CORPUSCULAR HEMOGLOBIN 26.1 pg (27.0-31.0); MEAN CORPUSCULAR HGB CONC 31.6 g/dL (33.0-37.0); MEAN PLATELET VOLUME 9.4 fL (7.2-11.7); MONO # 0.7 K/uL (0.0-0.8); MONO % 8.5 % (0.0-10.0); RED CELL DISTRIBUTION WIDTH 15.8 % (11.5-14.5); WHITE BLOOD COUNT 7.7 K/uL (4.8-10.8)
[2017-05-08 02:39] LABS: BILIRUBIN,TOTAL 0.3 mg/dL (0.2-1.3); CALCIUM 8.6 mg/dl (8.6-10.4); POTASSIUM 4.9 mmol/L (3.6-5.2); TOTAL PROTEIN 7.4 g/dL (6.3-8.3)
[2017-05-08 02:40] LABS: ALB/GLOB RATIO 1.1 (1.0-2.1)
[2017-05-08 02:51] LABS: TROPONIN I 0.035 ng/mL (0.00-0.120)
[2017-05-08 03:49] VITALS: BP 119/71; PULSE 96; RESP 18; TEMP 98.1
--- NOTE | 2017-05-08 09:20 | RAD ---
PROCEDURE: CHEST RADIOGRAPH, 1 VIEW HISTORY: chest pain COMPARISON: Portable chest 11/29/2016. FINDINGS: LUNGS: No infiltrates bilaterally. PLEURA: No pneumothorax or pleural fluid seen. CARDIOVASCULAR: Normal. OSSEOUS STRUCTURES: No significant abnormalities. VISUALIZED UPPER ABDOMEN: Normal. OTHER FINDINGS: None. IMPRESSION: No interval acute cardiopulmonary disease appreciated.
== END 2017-05-08 03:49 | disposition home or self-care (01) ==
LOC: C.ER 01:46
DX: I10 Essential (primary) hypertension (principal); E11.9 Type 2 diabetes mellitus without complications; E78.00 Pure hypercholesterolemia, unspecified

== ENCOUNTER 2018-04-25 09:42 | Emergency (ER) | payer MEDICARE, MEDICAID ==
[2018-04-25 09:42] VITALS: BMI 28.7
[2018-04-25 09:53] VITALS: O2SAT 98
[2018-04-25 10:56] LABS: BASO % 0.4 % (0.0-2.0); EOS # 0.1 K/uL (0.0-0.7); EOS % 0.7 % (0.0-4.0); HEMOGLOBIN 11.1 g/dL (11.0-16.0); LYMPH # 2.9 K/uL (1.0-4.3); LYMPH % 32.7 % (20.0-40.0); MEAN CELL VOLUME 81.4 fL (81.0-99.0); MEAN CORPUSCULAR HEMOGLOBIN 26.6 pg (27.0-31.0); MEAN CORPUSCULAR HGB CONC 32.7 g/dL (33.0-37.0); MEAN PLATELET VOLUME 9.8 fL (7.2-11.7); MONO # 0.8 K/uL (0.0-0.8); MONO % 8.6 % (0.0-10.0); NEUT # 5.1 K/uL (1.8-7.0); NEUT % 57.6 % (50.0-75.0); NRBC % 0.1 % (0.0-2.0); RBC 4.19 Mil/uL (3.80-5.20); RED CELL DISTRIBUTION WIDTH 17.6 % (11.5-14.5); WHITE BLOOD COUNT 8.9 K/uL (4.8-10.8)
[2018-04-25 11:02] LABS: PROTHROMBIN TIME 10.7 SECONDS (9.7-12.2)
[2018-04-25 11:05] LABS: ALB/GLOB RATIO 1.5 (1.0-2.1); ALBUMIN 4.2 g/dL (3.5-5.0); CALCIUM 9.2 mg/dl (8.6-10.4)
[2018-04-25 11:18] LABS: CK-MB 3.85 ng/mL (0.0-3.38); TROPONIN I 0.024 ng/mL (0.00-0.120)
--- NOTE | 2018-04-25 11:28 | C.PDOC ---
History Of Present Illness 57 y/o female,w/PMhx of IDDM, HTN, and CAD, presents to the ER complaining of left sided chest pain which has been present for the past 3 days. Patient states that the pain is underneath the breasts and radiates to the back. Patient reports she has intermittent episodes of sharp pain which lasts for few seconds and the pain is worse with movement. She notes the pain started radiating to the left shoulder after she applied some pressure to sit up last night. She is compliant with all her medications. Denies having SOB, cough, dizziness, nausea, and vomiting. Time Seen by Provider: 04/25/18 10:01 Chief Complaint (Nursing): Chest Pain History Per: Patient History/Exam Limitations: no limitations Onset/Duration Of Symptoms: Days Current Symptoms Are (Timing): Still Present Severity: Moderate Quality: Sharp Past Medical History Reviewed: Historical Data, Nursing Documentation, Vital Signs Vital Signs: Last Vital Signs Temp 98.7 F 04/25/18 09:50 Pulse 66 04/25/18 10:15 Resp 18 04/25/18 09:50 BP 128/79 04/25/18 10:15 Pulse Ox 98 04/25/18 09:50 - Medical History PMH: Anemia, CVA (affecting right side), Diabetes, HTN, Hypercholesterolemia, Sleep Apnea (USES C PAP) Denies: Chronic Kidney Disease Other Surgeries: Hx of surgeries - [facility] Procedures FLUOROSCOPY OF MULT COR ART USING L OSM CONTRAST (11/29/16) FLUOROSCOPY OF THORACIC AORTA (11/29/16) MEASURE OF CARDIAC SAMPL & PRESSURE, L HEART, PERC APPROACH (11/29/16) Family History: States: No Known Family Hx - Social History Hx Tobacco Use: No Hx Alcohol Use: No Hx Substance Use: No - Immunization History Hx Tetanus Toxoid Vaccination: Yes Hx Influenza Vaccination: Yes Hx Pneumococcal Vaccination: Yes Review Of Systems Except As Marked, All Systems Reviewed And Found Negative. Constitutional: Negative for: Fever, Chills Cardiovascular: Positive for: Chest Pain Respiratory: Negative for: Cough, Shortness of Breath Gastrointestinal: Negative for: Nausea, Vomiting Neurological: Negative for: Dizziness Physical Exam - Physical Exam Appears: Non-toxic, No Acute Distress Skin: Warm, Dry, Rash (macular erythematous rash with white patches underneath bilateral breasts) Head: Atraumatic, Normacephalic Eye(s): bilateral: Normal Inspection Nose: Normal Oral Mucosa: Moist Neck: Supple Chest: Symmetrical, No Tenderness Cardiovascular: Rhythm Regular Respiratory: Normal Breath Sounds, No Rales, No Rhonchi, No Wheezing Gastrointestinal/Abdominal: Normal Exam, Soft, No Tenderness, No Guarding, No Rebound Back: Normal Inspection, No Vertebral Tenderness Extremity: Deformity (contracture right arm) Neurological/Psych: Oriented x3, Normal Speech ED Course And Treatment - Laboratory Results Result Diagrams: 04/25/18 10:46 04/25/18 10:46 O2 Sat by Pulse Oximetry: 98 (RA) Pulse Ox Interpretation: Normal Medical Decision Making Medical Decision Making: Impression: Chest Pain Plan: * Labs * EKG * CXR * UA * Aspirin PO Progress: all labs reviewed. Triglycerides slight elevation, otherwise negative troponin. Patient remained well and comfortable during ED observation, she declined any episode of pain to chest while being evaluated. She has stable vitals and no SOB. I explained her results and the plan for discharge home with strict follow up with her tongue presser DR Ahn and PMD DR Pinedo. Patient understands and feels comfortable going home. Patient has her caddy master accompanying her home. Disposition Counseled Patient/Family Regarding: Studies Performed, Diagnosis, Need For Followup - Disposition Referrals: Shoaib Ahn MD [Staff Provider] - Boaz Pinedo MD [Staff Provider] - Disposition: HOME/ ROUTINE Disposition Time: 12:50 Condition: STABLE Additional Instructions: Es importante que argenis un seguimiento con el Dr. Ahn y el Dr. Pinedo primario en los prximos ramos para cristela evaluacin adicional. [place] mauri medicamentos diariamente rosy de costumbre. Regreso al hospital si el dolor empeora u otra preocupacin. Instructions: Chest Pain (DC) Forms: [employer] (Icelandic) Print Language: ALGERIAN - POA Present On Arrival: None - Clinical Impression Clinical Impression: Chest discomfort - PA / GERIATRICS PHYSICIAN / Resident Statement MD/DO has reviewed & agrees with the documentation as recorded. - Scribe Statement The provider has reviewed the documentation as recorded by the Scribe Sterling Santana Provider Attestation All medical record entries made by the Scribe were at my direction and pers onally dictated by me. I have reviewed the chart and agree that the record accurately reflects my personal performance of the history, physical exam, medical decision making, and the department course for this patient. I have also personally directed, reviewed, and agree with the discharge instructions and disposition.
[2018-04-25 11:36] LABS: SQUAMOUS EPITHIAL 20 /hpf (0-5); URINE BACTERIA RARE (<OCC); URINE BILIRUBIN NEGATIVE (NEGATIVE); URINE BLOOD NEGATIVE (NEGATIVE); URINE CLARITY Hazy (Clear); URINE COLOR Yellow (YELLOW); URINE GLUCOSE (UA) NORMAL (Normal); URINE LEUKOCYTE ESTERASE 3+ Leu/uL (Negative); URINE PROTEIN 1+ mg/dL (NEGATIVE); URINE UROBILINOGEN NORMAL mg/dL (0.2-1.0)
--- NOTE | 2018-04-25 13:43 | RAD ---
Date of service: 04/25/2018 HISTORY: Chest pain COMPARISON: 05/08/2017. TECHNIQUE: Chest PA and lateral FINDINGS: LUNGS: No active pulmonary disease. PLEURA: No significant pleural effusion identified. No pneumothorax apparent. CARDIOVASCULAR: No aortic atherosclerotic calcification present. Normal cardiac size. No pulmonary vascular congestion. OSSEOUS STRUCTURES: No significant abnormalities. VISUALIZED UPPER ABDOMEN: Normal. OTHER FINDINGS: None. IMPRESSION: No active disease. No significant interval change compared to the prior examination(s).
[2018-04-26 00:07] VITALS: BP 119/75; PULSE 63; RESP 22; TEMP 98.1
--- NOTE | 2018-05-02 17:57 | CARD ---
APPROVED REPORT Date of service: 04/25/2018 EKG Measurement Heart [id number] NC 148P52 [id number] <Conclusion> Sinus rhythm with premature atrial complexes Otherwise normal ECG
== END 2018-04-25 12:50 | disposition home or self-care (01) ==
LOC: C.ER 09:42
DX: R07.89 Other chest pain (principal); I10 Essential (primary) hypertension; E11.9 Type 2 diabetes mellitus without complications; Z79.4 Long term (current) use of insulin; I25.10 Atherosclerotic heart disease of native coronary artery without angina pectoris; E78.00 Pure hypercholesterolemia, unspecified

== ENCOUNTER 2018-05-22 20:03 | Emergency (ER) | payer MEDICARE, MEDICAID ==
[2018-05-22 20:04] VITALS: BMI 28.7
--- NOTE | 2018-05-22 20:09 | C.PDOC ---
History Of Present Illness 57 year old female with PMHx of CVA presents to the ED c/o intermittent chest pain since yesterday. Patient states pain started after having lunch at noon yesterday. 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 Patient currently has left sided chest wall pressure. Patient denies fever, chills, nausea, vomit, diarrhea, back pain, weakness, numbness. Just wants to be checked out. Time Seen by Provider: 05/22/18 20:09 Chief Complaint (Nursing): Chest Pain History Per: Patient History/Exam Limitations: no limitations Onset/Duration Of Symptoms: Days Current Symptoms Are (Timing): Still Present Severity: Mild Pain Scale Rating Of: 4 Quality: Pressure Recent travel outside of the [place]: No Additional History Per: Patient Past Medical History Reviewed: Historical Data, Nursing Documentation, Vital Signs - Medical History PMH: Anemia, CVA (affecting right side), Diabetes, HTN, Hypercholesterolemia, Sleep Apnea (USES C PAP) Denies: Chronic Kidney Disease Surgical History: No Surg Hx - [facility] Procedures FLUOROSCOPY OF MULT COR ART USING L OSM CONTRAST (11/29/16) FLUOROSCOPY OF THORACIC AORTA (11/29/16) MEASURE OF CARDIAC SAMPL & PRESSURE, L HEART, PERC APPROACH (11/29/16) Family History: States: No Known Family Hx - Social History Hx Tobacco Use: No Hx Alcohol Use: No Hx Substance Use: No - Immunization History Hx Tetanus Toxoid Vaccination: Yes Hx Influenza Vaccination: Yes Hx Pneumococcal Vaccination: Yes Review Of Systems Constitutional: Negative for: Fever, Chills Eyes: Negative for: Vision Change Cardiovascular: Positive for: Chest Pain. Negative for: Palpitations Respiratory: Negative for: Cough, Shortness of Breath Gastrointestinal: Negative for: Nausea, Vomiting, Abdominal Pain Musculoskeletal: Negative for: Back Pain Skin: Negative for: Rash Neurological: Negative for: Weakness, Numbness, Headache Physical Exam - Physical Exam Appears: Non-toxic, No Acute Distress Skin: Warm, Dry, Rash (under breasts) Head: Normacephalic Eye(s): bilateral: Normal Inspection Oral Mucosa: Moist Neck: Supple Chest: Symmetrical Cardiovascular: Rhythm Regular Respiratory: No Rales, No Rhonchi, No Wheezing Gastrointestinal/Abdominal: Bowel Sounds (active), Soft, No Tenderness, No Guarding, No Rebound Back: Normal Inspection Extremity: Capillary Refill (< 2 seconds) Extremity: Left: Normal ROM, Right: Other (right arm contracted s/p CVA), Bilateral: Atraumatic, Normal Color And Temperature Neurological/Psych: Oriented x3, Normal Speech, Normal Cognition Gait: Steady ED Course And Treatment - Laboratory Results Result Diagrams: 05/22/18 20:39 05/22/18 20:39 ECG: Interpreted By Me, Viewed By Me ECG Rhythm: Sinus Rhythm (83), Nonspecific Changes O2 Sat by Pulse Oximetry: 98 (ON RA) Pulse Ox Interpretation: Normal - Radiology CXR: Interpreted by Me, Viewed By Me CXR Interpretation: Yes: Other (unchanged from 04/25/18). No: Infiltrates, Fracture, Pnemothorax Progress Note: Plan: - EKG. - Labs. - CXR. 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 10:46 PM pt feels fine and wants to go home.patient is cp free. States she will return if symptoms recur. Patient remained well and comfortable during ED observation, she declined any episode of pain to chest while being evaluated. She has stable vitals and no SOB. I explained her results and the plan for discharge home with strict follow up with her regional tanker truck driver DR Ahn and PMD DR Pinedo. Patient understands and feels comfortable going home. Patient has her traffic police officer accompanying her home. Reevaluation Time: 22:46 Reassessment Condition: Improved Disposition Counseled Patient/Family Regarding: Studies Performed, Diagnosis, Need For Followup - Disposition Referrals: Boaz Pinedo MD [Staff Provider] - Disposition: HOME/ ROUTINE Disposition Time: 20:09 Condition: FAIR Additional Instructions: Please return if symptoms recur Instructions: Chest Pain (DC) Forms: [facility] ([place] Citizen) - Clinical Impression Clinical Impression: Chest pain - Scribe Statement The provider has reviewed the documentation as recorded by the Scribe Dilan Collins All medical record entries made by the Scribe were at my direction and personally dictated by me. I have reviewed the chart and agree that the record accurately reflects my personal performance of the history, physical exam, medical decision making, and the department course for this patient. I have also personally directed, reviewed, and agree with the discharge instructions and disposition.
[2018-05-22] MEDS ORDERED: Aspirin 325 mg EC Tablets PO STA (20:30)
[2018-05-22 20:45] LABS: BASO # 0.1 K/uL (0.0-0.2); BASO % 0.6 % (0.0-2.0); EOS # 0.1 K/uL (0.0-0.7); LYMPH # 3.7 K/uL (1.0-4.3); LYMPH % 37.1 % (20.0-40.0); MEAN CELL VOLUME 83.9 fL (81.0-99.0); MEAN CORPUSCULAR HEMOGLOBIN 26.3 pg (27.0-31.0); MEAN CORPUSCULAR HGB CONC 31.4 g/dL (33.0-37.0); MEAN PLATELET VOLUME 9.6 fL (7.2-11.7); MONO # 0.8 K/uL (0.0-0.8); MONO % 8.1 % (0.0-10.0); NEUT # 5.4 K/uL (1.8-7.0); NEUT % 53.2 % (50.0-75.0); RBC 4.57 Mil/uL (3.80-5.20); RED CELL DISTRIBUTION WIDTH 16.4 % (11.5-14.5); WHITE BLOOD COUNT 10.1 K/uL (4.8-10.8)
[2018-05-22 20:54] LABS: PROTHROMBIN TIME 10.9 SECONDS (9.7-12.2)
[2018-05-22 21:09] LABS: TROPONIN I 0.019 ng/mL (0.00-0.120)
[2018-05-22 21:13] LABS: ALB/GLOB RATIO 1.5 (1.0-2.1); ALBUMIN 4.4 g/dL (3.5-5.0); CALCIUM 9.5 mg/dl (8.6-10.4)
[2018-05-22 22:21] LABS: SQUAMOUS EPITHIAL 1 /hpf (0-5); URINE BILIRUBIN NEGATIVE (NEGATIVE); URINE BLOOD NEGATIVE (NEGATIVE); URINE CLARITY Hazy (Clear); URINE COLOR Yellow (YELLOW); URINE GLUCOSE (UA) NORMAL (Normal); URINE LEUKOCYTE ESTERASE 3+ Leu/uL (Negative); URINE PROTEIN 1+ mg/dL (NEGATIVE); URINE UROBILINOGEN NORMAL mg/dL (0.2-1.0)
[2018-05-22 23:12] VITALS: BP 142/66; PULSE 80; RESP 18; TEMP 98.4; O2SAT 95
--- NOTE | 2018-05-23 09:43 | RAD ---
Chest x-ray single frontal view HISTORY: Chest pain. COMPARISON: 04/25/2018 FINDINGS: Mild venous congestion. Mild bilateral hilar prominence. Left basilar atelectasis. Tortuous aorta. Heart size within normal limits. Degenerative changes in the spine and shoulders. Impression: Mild venous congestion. Mild bilateral hilar prominence. Left basilar atelectasis. Tortuous aorta. Heart size within normal limits.
--- NOTE | 2018-05-23 17:51 | CARD ---
APPROVED REPORT Date of service: 05/22/2018 EKG Measurement Heart [id number] CO 130P41 [id number] <Conclusion> Sinus rhythm with premature supraventricular complexes Misplaced precordial electrodes - Please repeat Abnormal ECG
== END 2018-05-22 23:20 | disposition home or self-care (01) ==
LOC: C.ER 20:03
DX: R07.9 Chest pain, unspecified (principal); I10 Essential (primary) hypertension; E78.00 Pure hypercholesterolemia, unspecified; Z86.73 Personal history of transient ischemic attack (TIA), and cerebral infarction without residual deficits

== ENCOUNTER 2018-08-17 10:24 | Outpatient (CLI) | payer MEDICARE, MEDICAID | END 2018-08-17 10:25 | disposition home or self-care (01) | LOC: C.PAT 10:24 | DX: E11.9 Type 2 diabetes mellitus without complications (principal) ==

== ENCOUNTER 2018-08-18 10:35 | Day surgery (SDC) | payer MEDICARE, MEDICAID ==
[2018-08-17 08:10] VITALS: BMI 33.8
[2018-08-18] MEDS ORDERED: Lidocaine 2% MPF (5 ml) Inj ONE ×2 (12:19→12:38)
[2018-08-18] MEDS ORDERED: Midazolam 2 MG/2 ML VIAL ONE (12:19)
[2018-08-18] MEDS ORDERED: Iodixanol 320 MG/ML 200 ML BOTTLE IV ONE (12:20)
[2018-08-18] MEDS ORDERED: Iodixanol 320 MG/ML 100 ML BOTTLE IV ONE ×2 (12:20→12:45)
[2018-08-18] MEDS ORDERED: Nitroglycerin 50mg in D5W 50 MG/250 ML BOTTLE IV ONE (12:20)
[2018-08-18] MEDS ORDERED: Sodium Chloride 0.9% 1,000 ML IV SCH (13:15)
--- NOTE | 2018-08-29 01:31 | CARDCATH ---
PROCEDURE DATE: 08/18/2018 PROCEDURES: 1. Left heart catheterization. 2. Coronary angiogram. CLINICAL INDICATIONS: 1. Chest pain. 2. Abnormal stress test. 3. Diabetes. 4. Hyperlipidemia. 5. Hypertension. 6. History of coronary artery disease and stent placement. REFERRING PHYSICIAN: Reshma Carrasco DO. PERFORMING PHYSICIAN: Shoaib Ahn MD. DESCRIPTION OF PROCEDURE: After informed consent, the patient was prepped and draped in the usual sterile fashion. Lidocaine 2% was given in the right groin for local anesthesia. Using micropuncture technique, 6-Yoruba sheath was introduced into right common femoral artery. A JL4 6-Yoruba diagnostic catheter engaged into left main coronary artery. Contrast injected and left coronary angiogram was done. The patient has single coronary artery disease. Then 5-Yoruba pigtail catheter was inserted into left ventricle. Contrast injected and left ventricular angiogram was done. LVEDP measured. The catheter was pulled back across the aortic valve. Gradient across the aortic valve was measured. The patient tolerated the procedure well. Postprocedure, Mynx closure device was deployed in the right groin with excellent hemostasis. FINDINGS: 1. The patient has a single coronary artery disease. LAD, left circumflex and RCA arise from the single left main coronary artery. 2. Left main, LAD, and diagonal branches are patent. 3. Right coronary artery is dominant and patent. 4. Left circumflex has a proximal 85% stenosis. Mid and distal left circumflex stents are patent. 5. LV ejection fraction is approximately 60%. No valve motion abnormalities noted. EDP is 14. No gradient across the aortic valve. IMPRESSION: Single coronary artery disease. Left main, left anterior descending and right coronary arteries are patent. Left circumflex has a proximal 85% stenosis. Prior stents in the left circumflex are patent. RECOMMENDATIONS: Recommend coronary intervention of the left circumflex coronary artery. Shoaib Ahn MD
== END 2018-08-18 16:58 | disposition home or self-care (01) ==
LOC: C.CATHLAB 10:35
PROVIDERS: ATTEND Internal Medicine Cardiovascular Disease
DX: I25.10 Atherosclerotic heart disease of native coronary artery without angina pectoris (principal); R94.39 Abnormal result of other cardiovascular function study; E11.9 Type 2 diabetes mellitus without complications; Z86.73 Personal history of transient ischemic attack (TIA), and cerebral infarction without residual deficits; E78.5 Hyperlipidemia, unspecified; I10 Essential (primary) hypertension; Z95.5 Presence of coronary angioplasty implant and graft
CPT/HCPCS: 82948; 93458; 93567; C1760; C1769; C1887; C1893; J1644; J2250; J3010; J7030; Q9966; Q9967